=== PATIENT | male | born 1955 | race Caucasian/White ===

== ENCOUNTER 2023-09-08 07:35 | Outpatient (CLI) | payer MEDICARE, SELFPAY ==
--- OUTSIDE RECORDS SUMMARY | 2023-09-08 13:27 | XMS_ITS | Clinical Summary ---
Author Organization [facility] er Address [address] [place] [address] Care Team Providers Care Web Design Specialist Name Role Phone Morales Andrade MD Primary Care Provider Allergies No known active allergies Medications Medication Sig Dispensed Refills Start Date End Date Status aspirin 81 MG chewable tablet Chew 1 tablet (81 mg total) 1 (one) time each day Active Blood Glucose Monitoring Suppl kit 04/15/2011 Acti ve sildenafil (Viagra) 100 MG tabletIndications:Erec tile dysfunction, unspecified erectile dysfunction type May take 1/2 to one pill as needed in one day for ED 30 tablet 10 05/24/2020 Active triamcinolone (KENALOG) 0.1 % creamIndications:Itch of skin May use a small amount up to twice a day as needed for skin/ear itch 30 g 5 08/25/2021 Active amoxicillin (AMOXIL) 500 MG capsule 11/17/2021 Active Lancets miscIndications:Type 2 diabetes mellitus with other specified complication, without long-term current use of insulin ([facility]) ACCU-CHEK FASTCLIX LANCETS USE ONE LANCET TWICE A DAY. 200 each 3 12/11/2021 Active metFORMIN XR (GLUCOPHAGE-XR) 500 MG 24 hr tabletIndications:Type 2 diabetes mellitus with other specified complication, without long-term current use of insulin ([facility]) TAKE 2 TABLETS BY MOUTH TWICE A DAY FOR DIABETES. DO NOT CRUSH, CHEW, OR SPLIT. 360 tablet 3 08/31/2022 Active Empagliflozin 25 MG tabletIndications:Type 2 diabetes mellitus with other specified complication, without long-term current use of insulin ([facility]) Take one pill once a day in the AM for diabetes 90 tablet 3 08/31/2022 Active ezetimibe (ZETIA) 10 MG tabletIndications:Mixe d hyperlipidemia Take 1 tablet (10 mg total) by mouth 1 (one) time each day 90 tablet 3 08/31/2022 Active lisinopril (ZESTRIL) 20 MG tabletIndications:Esse ntial hypertension Take 1 tablet (20 mg total) by mouth 1 (one) time each day 90 tablet 3 08/31/2022 Active metoprolol succinate XL (TOPROL-XL) 50 MG 24 hr tabletIndications:Esse ntial hypertension Take one a day for blood pressure heart 90 tablet 3 08/31/2022 Active pramipexole (MIRAPEX) 0.5 MG tabletIndications:RLS (restless legs syndrome) May take ONE or as directed at night to help with restless legs 90 tablet 3 08/31/2022 Active rosuvastatin (CRESTOR) 20 MG tabletIndications:Mixe d hyperlipidemia Take 1 tablet (20 mg total) by mouth 1 (one) time each day 90 tablet 3 08/31/2022 Active nitroglycerin (NITROSTAT) 0.4 MG SL tabletIndications:ASCV D (arteriosclerotic cardiovascular disease) TAKE 1 PILL NEEDED FOR CHEST PAIN, MAY REPEAT EVERY 5 MINUTES IF NEEDED BUT IF NO RESPONSE BY THIRD DOSE CALL 911.USE UNDER TONGUE 25 tablet 3 03/03/2023 Active Active Problems Problem Noted Date Diagnosed Date RLS (restless legs syndrome) 10/11/2019 Mixed hyperlipidemia 12/08/2016 Unspecified disorder of circulatory system 12/08 Atherosclerotic heart diseas e of [place] coronary artery without angina pectoris 06/30/2016 Presence of aortocoronary bypass graft 7 Type 2 diabetes mellitus without complications 0 06/30/2016 Coronary artery disease invo lving coronary bypass graft of [place] heart without angina pectoris 11/28/2014 Overview: Overview: 08/1999 - CABG x 4 with a MORALES to LAD, SVG to the mLAD, SVG to the OM, and a SVG to the PDA Essential hypertension, benign 11/28/2014 Adenomatous colon polyp 03/24/2011 Advanced directives, counseling/discussion 07/29 Overview: Advance Directive Problem List Overview: Name Relationship Phone Primary Health Care Agent Alternative Health Care Agent Discussed advance care planning with patient; however, patient declined at this time. 07/29/2010 DDD (degenerative disc disease), lumbar 12/29/19 09 Encounters Date Type Department Care Team Description 08/17/2023 Orders Only [facility] Medicine 4th Floor [address] [place] [address] Morales Andrade MD Type 2 diabetes mellitus without complications (HCC) 08/04/2023 Orders Only Family Medicine 4th Floor [address] [place] [id number] Morales Andrade MD from Last 3 Months Immunizations Name Administration Dates Next Due COVID-19, mRNA, LNP-S, PF, 3 0mcg/0.3mL dose Pfizer 06/19/2021,11/16/2020 COVID-19, mRNA, LNP-S, bival ent booster 12 yr and older, PF, 30mcg/0.3mL dose (pfizer) 11/19/2021 Flu Vaccine High Dose 65yrs and Older IM 11/17/2022,11/14/2021,11/07/2020,11/08 INFLUENZA QUADRIVALENT MDV (IM) 12/25/2015,12/04 Influenza 6mo-64yrs Quad Pre servative Free IM 10/25/2018,11/16/2017,12/08/2016,12/24,12/04/2014 Influenza TIV (IM) 12/31/2013,12/02/2009 Pneumococcal Conjugate 13-Valent 06/30/2016 Pneumococcal Polysaccharide 06/17/2018 TD Preservative Free 03/23/2006 Tdap 06/30/2016 Zoster Recombinant 02/24/2018,11/16/2017 Family History Medical History Relation Comments Diabetes Brother 1 Vision loss Brother 1 Early Father Cancer Mother LUNG Relation Status Comments Brother 1 Alive Brother 2 Alive Father Mother Social History Tobacco Use Types Packs/Day Years Used Date Smoking Tobacco: Former Cigarettes Q uit: 07/13/1998 Smokeless Tobacco: Never Tobacco Cessation:Counseling Given: Not Answered Alcohol Use Standard Drinks/Week Comments No 0 (1 standard drink = 0.6 oz pur e alcohol) Humiliation, Afraid, Rape, and Kick questionnair e Answer Date Recorded Within the last year, have y ou been afraid of your partner or ex-partner? No 08/24/2022 Within the last year, have y ou been humiliated or emotionally abused in other ways by your partner or ex-partner? No Within the last year, have y ou been kicked, hit, slapped, or otherwise physically hurt by your partner or ex-partner? No 08/24/2022 Within the last year, have y ou been raped or forced to have any kind of sexual activity by your partner or ex-partner? No 08/24/2022 Social Connection and Isolation Panel [NHANES] A nswer Date Recorded In a typical week, how many times do you talk on the phone with family, friends, or neighbors? Three times a week 08/25/19 How often do you get togethe r with friends or relatives? Twice a week 08/24/2022 How often do you attend [facility] or jehovah's witness services? 1 to 4 times per year 08/24/2022 Do you belong to any clubs o r organizations such as roman catholic groups, unions, fraternal or athletic groups, or school groups? Yes 08/24/2022 How often do you attend meet ings of the clubs or organizations you belong to? 1 to 4 times per year 08/24/2022 Are you , , di vorced, , never , or living with a partner? 08/24/2022 AUDIT-C Answer Date Recorded Q1: How often do you have a drink containing alc ohol? 2-4 times a month 08/24/2022 Q2: How many drinks containi ng alcohol do you have on a typical day when you are drinking? 1 or 2 08/24/2022 Q3: How often do you have si x or more drinks on one occasion? Never 08/24/2022 Overall Financial Resource Strain (CARDIA) Answe r Date Recorded How hard is it for you to pa y for the very basics like food, housing, medical care, and heating? Not hard at all 08/24/2022 PHQ-2 Answer Date Recorded PHQ-9 Total Score 2 08/24/2022 [facility] - Occupational Stress Questionnaire Answer Date Recorded Do you feel stress - tense, restless, nervous, or anxious, or unable to sleep at night because your mind is troubled all the time - these days? To some extent 08/24/2022 Exercise Vital Sign Answer Date Recorde d On average, how many days pe r week do you engage in moderate to strenuous exercise (like a brisk walk)? 3 days 08/24/2022 On average, how many minutes do you engage in exercise at this level? 40 min 08/24/2022 Hunger Vital Sign Answer Date Recorded Within the past 12 months, y ou worried that your food would run out before you got the money to buy more. Never true 08/25/19 23 Within the past 12 months, t he food you bought just didn't last and you didn't have money to get more. Never true 08/24/2022 PRAPARE - Transportation Answer Date Re corded In the past 12 months, has l ack of transportation kept you from medical appointments or from getting medications? No 08/08 In the past 12 months, has l ack of transportation kept you from meetings, work, or from getting things needed for daily living? No 08/24/2022 Housing Stability Vital Sign Answer Kit e Recorded In the last 12 months, was t here a time when you were not able to pay the mortgage or rent on time? No 08/24/2022 In the last 12 months, how many places have you lived? 1 08/24/2022 In the last 12 months, was t here a time when you did not have a steady place to sleep or slept in a half-way (including now)? No 08/24/2022 Education Answer Date Recorded What is the highest level of school you have completed or the highest degree you have received? Some college, no degree 08/25/2021 Sex and Gender Information Value Date Recorded Sex Assigned at Not on file Gender Identity Not on file Sexual Orientation Not on file Last Filed Vital Signs Vital Sign Reading Time Taken Comments Blood Pressure 126/73 08/31/2022 8:13 AM CDT Pulse 52 08/31/2022 8:13 AM CDT Temperature 36.3 ??C (97.4 ??F) 08/31/2022 8:13 AM CD T Respiratory Rate 14 08/31/2022 8:13 AM CDT Oxygen Saturation 94% 08/31/2022 8:13 AM CDT Inhaled Oxygen Concentration - - Weight 78.9 kg (174 lb) 08/31/2022 8:13 AM CDT Height 173 cm (5' 8.11) 08/31/2022 8:13 AM CDT Body Mass Index 26.37 08/31/2022 8:13 AM CDT Plan of Treatment Health Maintenance Due Date Last Done Comments CT Colonography 1954 FIT-DNA 1954 Sigmoidoscopy 1954 iFOBT 1954 COVID-19 Vaccine ( season) 2022 11/19/2021, 06/19/2021, 11/16/2020 Diabetes: Hemoglobin A1C 02/25/2023 023, 11/18/2021, 08/21/2021, Additional history exists Diabetes: Retinopathy Screening 06/18/2023 06/17/2021, 07/02/2020, 08/03/2016 Pneumococcal Vaccine: 65+ Years (3 of 3 - PPSV23 or PCV20) 06/18/2023 06/17/2018, 06/30/2016 Colonoscopy 08/18/2023 08/17/2013, 02/2013, 01/22/2005 Colorectal Cancer Screening 08/18/2023 Diabetes: Urine Protein Screening 08/26/2023 08/25/2022, 10/11/2019, 12/04/2016 Lipid Panel 08/26/2023 08/25/2022, 11/09, 12/03/2021, Additional history exists Diabetic: Foot Exam 09/01/2023 08/31/2022, 08/25/2021, 05/24/2020, Additional history exists Fall Risk Performed 09/01/2023 08/31/2022 Medicare Annual Wellness Visit (AWV) 09/01/2023 08/31/2022 Influenza Vaccine (#1) 2023 , 11/14/2021, 11/07/2020, Additional history exists DTaP,Tdap,and Td Vaccines (2 - Td or Tdap) 06/30/2026 06/30/2016, 03/23/2006 Zoster Vaccines Completed 02/24/2018, 11/16/2017 HPV Vaccines Aged Out No longer eligi ble based on patient's age to complete this topic Procedures Procedure Name Priority Date/Time Associated Diagnosis Comments MICROALBUMIN/CREATI NINE RATIO Routine 08/25/2022 8:15 AM CDT Type 2 diabetes mellitus with other specified complication, without long-term current use of insulin (HCC) HEMOGLOBIN A1C Routine 08/25/2022 8:10 AM CDT Type 2 diabetes mellitus with other specified complication, without long-term current use of insulin (HCC) LIPID PANEL Routine 08/25/2022 8:10 AM CDT Mixed hyperlipidemia from Last 3 Months or Most Recently Relevant to Health Maintenance Results * Microalbumin/Creatinine Ratio (08/25/2022 8:15 AM CDT) Microalbumin,mg/ day 8.6 0.0 - 16.6 mg/L 08/25/2022 1:23 PM CDT [facility] Creatinine, Urine 114 mg/dL 08/25/2022 1:18 PM CDT [facility] Comment: No established reference range. Microalb/Creat Ratio 8 0 - 16 mg/g 08/25/2022 1:23 PM CDT [facility] Urine 08/25/2022 8:15 AM CDT 08/25/2022 12:28 PM CDT Rachell Flores MD LAB URINE ORDERABLES [facility] [address] [place] [address] * (ABNORMAL) Hemoglobin A1c (08/25/2022 8:10 AM CDT) Hemoglobin A1C 7.2(H) 4.0 - 5.6 % A1C 08/25/2022 1:39 PM CDT [facility] Comment: Reference Range 4.0-5.6% is for non- adults >=18 yrs <5.6% ? Non-Diabetic 5.7-6.4% ??Increased risk of Diabetes >=6.5% ?Indicative of Diabetes <7.0% ? ADA goal for glycemic control Methodology may not detect all hemoglobin variants which can affect A1c results. Method certified by National Glycohemoglobin Standardization Program. Blood 08/25/2022 8:10 AM CDT 08/25/2022 12:28 PM CDT Rachell Flores MD LAB BLOOD ORDERABLES [facility] [address] [place] [address] * Lipid panel (08/25/2022 8:10 AM CDT) Cholesterol 108 0 - 199 mg/dL 08/25/2022 1:40 PM T [facility] Comment: Recommended by National Cholesterol Education Program (ATP III) -------- Cholesterol Ranges -------- <200 ?Desirable 200-239 ? Borderline high >=240 ? High Triglycerides 85 0 - 149 mg/dL 08/25/2022 1:40 PM T [facility] Comment: -------- TRIG Ranges -------- <150 ?Normal 150-199 ? Borderline high 200-499 ? High >=500 ? Very high HDL 42 40 - 250 mg/dL 08/25/2022 1:40 PM T [facility] Comment: -------- HDL Ranges -------- <40 ?Low 40-59 ?Normal >=60 ? Optimal LDL Calculated 49 0 - 99 mg/dL 08/25/2022 1:40 PM CDT [facility] Comment: -------- LDL Ranges -------- <100 ? Optimal 100-129 ?Near optimal/above optimal 130-159 ?Borderline high 160-189 ?High >=190 ?Very high Fasting? Yes 08/25/2022 8:13 AM CDT [facility] Blood (Blood, Venous) 08/25/2022 8:10 AM CDT 08/25/2022 12:28 PM CDT Rachell Flores MD LAB BLOOD ORDERABLES [facility] [address] [place] [address] from Last 3 Months or Most Recently Relevant to Health Maintenance Care Teams Web Design Specialist Relationship Specialty Start Date End Date Morales Andrade MD [address] [place] [address] PCP - General 11/26/22
--- OUTSIDE RECORDS SUMMARY | 2023-09-08 13:27 | XMS_ITS | Encounter Summary ---
Author Organization [facility] er Address [address] [place] [address] Care Team Providers Care Packaging Line Attendant Name Role Phone Morales Andrade MD Primary Care Provider [phone] Reason for Referral * Consultation (Routine) - Authorized Specialty Diagnoses / Procedures Referred By Contac t Referred To Contact Virtual Care Diagnoses Type 2 diabetes mellitus without complications (HCC) Morales Andrade MD [address] [place] [address] [facility] Remote Monitoring [address] [place] [address] Referral ID Status Reason Start Date Expiration Date V isits Requested Visits Authorized [id number] Authorized 08/17/2023 08/17/2024 1 1 Encounter Details Date Type Department Care Team (Late st Contact Info) Description 08/17/2023 Orders Only [facility] 4th Floor [address] [place] [id number] Morales Andrade MD [address] [place] [address] Type 2 diabetes mellitus without complications (HCC) Social History Tobacco Use Types Packs/Day Years Used Date Smoking Tobacco: Former Cigarettes Q uit: 07/13/1998 Smokeless Tobacco: Never Alcohol Use Standard Drinks/Week Comments No 0 [...] week 08/24/2022 How often [facility] you attend [facility] services? 1 to 4 times per year 08/24/2022 Do you belong to any clubs o r organizations such as samaritan groups, unions, fraternal or athletic groups, or [...] Date Recorded PHQ-9 Total Score 2 08/24/2022 [facility] - Occupational [...] on file Sexual Orientation Not on file documented as of this encounter Plan of Treatment Scheduled Referrals Name Type Priority Associated Diagnoses Orde r Schedule Ambulatory Referral for Remote Monitoring Outpatient Referral Routine Type 2 diabetes mellitus without complications (HCC) Ordered: 08/17/2023 documented as of this encounter Visit Diagnoses Diagnosis Type 2 diabetes mellitus without complications (HCC) documented in this encounter Care Teams Packaging Line Attendant Relationship Specialty Start Date End Date Morales Andrade MD [address] [place] [address] PCP - General 11/26/22 documented as of this encounter
--- OUTSIDE RECORDS SUMMARY | 2023-09-08 13:28 | XMS_ITS | Encounter Summary ---
Author Organization [facility] Address [address] [place] [id number] Care Team Providers Care Green Marketer Name Role Phone Francisco Kumar MD Primary Care Provider [phone] Zacarias Flores Primary Care Provider Francisco Kumar MD Unavailable Francisco Kumar MD Unavailable [phone] Scott Hair MD Unavailable Scott Hair MD Unavailable Ana Maria Tinsley APRN SWATCH PASTER Unavailable Ana Maria Tinsley APRN SWATCH PASTER Unavailable Scott Hair MD Unavailable Scott Hair MD Unavailable Encounter Details Date Type Department Care Team (Late st Contact Info) Description 02/03/2010 [facility] Medical Advice [address] [address] Michaelle [facility] Social History Tobacco Use Types Packs/Day Years Used Date Smoking Tobacco: Former Comments:quit in about 1998; smoked about 2 ppd x 30 years Alcohol Use Standard Drinks/Week Comments Yes 0 (1 standard drink = 0.6 oz pur e alcohol) less than weekly Sex and Gender Information Value Date Recorded Sex Assigned at Male 09/20/2021 10:43 AM CDT Gender Identity Male 09/20/2021 10:43 AM CDT Sexual Orientation Not on file documented as of this encounter Plan of Treatment Upcoming Encounters Date Type Department Care Team (Late st Contact Info) Description 11/03/2023 7:45 AM CDT Office Visit [facility] [address] [facility] [address] [place] [phone] Scott Hair MD [address] [place] [address] documented as of this encounter Visit Diagnoses Not on filedocumented in this encounter Care Teams Green Marketer Relationship Specialty Start Date End Date Francisco Kumar MD PCP - General Internal Medicine 07/23/09 10/25/17 Zacarias Flores [address] [facility] [address] [place] [address] PCP - General Family Practice 10/26/17 [place] [address] [place] [address] [place] [address] PCP - Assigned PCP 03/23/16 04/12/18 [place] [address] [place] [address] [place] [id number] Assigned PCP 03/23/16 12/24/18 Scott Hair MD [address] [place] [address] Assigned Heart and Vascular Provider 12/01/19 05/18/20 Scott Hair MD [address] [place] [address] Assigned Heart and Vascular Provider 12/15/20 06/05/22 Ana Maria Tinsley APRN SWATCH PASTER [address] [place] [id number] Nurse Practitioner Cardiovascular Disease 11/26/21 Ana Maria Tinsley APRN SWATCH PASTER [address] [place] [id number] Assigned Heart and Vascular Provider 06/06/22 07/24/22 Scott Hair MD [address] [place] [id number] Cardiovascular Disease 07/09/22 Scott Hair MD [address] [place] [id number] Assigned Heart and Vascular Provider 07/25/22 documented as of this encounter
--- OUTSIDE RECORDS SUMMARY | 2023-09-08 13:28 | XMS_ITS | Encounter Summary ---
Author Organization [facility] Address [address] [place] [address]. [place] [address] Care Team Providers Care Data Analysis Intern Name Role Phone Gabo Poole MD Primary Care Provider [phone] Zacarias Flores Primary Care Provider Gabo Poole MD Unavailable [phone] Gabo Poole MD Unavailable [phone] Scott Hair MD Unavailable [phone] Scott Hair MD Unavailable Ana Maria Tinsley APRN CERTIFIED TUMOR REGISTRAR Unavailable Ana Maria Tinsley APRN CERTIFIED TUMOR REGISTRAR Unavailable [phone] Scott Hair MD Unavailable Scott Hair MD Unavailable Encounter Details Date Type Department Care Team (Late st Contact Info) Description 07/09/2010 Office Visit-[facility] [place] [id number] [facility] [address] [place] [address] Scott Hair MD [address] [facility] [address] [place] [id number] Social History Tobacco Use Types Packs/Day Years [...] on file documented as of this encounter Progress Notes * Scott Hair MD - 07/10/2010 1:40 PM CDT Progress Note Created by: Scott Hair M.D. DATE: 07/09/2010 ZAHRA ESCOBAR DATE OF : 1955 AGE: [age] years old Referring Physician: GABO POOLE Referring Clinic: [facility] CURRENT DIAGNOSES 1. - CAD, 414.00 2. - Hypercholesterolemia, 272.0 3. NM-S/P Lateral, 412 4. 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 ASCVD, 429.2 ALLERGIES NKA MEDICATIONS (prior to changes made today) 1. Aspirin 81 Mg Tablet, 1 p.o. daily 2. Simvastatin 80 Mg Tablet, 1 p.o. daily 3. Atenolol 25 Mg Tablet, 1 p.o. daily HS 4. Lisinopril 20 Mg Tablet, 1 p.o. daily 5. Viagra 50 mg Tablet, Take as Directed 6. Nitroglycerin 0.4 Mg Tablet, Sublingual, Take as Directed CHIEF COMPLAINTS HISTORY OF PRESENT ILLNESS I had the opportunity to see Mr. Zahra Escobar in cardiology clinic today for reevaluation of coronary artery disease. As you may recall, he had an inferior wall myocardial infarction in 1999 followedshortly after by bypass surgery. We have been following a small area of apical ischemia identified by nuclear stress testing over the past several years but managed it medically. He has not had any concerning cardiac symptoms associated with this and we have identified this as being a low risk situation. This year we did a stress echocardiogram, which identified only a small area of inferior infarctionwithout any identifiable ischemia. His left ventricular function was at the lower limits of normal and he was able to exercise for 11 minutes on the treadmill with no chest pain or EKG changes. He has continued to feel pretty good. He has been active without chest pain, shortness of breath orother concerning cardiac symptoms. His risk factors include hypertension and dyslipidemia, which have been well controlled. He has come in with some questions about the Niaspan. He saw in a news article that the Niaspan has not been effective and may actually be harmful and he wants to consider stopping that medication. On examination today, his blood pressure is 116/72mmHg, heart rate 64 and weight 192 pounds. His lungs are clear. His heart rhythm is regular. He has no cardiac murmurs or carotid bruits. PAST HISTORY Past Medical Illnesses: hyperlipidemia, hypertension-benign Past Cardiac Illnesses: angina, S/P myocardial infarction-lateral Infectious History: mumps Surgeries/Procedures - General: +mid LAD , CABG with MORALES to LAD and saphenous vein grafts to OM 1 PDA, knee surgery Cardiology Procedures-NonInvasive: echocardiogram December 1999, myocardial perfusion imaging (Nuclear) May 2006, May 2008, May 2009, stress echo June 2010 PMHx Stress Echo Results: 04/18/02=Abnl with EF of 49%, 06/18 basal inferior akinesis, abnormal wall motion from old infaction, no new stress induced abnormalities Left Ventricular Ejection Fraction: 50%via echo , EF<GT>50% by nuclear study -April 2005, EF 40-50%, by nuc 05/15, 05/18 EF 54% post stress, EF 61% rest by NUC, EF 50-55% by Echo -June 2010 Nuclear Results: 05/17 no sig change from 2007, 05/18 2 defects. 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 of roseacea EYES decreased acuity, wears eye glasses/contact lenses EARS, NOSE, THROAT, MOUTH denies any hearing loss, epistaxis, hoarseness or difficulty speaking. RESPIRATORY denies dyspnea, snoring, cough, wheezing or hemoptysis. CARDIOVASCULAR negative for palpitations, chest pain, orthopnea, PND, peripheral edema, syncope or claudication. ABDOMINAL denies change in bowel habits, dyspepsia, ulcer disease, hematochezia or melena. GENITOURINARY-MALE denies dysuria MUSCULOSKELETAL joint stiffness both knee(s), lower back pain-seen by chiropractor NEUROLOGICAL denies any history of recurrent headaches, strokes, TIA, or seizure disorder. PSYCHIATRIC denies any history of depression, substance abuse or change in cognitive functions. ENDOCRINE hyperlipidemia, energy level [place] HEMATOLOGICAL/IMMUNOLOGIC denies any food allergies, seasonal allergies, bleeding disorders or lymphadenopathy. PHYSICAL EXAMINATION VITAL SIGNS: Blood Pressure: 116/72Sitting, Left arm, regular cuff Pulse- 64.00/min. Weight- 191.60 lbs. Height- 69.00 Temperature- .00 CONSTITUTIONAL cooperative, alert and oriented,well developed, well nourished, in no acute distress. HEAD normocephalic, atraumatic NECK carotid pulses are full and equal bilaterally, JVP normal, no carotid bruit, no thyromegaly CHEST normal symmetry, no tenderness to palpation, normal respiratory excursion, no intercostal retraction, no use of accessory muscles, clear to auscultation and percussion. CARDIAC regular rhythm, S1 normal, S2 normal, No S3 or S4, Apical impulse not displaced, no murmurs, gallops or rubs detected. ABDOMEN abdomen soft, bowel sounds normoactive, no masses, no hepatosplenomegaly, non- tender, no bruits PERIPHERAL PULSES pulses full and equal in all extremities, no bruits auscultated. EXTREMITIES & BACK no deformities, clubbing, cyanosis, erythema or edema observed. There are no spinal abnormalities noted. Normal muscle strength and tone. NEUROLOGICAL no gross motor deficits noted, affect appropriate, oriented to time, person and place. MEDICATIONS UPDATED/STARTED TODAY: Nitroglycerin 0.4 Mg Tablet, Sublingual, Take as Directed, #25 MEDICATIONS REFILLED/STOPPED TODAY: Niacin 500 Mg Tablet 1 p.o. daily #0 Physician Order, Nitroglycerin 0.4 mg Tablet and Sublingual Take as Directed #25 Refill IMPRESSIONS/PLAN Mr. Zahra Escobar is a 54-year-old gentleman with hypertension, dyslipidemia, and coronary artery disease including an inferior infarction and bypass surgery in 1999. He has no ischemia by stress echocardiogram this year and is feeling quite good. He has no chest pain symptoms. I encouraged him to stay active and eat well and we will try stopping his Niaspan at his request. His last cholesterol numbers looked pretty good. His HDL was as low as 36 in the past and came up into the low 40s after westarted Niaspan but I am not convinced that this was entirely due to Niaspan. I am hoping that he will have a reasonable HDL after stopping his low dose of Niaspan 500 mg a day. We will recheck that in six weeks and if his HDL dropped significantly we will consider putting him back on Niaspan or some alternative. Otherwise I will plan on seeing him back again in one year. Thank you for allowing me to participate in Mr. Escobar's care. We will perform another stress echo next year before I see him. TODAYS ORDERS 1. F/U with Scott Hair MD 6 weeks 2. F/U with Scott Hair MD 1 year 3. Treadmill Stress Echo 1 year, OFF MEDS, 4. Lipid profile/ALT 1 year 5. Lipid profile/ALT 6 weeks Scott Hair M.D. documented in this encounter Plan of Treatment Upcoming Encounters Date Type Department Care Team (Late st Contact Info) Description 11/03/2023 7:45 AM CDT Office Visit [facility] [address] [facility] [address] [place] [id number] Scott Hair MD [address] [facility] [address] [place] [id number] documented as of this encounter Visit Diagnoses Not on filedocumented in this encounter Care Teams Data Analysis Intern Relationship Specialty Start Date End Date Gabo Poole MD PCP - General Internal Medicine 07/23/09 10/25/17 Zacarias Flores [address] [place] [address] PCP - General Family Practice 10/26/17 Gabo Poole MD [address] [place] [address] T[place] BRAR [id number] PCP - Assigned PCP 03/23/16 04/12/18 Gabo Poole MD [address] [place] [address] [place] [id number] Assigned PCP 03/23/16 12/24/18 Scott Hair MD [address] [place] [id number] Assigned Heart and Vascular Provider 12/01/19 05/18/20 Scott Hair MD [address] [place] [address] Assigned Heart and Vascular Provider 12/15/20 06/05/22 Ana Maria Tinsley APRN CERTIFIED TUMOR REGISTRAR [address] [place] [id number] Nurse Practitioner Cardiovascular Disease 11/26/21 Ana Maria Tinsley APRN CERTIFIED TUMOR REGISTRAR [address] [place] [id number] Assigned Heart and Vascular Provider 06/06/22 07/24/22 Scott Hair MD [address] [place] [address] MD Cardiovascular Disease 07/09/22 Scott Hair MD [address] [place] [id number] Assigned Heart and Vascular Provider 07/25/22 documented as of this encounter
--- OUTSIDE RECORDS SUMMARY | 2023-09-08 13:28 | XMS_ITS | Referral Summary ---
Author Organization [facility] Address [address] [place] [address] Care Team Providers Care Arm Maker Name Role Phone Zacarias Flores Primary Care Provider [phone] Ana Maria Tinsley APRN ELECTRO MECHANICAL TECHNOLOGIST Unavailable [phone] Rosemarie Carrera MD Unavailable Rosemarie Carrera MD Unavailable Encounters Date Type Department Care Team Description 07/20/2023 Travel 07/20/2023 9:40 AM CDT - 07/20/2023 11:59 PM CDT Hospital Encounter [facility] [address] [address] Rosemarie Carrera MD Coronary artery disease involving coronary bypass graft of red cliff heart without angina pectoris; PVC's (premature ventricular contractions) Discharge Disposition: Home or Self Care from Last 3 Months Allergies No known active allergies Medications Medication Sig Dispensed Refills Start Date End Date Status Blood Glucose Monitoring Suppl (ONE TOUCH ULTRA SYSTEM KIT) W/DEVICE KIT 04/15/2011 Active aspirin 81 MG tabletIndications:Cor onary artery disease involving coronary bypass graft of red cliff heart without angina pectoris Take 1 tablet (81 mg) by mouth daily 30 tablet 11 12/04/2014 Active blood glucose monitoring (ONE TOUCH ULTRA) test stripIndications:Type 2 diabetes mellitus with hyperglycemia (H) Test twice a day 3 Box 3 06/13/2015 Active blood glucose monitoring (ONE TOUCH ULTRASOFT) lancetsIndications:Ty pe 2 diabetes mellitus with hyperglycemia (H) Test AM and PM 3 Box 3 06/13/2015 Active nitroglycerin (NITROSTAT) 0.4 MG SL tabletIndications:Cor onary artery disease involving red cliff coronary artery of red cliff heart without angina pectoris Place 1 tablet (0.4 mg) under the tongue every 5 minutes as needed up to 3 tablets per episode. 30 tablet 3 12/09/2015 Active metFORMIN (GLUCOPHAGE-XR) 500 MG 24 hr tabletIndications:Typ e 2 diabetes mellitus with hyperglycemia, without long-term current use of insulin (H) Take 2 tablets (1,000 mg) by mouth 2 times daily 180 tablet 11/15/2018 Active pramipexole (MIRAPEX) 0.5 MG tablet Take 0.5 mg by mouth daily Active glipiZIDE (GLUCOTROL) 5 MG tablet TAKE 1/2 TABLET BY MOUTH TWICE DAILY FOR DIABETES 08/26/2021 Active empagliflozin (JARDIANCE) 10 MG TABS tabletIndications:Typ e 2 diabetes mellitus with hyperglycemia, without long-term current use of insulin (H) Take 1 tablet (10 mg) by mouth daily 90 tablet 3 07/22/2022 Active ezetimibe (ZETIA) 10 MG tabletIndications:Hyp erlipidemia with target LDL less than 70 Take 1 tablet (10 mg) by mouth daily 90 tablet 3 07/22/2022 Active lisinopril (ZESTRIL) 20 MG tabletIndications:Ess ential hypertension, benign Take 1 tablet (20 mg) by mouth daily 90 tablet 3 07/22/2022 Active rosuvastatin (CRESTOR) 20 MG tabletIndications:Hyp erlipidemia with target LDL less than 70 Take 1 tablet (20 mg) by mouth daily 90 tablet 3 07/22/2022 Active metoprolol succinate ER (TOPROL XL) 50 MG 24 hr tabletIndications:Cor onary artery disease involving coronary bypass graft of red cliff heart without angina pectoris Take 1 tablet (50 mg) by mouth daily 90 tablet 3 07/22/2022 Active Active Problems Problem Noted Date Diagnosed Date Coronary artery disease invo lving coronary bypass graft of red cliff heart without angina pectoris 11/28/2014 Overview: 08/1999 - CABG x 4 with a MORALES to LAD, SVG to the mLAD, SVG to the OM, and a SVG to the PDA Essential hypertension, benign 11/28/2014 Type 2 diabetes mellitus with hyperglycemia 11/09 Adenomatous colon polyp 03/24/2011 Hyperlipidemia with target LDL less than 70 07/10 Overview: Diagnosis updated by automated process. Provider to review and confirm. DDD (degenerative disc disease), lumbar 12/29/19 09 Resolved Problems Problem Noted Date Diagnosed Date Resolved Date Lumbago 12/11/2013 02/16/2014 HTN (hypertension) BP Goal <140/90 05/09/2012 08/21/2014 Advanced directives, counseling/discussion 07/29/2010 07/26/2023 Overview: Advance Directive Problem List Overview: Name Relationship Phone Primary Health Care Agent Alternative Health Care Agent Discussed advance care planning with patient; however, patient declined at this time. 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 Provider to review and confirm.) Myocardial infarction 2014 Overview: 2000 Immunizations Name Administration Dates Next Due Influenza Vaccine >6 months,quad, PF 12/25/2015, 12/04/2014 TD,PF 7+ ([facility]) 03/23/2006 Social History Tobacco Use Types Packs/Day Years Used Date Smoking Tobacco: Former Cigarettes 2 30 0 07/13/1968 - 07/13/1998 Smokeless Tobacco: Never Tobacco Cessation:Counseling Given: Not Answered Alcohol Use Standard Drinks/Week Comments Yes 0 (1 standard drink = 0.6 oz pur e alcohol) 2 beers a week if that PHQ-2 Answer Date Recorded PHQ-2 Score 0 02/15/2018 Adolescent Education Answer Date Record ed Getting School Help Needed Not on file 11/08 Sex and Gender Information Value Date Recorded Sex Assigned at Male 09/20/2021 10:43 AM CDT Gender Identity Male 09/20/2021 10:43 AM CDT Sexual Orientation Not on file Last Filed Vital Signs Vital Sign Reading Time Taken Comments Blood Pressure 133/83 07/22/2022 8:50 AM CDT Pulse 62 07/22/2022 8:50 AM CDT Temperature 36.7 ??C (98.1 ??F) 11/11/2017 9:08 AM CD T Respiratory Rate 20 11/11/2017 1:30 PM CDT Oxygen Saturation 98% 07/22/2022 8:50 AM CDT Inhaled Oxygen Concentration - - Weight 79.4 kg (175 lb) 07/22/2022 8:50 AM CDT Height 172.7 cm (5' 8) 07/22/2022 8:50 AM CDT Body Mass Index 26.61 07/22/2022 8:50 AM CDT Plan of Treatment Upcoming Encounters Date Type Department Care Team (Late st Contact Info) Description 11/03/2023 7:45 AM CDT Office Visit [facility] [place] [address] [facility] [address] [place] [phone] Rosemarie Carrera MD [address] [facility] [address] [place] [id number] Procedures Procedure Name Priority Date/Time Associated Diagnosis Comments ECHO COMPLETE Routine 07/20/2023 10:15 AM CDT Coronary artery disease involving coronary bypass graft of red cliff heart without angina pectoris PVC's (premature ventricular contractions) LIPID PROFILE Routine 12/03/2021 12:11 PM CDT Hyperlipidemia with target LDL less than 70 BASIC METABOLIC PANEL Routine 12/03/2021 12:11 PM CDT Essential hypertension, benign HEMOGLOBIN A1C Routine 08/21/2021 9:11 AM CDT EYE EXAM - HIM SCAN 09/06/2014 1 2:00 AM CDT ALBUMIN RANDOM URINE QUANTITATIVE Routine 08/21/2014 8:49 AM CDT Type 2 diabetes, HbA1C goal < 8% (H) C FOOT EXAM Routine 08/21/2014 8:45 AM CDT Type 2 diabetes, HbA1C goal < 8% (H) COLONOSCOPY - HIM SCAN Routine 08/17/2013 from Last 3 Months or Most Recently Relevant to Health Maintenance Results * ECHO COMPLETE (07/20/2023 10:15 AM CDT) LVEF 60-65% CARDIOLOGY RESULTS Anatomical Region Laterality Modality Echocardiography 07/20/2023 9:50 AM CDT Narrative 07/20/2023 10:39 AM CDT [id number]^DEBI^ROSEMARIE^DESTINI [facility]ch[facility] Laboratory [address] [facility] [address] [place] [address] Name: ZAHRA ESCOBAR : 1955 Study Date: 07/20/2023 09:50 AM Age: 67 yrs Gender: Male Patient Location: [facility] Reason For Study: Coronary artery disease involving coronary bypass graft of nativ Ordering Physician: ROSEMARIE CARRERA Referring Physician: ROSEMARIE CARRERA Performed By: Abhi Mo BSA: 1.9 m2 Height: 68 in Weight: 175 lb HR: 76 BP: 163/93 mmHg Procedure Complete Echo Adult. Interpretation Summary 1. Left ventricular systolic function is normal. The visual ejection fraction is 55-60%. 2. Severe hypokinesis of the inferolateral wall. 3. The right ventricle is normal in structure, function and size. 4. There is mild (1+) mitral regurgitation. 5. Ascending aorta dilatation is present, 4.1 cm. Left Ventricle The left ventricle is normal in size. There is normal left ventricular wall thickness. Left ventricular systolic function is normal. The visual ejection fraction is 60-65%. Left ventricular diastolic function is normal. Severe hypokinesis of the inferolateral wall. Right Ventricle The right ventricle is normal in structure, function and size. Atria Normal left atrial size. Right atrial size is normal. There is no color Doppler evidence of an atrial shunt. Mitral Valve The mitral valve is normal in structure and function. There is mild (1+) mitral regurgitation. Tricuspid Valve The tricuspid valve is normal in structure and function. There is trace tricuspid regurgitation. Aortic Valve The aortic valve is trileaflet with aortic valve sclerosis. Pulmonic Valve The pulmonic valve is not well seen, but is grossly normal. Vessels Ascending aorta dilatation is present. Inferior vena cava not well visualized for estimation of right atrial pressure. Pericardium There is no pericardial effusion. Rhythm Sinus rhythm was noted. MMode/2D Measurements & Calculations IVSd: 1.1 cm LVIDd: 4.6 cm LVIDs: 3.7 cm LVPWd: 1.1 cm FS: 18.4 % LV mass(C)d: 179.4 grams LV mass(C)dI: 92.9 grams/m2 Ao root diam: 3.3 cm asc Aorta Diam: 4.1 cm LVOT diam: 2.3 cm LVOT area: 4.0 cm2 Ao root diam index Ht(cm/m): 1.9 Ao root diam index BSA (cm/m2): 1.7 Asc Ao diam index BSA (cm/m2): 2.1 Asc Ao diam index Ht(cm/m): 2.4 EF Biplane: 52.1 % LA Volume (BP): 69.7 ml LA Volume Index (BP): 36.1 ml/m2 RV Base: 4.0 cm RWT: 0.48 TAPSE: 1.7 cm Doppler Measurements & Calculations MV E max cosme: 95.1 cm/sec MV A max cosme: 65.1 cm/sec MV E/A: 1.5 MV dec slope: 562.8 cm/sec2 MV dec time: 0.17 sec PA acc time: 0.12 sec TR max cosme: 236.2 cm/sec TR max P.3 mmHg E/E' av.6 Lateral E/e': 10.2 Medial E/e': 13.0 RV S Cosme: 11.6 cm/sec Report approved by: Alli Ramires 07/20/2023 10:39 AM Procedure Note Rosa Love MD - 07/20/2023 [id number]^DEBI^ROSEMARIE^DESTINI [facility] [address] [facility] [address] [place] [address] Name: ZAHRA ESCOBAR : 1955 Study Date: 07/20/2023 09:50 AM Age: 67 yrs Gender: Male Patient Location: [facility] Reason For Study: Coronary artery disease involving coronary bypass graftof nativ Ordering Physician: ROSEMARIE CARRERA Referring Physician: ROSEMARIE CARRERA Performed By: Abhi Mo BSA: 1.9 m2 Height: 68 in Weight: 175 lb HR: 76 BP: 163/93 mmHg Procedure Complete Echo Adult. Interpretation Summary 1. Left ventricular systolic function is normal. The visual ejectionfraction is 55-60%. 2. Severe hypokinesis of the inferolateral wall. 3. The right ventricle is normal in structure, function and size. 4. There is mild (1+) mitral regurgitation. 5. Ascending aorta dilatation is present, 4.1 cm. Left Ventricle The left ventricle is normal in size. There is normal left ventricularwall thickness. Left ventricular systolic function is normal. The visualejection fraction is 60-65%. Left ventricular diastolic function is normal.Severe hypokinesis of the inferolateral wall. Right Ventricle The right ventricle is normal in structure, function and size. Atria Normal left atrial size. Right atrial size is normal. There is no color Doppler evidence of an atrial shunt. Mitral Valve The mitral valve is normal in structure and function. There is mild (1+) mitral regurgitation. Tricuspid Valve The tricuspid valve is normal in structure and function. There is trace tricuspid regurgitation. Aortic Valve The aortic valve is trileaflet with aortic valve sclerosis. Pulmonic Valve The pulmonic valve is not well seen, but is grossly normal. Vessels Ascending aorta dilatation is present. Inferior vena cava not wellvisualized for estimation of right atrial pressure. Pericardium There is no pericardial effusion. Rhythm Sinus rhythm was noted. MMode/2D Measurements & Calculations IVSd: 1.1 cm LVIDd: 4.6 cm LVIDs: 3.7 cm LVPWd: 1.1 cm FS: 18.4 % LV mass(C)d: 179.4 grams LV mass(C)dI: 92.9 grams/m2 Ao root diam: 3.3 cm asc Aorta Diam: 4.1 cm LVOT diam: 2.3 cm LVOT area: 4.0 cm2 Ao root diam index Ht(cm/m): 1.9 Ao root diam index BSA (cm/m2): 1.7 Asc Ao diam index BSA (cm/m2): 2.1 Asc Ao diam index Ht(cm/m): 2.4 EF Biplane: 52.1 % LA Volume (BP): 69.7 ml LA Volume Index (BP): 36.1 ml/m2 RV Base: 4.0 cm RWT: 0.48 TAPSE: 1.7 cm Doppler Measurements & Calculations MV E max cosme: 95.1 cm/sec MV A max cosme: 65.1 cm/sec MV E/A: 1.5 MV dec slope: 562.8 cm/sec2 MV dec time: 0.17 sec PA acc time: 0.12 sec TR max cosme: 236.2 cm/sec TR max P.3 mmHg E/E' av.6 Lateral E/e': 10.2 Medial E/e': 13.0 RV S Cosme: 11.6 cm/sec Report approved by: Alli Ramires 07/20/2023 10:39 AM Rosemarie Carrera MD CV ECHO ORDERABLES * Lipid Profile (12/03/2021 12:11 PM CDT) Cholesterol 101 <200 mg/dL 12/03/2021 1:24 PM CDT LABORATORY Triglycerides 119 <150 mg/dL 12/03/2021 1:24 PM CDT LABORATORY Direct Measure HDL 44 >=40 mg/dL 2021 1:24 PM CDT LABORATORY LDL Cholesterol Calculated 33 <=100 mg/dL 12/03/2021 1:24 PM CDT LABORATORY Non HDL Cholesterol 57 <130 mg/dL 12/03/2021 1:24 PM CDT LABORATORY Patient Fasting > 8hrs? No 12/03/2021 1:24 PM CDT CARD LABORATORY Blood STRUCTURE OF RIGHT UPPER LIMB / Unknown Venipuncture / Unknown 12/03/2021 12:11 PM CDT 12/03/2021 12:11 PM CDT Narrative LABORATORY - 12/03/2021 1:24 PM CDT Cholesterol Desirable: ??<200 mg/dL Triglycerides Normal: ??Less than 150 mg/dL Borderline High: ??150-199 mg/dL High: ??200-499 mg/dL Very High: ??Greater than or equal to 500 mg/dL Direct Measure HDL Female: ??Greater than or equal to 50 mg/dL Male: ??Greater than or equal to 40 mg/dL LDL Cholesterol Desirable: ??<100mg/dL Above Desirable: ??100-129 mg/dL Borderline High: ??130-159 mg/dL High: ??160-189 mg/dL Very High: ??>= 190 mg/dL Non HDL Cholesterol Desirable: ??130 mg/dL Above Desirable: ??130-159 mg/dL Borderline High: ??160-189 mg/dL High: ??190-219 mg/dL Very High: ??Greater than or equal to 220 mg/dL Rosemarie Carrera MD LAB - BLOOD ORDERABL ES LABORATORY [facility] [address] floor, [address] [place] [address], [facility] [phone] CARD LABORATORY [address] [facility] [address] [place] [address] * (ABNORMAL) Basic metabolic panel (12/03/2021 12:11 PM CDT) Sodium 137 133 - 144 mmol/L 12/03/2021 1:23 PM CDT LABORATORY Potassium 4.3 3.4 - 5.3 mmol/L 12/03/2021 1:23 PM CDT LABORATORY Chloride 107 94 - 109 mmol/L 12/03/2021 1:23 PM CDT LABORATORY Carbon Dioxide (CO2) 29 20 - 32 mmol/L 12/03/2021 1:23 PM CDT LABORATORY Anion Gap 1(L) 3 - 14 mmol/L 12/03/2021 1:23 PM CDT LABORATORY Urea Nitrogen 27 7 - 30 mg/dL 12/03/2021 1:23 PM CDT LABORATORY Creatinine 0.87 0.66 - 1.25 mg/dL 12/03/2021 1:23 PM CDT LABORATORY Calcium 9.4 8.5 - 10.1 mg/dL 12/03/2021 1:23 PM CDT LABORATORY Glucose 99 70 - 99 mg/dL 12/03/2021 1:23 PM CDT LABORATORY GFR Estimate >90 >60 mL/min/1.7 3m2 12/03/2021 1:23 PM CDT LABORATORY Comment:Effective January 092020 eGFRcr in adults is calculated using the 2020 CKD-EPI creatinine equation which includes age and gender (Pellet Machine Operator et al., NEJM, DOI: 10.1056/ABZRsc0864870) Blood STRUCTURE OF RIGHT UPPER LIMB / Unknown Venipuncture / Unknown 12/03/2021 12:11 PM CDT 12/03/2021 12:11 PM CDT Rosemarie Carrera MD LAB - BLOOD ORDERABL ES LABORATORY [facility] [address], [address] [place] [address], [facility] [phone] * (ABNORMAL) Hemoglobin A1c (08/21/2021 9:11 AM CDT) Hemoglobin A1C (External) 7.3(H) 4.0 - 5.6 % NON-INTERFACED (ONBASE SCANS) Blood 08/21/2021 9:11 AM CDT Narrative ZECHARIAH PFT - 08/25/2021 2:53 PM CDT Verified by Mari Eid on 08/25/2021. Zacarias Flores LAB - BLOOD ORDERABL ES KURTISLisa PFT NON-INTERFACED (ONBASE SCANS) * EYE EXAM - HIM SCAN (09/06/2014 12:00 AM CDT) 09/06/2014 Provider Outside OTHER * Microalbumin quantitative random urine (08/21/2014 8:49 AM CDT) Creatinine Urine 99 mg/dL [facility] Albumin Urine mg/L <5 mg/L [facility] Albumin Urine mg/g Cr Unable to calculate due to low value 0 - 17 mg/g Cr [facility] Urine specimen (specimen) 08/21/2014 8:49 AM CDT 08/21/2014 8:50 AM CDT Francisco Kumar MD LAB - URINE ORDERA BLES [facility] [address] [place] [address], [facility] [phone] * Colonoscopy - HIM Scan (08/17/2013) Provider Outside PROCEDURES from Last 3 Months or Most Recently Relevant to Health Maintenance Care Teams Arm Maker Relationship Specialty Start Date End Date [facility] [address] [place] [address] PCP - General Family Practice 10/26/17 Ana Maria Tinsley APRN ELECTRO MECHANICAL TECHNOLOGIST [address] [place] [place] [id number] Nurse Practitioner Cardiovascular Disease 11/26/21 Rosemarie Carrera MD [address] [place] [id number] Cardiovascular Disease 07/09/22 Rosemarie Carrera MD [address] [place] [id number] Assigned Heart and Vascular Provider 07/25/22
--- OUTSIDE RECORDS SUMMARY | 2023-09-08 13:28 | XMS_ITS | Encounter Summary ---
Author Organization [facility] Address [address] [place] [address] Care Team Providers Care Carbon Cleaner Name Role Phone SandraZacarias Primary Care Provider [phone] Ana Maria Tinsley APRN COIN COUNTER AND WRAPPER Unavailable Rosemarie Carrera MD Unavailable Rosemarie Carrera MD Unavailable Reason for Referral * CV Testing (Routine) - Closed Specialty Diagnoses / Procedures Referred By Contac t Referred To Contact Cardiology Diagnoses Coronary artery disease involving coronary bypass graft of mi'kmaq heart without angina pectoris PVC's (premature ventricular contractions) Procedures Echocardiogram Complete ZZHC TTE W/DOPPLER, COMPLETE [facility] ECHO COMPLETE W DOPPLER W CONTRAST [facility] ECHO COMPLETE W DOPPLER W/O CONTRAST [facility] IV PUSH SINGLE, INITIAL SUBSTANCE ZZHC US GUIDE FOR PERICARDIOCENTESIS ZZHC ECHO MYOCARD BX ZZC INJECTION, PERFLUTREN LIPID MICROSPHERES, PER ML ZZHC STATISTIC IV PUSH SINGLE INITIAL SUBSTANCE TN ECHO MYOCARD BX TN INJECTION, PERFLUTREN LIPID MICROSPHERES, PER ML TN TTE W/DOPPLER, COMPLETE TN IV PUSH SINGLE, INITIAL SUBSTANCE TN TTE W/DOPPLER, COMPLETE TN TTE W/DOPPLER, COMPLETE HC US GUIDE FOR PERICARDIOCENTESIS HC ECHO MYOCARD BX HC IV PUSH SINGLE, INITIAL SUBSTANCE HC STATISTIC IV PUSH SINGLE INITIAL SUBSTANCE HC ECHO COMPLETE W DOPPLER W CONTRAST HC ECHO COMPLETE W DOPPLER W/O CONTRAST Rosemarie Carrera MD [address] [facility] [address] [place] [address] [facility] [address] [address] [place] [phone] Referral ID Status Reason Start Date Expiration Date Visits Re quested Visits Authorized [id number] Closed 07/22/2022 07/22/2023 1 1 Reason for Visit * CV Testing (Routine) - Closed Specialty Diagnoses / Procedures Referred By Contac t Referred To Contact Cardiology Diagnoses Coronary artery disease involving coronary bypass graft of mi'kmaq heart without angina pectoris PVC's (premature ventricular contractions) Procedures Echocardiogram Complete ZZHC TTE W/DOPPLER, COMPLETE ZZHC ECHO COMPLETE W DOPPLER W CONTRAST ZZHC ECHO COMPLETE W DOPPLER W/O CONTRAST ZZHC IV PUSH SINGLE, INITIAL SUBSTANCE ZZHC US GUIDE FOR PERICARDIOCENTESIS ZZHC ECHO MYOCARD BX ZZC INJECTION, PERFLUTREN LIPID MICROSPHERES, PER ML ZZHC STATISTIC IV PUSH SINGLE INITIAL SUBSTANCE TN ECHO MYOCARD BX TN INJECTION, PERFLUTREN LIPID MICROSPHERES, PER ML TN TTE W/DOPPLER, COMPLETE TN IV PUSH SINGLE, INITIAL SUBSTANCE TN TTE W/DOPPLER, COMPLETE TN TTE W/DOPPLER, COMPLETE HC US GUIDE FOR PERICARDIOCENTESIS HC ECHO MYOCARD BX HC IV PUSH SINGLE, INITIAL SUBSTANCE HC STATISTIC IV PUSH SINGLE INITIAL SUBSTANCE HC ECHO COMPLETE W DOPPLER W CONTRAST HC ECHO COMPLETE W DOPPLER W/O CONTRAST Rosemarie Carrera MD [address] [place] [address] [facility] [address] [place] [address] Referral ID Status Reason Start Date Expiration Date Visits Re quested Visits Authorized [id number] Closed 07/22/2022 07/22/2023 1 1 Encounter Details Date Type Department Care Team (Latest Contact Info) Description 07/20/2023 9:40 AM CDT - 07/20/2023 11:59 PM CDT Hospital Encounter [facility] [address] [address] [place] [phone] Rosemarie Carrera MD [address] [place] [address] Coronary artery disease involving coronary bypass graft of mi'kmaq heart without angina pectoris; PVC's (premature ventricular contractions) Discharge Disposition: Home or Self Care Social History Tobacco Use Types Packs/Day Years Used Date Smoking Tobacco: Former Cigarettes 2 30 0 07/13/1968 - 07/13/1998 Smokeless Tobacco: Never Alcohol Use Standard Drinks/Week Comments Yes 0 [...] on file documented as of this encounter Medications at Time of Discharge Medication Sig Dispensed Refills Start Date End Date aspirin 81 MG tabletIndications:Coronar y artery disease involving coronary bypass graft of mi'kmaq heart without angina pectoris Take 1 tablet (81 mg) by mouth daily 30 tablet 11 12/04/2014 blood glucose monitoring ([facility] TOUCH ULTRA) test stripIndications:Type 2 diabetes mellitus with hyperglycemia (H) Test twice a day 3 Box 3 06/13/2015 blood glucose monitoring (ONE TOUCH ULTRASOFT) lancetsIndications:Type 2 diabetes mellitus with hyperglycemia (H) Test AM and PM 3 Box 3 06/13/2015 Blood Glucose Monitoring Suppl (ONE TOUCH ULTRA SYSTEM KIT) W/DEVICE KIT 04/15/2011 empagliflozin (JARDIANCE) 10 MG TABS tabletIndications:Type 2 diabetes mellitus with hyperglycemia, without long-term current use of insulin (H) Take 1 tablet (10 mg) by mouth daily 90 tablet 3 07/22/2022 ezetimibe (ZETIA) 10 MG tabletIndications:Hyperli pidemia with target LDL less than 70 Take 1 tablet (10 mg) by mouth daily 90 tablet 3 07/22/2022 glipiZIDE (GLUCOTROL) 5 MG tablet TAKE 1/2 TABLET BY MOUTH TWICE DAILY FOR DIABETES 08/26/2021 lisinopril (ZESTRIL) 20 MG tabletIndications:Essenti al hypertension, benign Take 1 tablet (20 mg) by mouth daily 90 tablet 3 07/22/2022 metFORMIN (GLUCOPHAGE-XR) 500 MG 24 hr tabletIndications:Type 2 diabetes mellitus with hyperglycemia, without long-term current use of insulin (H) Take 2 tablets (1,000 mg) by mouth 2 times daily 180 tablet 11/15/2018 metoprolol succinate ER (TOPROL XL) 50 MG 24 hr tabletIndications:Coronar y artery disease involving coronary bypass graft of mi'kmaq heart without angina pectoris Take 1 tablet (50 mg) by mouth daily 90 tablet 3 07/22/2022 nitroglycerin (NITROSTAT) 0.4 MG SL tabletIndications:Coronar y artery disease involving mi'kmaq coronary artery of mi'kmaq heart without angina pectoris Place 1 tablet (0.4 mg) under the tongue every 5 minutes as needed up to 3 tablets per episode. 30 tablet 3 12/09/2015 pramipexole (MIRAPEX) 0.5 MG tablet Take 0.5 mg by mouth daily rosuvastatin (CRESTOR) 20 MG tabletIndications:Hyperli pidemia with target LDL less than 70 Take 1 tablet (20 mg) by mouth daily 90 tablet 3 07/22/2022 documented as of this encounter Plan of Treatment Upcoming Encounters Date Type Department Care Team (Late st Contact Info) Description 11/03/2023 7:45 AM CDT Office Visit [facility] [id number] [facility] [address] [place] [phone] Rosemarie Carrera MD [address] [facility] [address] [place] [id number] documented as of this encounter Procedures Procedure Name Priority Date/Time Associated Diagnosis Comments ECHO COMPLETE Routine 07/20/2023 10:15 AM CDT Coronary artery disease involving coronary bypass graft of mi'kmaq heart without angina pectoris PVC's (premature ventricular contractions) documented in this encounter Results * ECHO COMPLETE (07/20/2023 10:15 AM CDT) LVEF 60-65% CARDIOLOGY RESULTS Anatomical Region Laterality Modality Echocardiography 07/20/2023 9:50 AM CDT Narrative 07/20/2023 10:39 AM CDT [id number]^DEBI^ROSEMARIE^DESTINI [facility] Heart [facility]chocardiography Laboratory [address] [facility] [address] [place] [address] Name: ZAHRA ESCOBAR : 1955 Study Date: 07/20/2023 09:50 AM Age: 67 yrs Gender: Male Patient Location: [facility] Reason For Study: Coronary artery disease involving [...] Procedure Note Rosa Love MD - 07/20/2023 [id number]^DEBI^ROSEMARIE^DESTINI [facility] [address] [facility] [address] [place] [address] Name: ZAHRA ESCOBAR : 1955 Study Date: 07/20/2023 09:50 AM Age: 67 yrs Gender: Male Patient Location: [facility] Reason For Study: Coronary artery disease involving [...] AM Rosemarie Carrera MD CV ECHO ORDERABLES documented in this encounter Visit Diagnoses Diagnosis Coronary artery disease involving coronary bypass graft of mi'kmaq heart without angina pectoris PVC's (premature ventricular contractions) Other premature beats documented in this encounter Care Teams Carbon Cleaner Relationship Specialty Start Date End Date Zacarias Flores [address] [place] [address] PCP - General Family Practice 10/26/17 Ana Maria Tinsley APRN CNP [address] [place] [id number] Nurse Practitioner Cardiovascular Disease 11/26/21 Rosemarie Carrera MD [address] [place] [address] Cardiovascular Disease 07/09/22 Rosemarie Carrera MD [address] [place] [id number] Assigned Heart and Vascular Provider 07/25/22 documented as of this encounter
--- OUTSIDE RECORDS SUMMARY | 2023-09-08 13:28 | XMS_ITS | Encounter Summary ---
Author Organization [facility] Address [address] [place] [address] Care Team Providers Care Online Communications Manager Name Role Phone Zacarias Flores Primary Care Provider Scott Hair MD Unavailable Ana Maria Tinsley APRN SVP Unavailable Ana Maria Tinsley APRN SVP Unavailable Scott Hair MD Unavailable Scott Hair MD Unavailable Encounter Details Date Type Department Care Team (Late st Contact Info) Description 08/21/2021 External Order Results [facility] [address] [place] [address] Outside, Provider Social History Tobacco Use Types Packs/Day Years Used Date Smoking Tobacco: Former Cigarettes 2 30 0 07/13/1968 - 07/13/1998 Smokeless Tobacco: Never Alcohol Use Standard Drinks/Week Comments Yes 0 (1 standard drink = 0.6 oz pur e alcohol) 2 beers a week if that PHQ-2 Answer Date Recorded PHQ-2 Score 0 02/15/2018 Sex and Gender Information Value Date Recorded Sex Assigned at Male 09/20/2021 10:43 AM CDT Gender Identity Male 09/20/2021 10:43 AM CDT Sexual Orientation Not on file documented as of this encounter Plan of Treatment Upcoming Encounters Date Type Department Care Team (Late st Contact Info) Description 11/03/2023 7:45 AM CDT Office Visit [facility] [address] [place] [phone] Scott Hair MD [address] [place] [id number] documented as of this encounter Procedures Procedure Name Priority Date/Time Associated Diagnosis Comments CBC WITH PLATELETS & DIFFERENTIAL Routine 08/21/2021 9:11 AM CDT PSA TUMOR MARKER Routine 08/21/2021 9:11 AM CDT LIPID PROFILE Routine 08/21/2021 9:11 AM CDT HEMOGLOBIN A1C Routine 08/21/2021 9:11 AM CDT ALT Routine 08/21/2021 9:11 AM CDT BASIC METABOLIC PANEL Routine 08/21/2021 9:11 AM CDT documented in this encounter Results * (ABNORMAL) CBC with Platelets & Differential (08/21/2021 9:11 AM CDT) WBC Count (External) 11.9(H) 3.5 - 10.5 K/UL NON-INTERFACE D (ONBASE SCANS) RBC Count (External) 5.01 4.30 - 5.70 M/UL NON-INTERFACE D (ONBASE SCANS) Hemoglobin (External) 14.4 12.5 - 17.5 g/dL NON-INTERFACE D (ONBASE SCANS) Hematocrit (External) 44.4 38.0 - 50.0 % NON-INTERFACE D (ONBASE SCANS) MCV (External) 88.6 81.2 - 95.1 fL NON-INTERFACE D (ONBASE SCANS) MCH (External) 28.7 26.0 - 32.0 pg NON-INTERFACE D (ONBASE SCANS) MCHC (External) 32.4 32.0 - 36.0 g/dL NON-INTERFACE D (ONBASE SCANS) RDW (External) 13.0 11.8 - 15.6 % NON-INTERFACE D (ONBASE SCANS) Platelet Count (External) 158 150 - 400 K/UL NON-INTERFACE D (ONBASE SCANS) Absolute Lymphocytes (External) 6.0(H) 0.9 - 2.9 K/UL NON-INTERFACE D (ONBASE SCANS) % Lymphocytes (External) 50.0 % NON-INTERFACE D (ONBASE SCANS) Absolute Others (External) 0.9 0.4 - 1.5 K/UL NON-INTERFACE D (ONBASE SCANS) Comment:Others = Midsize sona ls %Others (External) 7.3 % NON-INTERFACE D (ONBASE SCANS) Comment:Others = Midsize sona ls Absolute Neutrophils (External) 5.0 1.7 - 7.0 K/UL NON-INTERFACE D (ONBASE SCANS) % Neutrophils (External) 42.7 % NON-INTERFACE D (ONBASE SCANS) Blood 08/21/2021 9:11 AM CDT Narrative BREEZE PFT - 08/25/2021 2:53 PM CDT Verified by Mari Eid on 08/25/2021. [facility] - BLOOD ORDERABL ES Performing Organization Address [facility] Co de Phone Number BREEZE PFT NON-INTERFACED (ONBASE SCANS) * (ABNORMAL) Hemoglobin A1c (08/21/2021 9:11 AM CDT) Hemoglobin A1C (External) 7.3(H) 4.0 - 5.6 % NON-INTERFACED (ONBASE SCANS) Blood 08/21/2021 9:11 AM CDT Narrative BREEZE PFT - 08/25/2021 2:53 PM CDT Verified by Mari Eid on 08/25/2021. [facility] - BLOOD ORDERABL ES BREEZE PFT NON-INTERFACED (ONBASE SCANS) * PSA tumor marker (08/21/2021 9:11 AM CDT) PSA (External) 0.9 0.0 - 5.1 ng/mL NON-INTERFACED (ONBASE SCANS) Blood 08/21/2021 9:11 AM CDT Narrative BREEZE PFT - 08/25/2021 2:53 PM CDT Verified by Mari Eid on 08/25/2021. [facility] Flores LAB - BLOOD ORDERABL ES Performing Organization Address [facility] de Phone Number BREEZE PFT NON-INTERFACED (ONBASE SCANS) * Lipid Profile (08/21/2021 9:11 AM CDT) Cholesterol (External) 122 0 - 199 mg/dL NON-INTERFACE D (ONBASE SCANS) Triglycerides (External) 113 0 - 149 mg/dL NON-INTERFACE D (ONBASE SCANS) HDL Cholesterol (External) 47 40 - 250 mg/dL NON-INTERFACE D (ONBASE SCANS) LDL-Cholesterol (External) 52 0 - 99 mg/dL NON-INTERFACE D (ONBASE SCANS) Blood 08/21/2021 9:11 AM CDT Narrative BREEZE PFT - 08/25/2021 2:53 PM CDT Verified by Mari Eid on 08/25/2021. [facility] Flores LAB - BLOOD ORDERABL ES Performing Organization Address [facility] Phone Number BREEZE PFT NON-INTERFACED (ONBASE SCANS) * ALT (08/21/2021 9:11 AM CDT) ALT (External) 32 0 - 49 U/L NON- INTERFACED (ONBASE SCANS) Blood 08/21/2021 9:11 AM CDT Narrative BREEZE PFT - 08/25/2021 2:53 PM CDT Verified by Mari Eid on 08/25/2021. [facility] Flores LAB - BLOOD ORDERABL ES Performing Organization Address [facility] de Phone Number BREEZE PFT NON-INTERFACED (ONBASE SCANS) * (ABNORMAL) Basic metabolic panel (08/21/2021 9:11 AM CDT) Sodium (External) 141 135 - 145 mmol/L NON-INTERFACED (ONBASE SCANS) Potassium (External) 5.3(H) 3.5 - 5.1 mmol/L NON-INTERFACED (ONBASE SCANS) Chloride (External) 104 98 - 107 mmol/L NON-INTERFACED (ONBASE SCANS) CO2 (External) 30 22 - 31 mmol/L NON-INTERFACED (ONBASE SCANS) Urea Nitrogen (External) 24 5 - 25 mg/dL NON-INTERFACED (ONBASE SCANS) Creatinine (External) 0.7 0.6 - 1.4 mg/dL NON-INTERFACED (ONBASE SCANS) Glucose (External) 135(H) 70 - 100 mg/dL NON-INTERFACED (ONBASE SCANS) Calcium (External) 10.0 8.4 - 10.2 mg/dL NON-INTERFACED (ONBASE SCANS) GFR Estimated (External) >60 >=60 ml/min/1.7 3m2 NON-INTERFACED (ONBASE SCANS) Blood 08/21/2021 9:11 AM CDT Narrative DALIAROSLYN PFT - 08/25/2021 2:53 PM CDT Verified by Mari Eid on 08/25/2021. [facility] LAB - BLOOD ORDERABL ES ZECHARIAH PFT NON-INTERFACED (ONBASE SCANS) documented in this encounter Visit Diagnoses Not on filedocumented in this encounter Care Teams Online Communications Manager Relationship Specialty Start Date End Date SandraRashidl [address] [place] [address] PCP - General Family Practice 10/26/17 Scott Hair MD [address] [place] [address] Assigned Heart and Vascular Provider 12/15/20 06/05/22 Ana Maria Tinsley APRN SVP [address] [id number] Nurse Practitioner Cardiovascular Disease 11/26/21 Ana Maria Tinsley APRN SVP [address] [id number] Assigned Heart and Vascular Provider 06/06/22 07/24/22 Scott Hair MD [address] [place] [address] Cardiovascular Disease 07/09/22 Scott Hair MD [address] [place] [address] Assigned Heart and Vascular Provider 07/25/22 documented as of this encounter
--- OUTSIDE RECORDS SUMMARY | 2023-09-08 13:28 | XMS_ITS | Encounter Summary ---
Author Organization [facility] er Address [address] [place] [address] Care Team Providers Care Continuous Improvement Engineer Name Role Phone Morales Andrade MD Primary Care Provider [phone] Encounter Details Date Type Department Care Team (Late st Contact Info) Description 06/30/2022 Telephone [place] [address] [place] [address] Rachell Flores MD [address] [phone] Social History Tobacco Use Types Packs/Day Years Used Date Smoking Tobacco: Former Cigarettes Q uit: 07/13/1998 Smokeless Tobacco: Never Alcohol Use Standard Drinks/Week Comments No 0 (1 standard drink = 0.6 oz pur e alcohol) AUDIT-C Answer Date Recorded Q1: How often do you have a drink containing alc ohol? Never 10/11/2019 Average Number of Drinks Not on file 020 Frequency of Binge Drinking Not on file 03/2019 PHQ-2 Answer Date Recorded PHQ-9 Total Score 4 11/24/2021 Education Answer Date Recorded What is the highest level of school you have completed or the highest degree you have received? Some college, no degree 08/25/2021 Sex and Gender Information Value Date Recorded Sex Assigned at Not on file Gender Identity Not on file Sexual Orientation Not on file documented as of this encounter Plan of Treatment Not on file documented as of this encounter Visit Diagnoses Not on filedocumented in this encounter Care Teams Continuous Improvement Engineer Relationship Specialty Start Date End Date Morales Andrade MD [address] [place] [address] PCP - General 11/26/22 documented as of this encounter
--- OUTSIDE RECORDS SUMMARY | 2023-09-08 13:28 | XMS_ITS | Encounter Summary ---
Author Organization [place] Address [address] [place] [address]. [place] [address] Care Team Providers Care Delivery Rn Name Role Phone Maxine Casas MD Primary Care Provider Unavailable Gabo Poole MD Primary Care Provider Zacarias Flores Primary Care Provider Gabo Poole MD Unavailable [phone] Gabo Poole MD Unavailable [phone] Scott Hair MD Unavailable Scott Hair MD Unavailable Ana Maria Tinsley APRN [place] Unavailable [phone] Ana Maria Tinsley APRN [place] Unavailable [phone] Scott Hair MD Unavailable Scott Hair MD Unavailable [phone] Encounter Details Date Type Department Care Team (Late st Contact Info) Description 07/10/2009 Office Visit-[facility] [place] [address] [facility] [address] [place] [address] Scott Hair MD [address] [facility] [address] [place] [address] Social History Tobacco Use Types Packs/Day Years [...] Progress Notes * Scott Hair MD - 07/11/2009 11:15 AM CDT Progress Note Created by: Scott Hair M.D. DATE: 07/10/2009 ZAHRA ESCOBAR DATE OF : 1955 AGE: [age] years old Referring Physician: GABO POOLE Referring Clinic: [facility] CURRENT DIAGNOSES 1. AR-S/P Lateral, 412 2. - Hypercholesterolemia, 272.0 3. - CABG, V45.81 4. - CAD, 414.00 5. ASCVD, 429.2 ALLERGIES NKA MEDICATIONS (prior to changes made today) 1. Aspirin 81 Mg Tablet, 1 p.o. daily 2. Simvastatin 80 Mg Tablet, 1 p.o. daily 3. Atenolol 25 Mg Tablet, 1 p.o. daily HS 4. Lisinopril 20 Mg Tablet, 1 p.o. daily 5. Niacin 500 Mg Tablet, 1 p.o. daily 6. Nitroglycerin 0.4 mg Tablet, Sublingual, Take as Directed 7. Viagra 50 mg Tablet, Take as Directed CHIEF COMPLAINTS F/u stress test HISTORY OF PRESENT ILLNESS I had the opportunity to see Mr. Zahra Escobar in Cardiology Clinic today for reevaluation of coronary artery disease. As you may recall, Mr. Escobar had a small nontransmural inferior infarction in 1999, followed shortly after by bypass surgery. A couple of years ago we identified a small area of apical ischemia in addition to his inferior infarction by nuclear stress testing. Thus far, he has been asymptomatic. This year he continues to do well without any concerning cardiac symptoms. He has no chest pain, pressure, or tightness, and no discomfort in the left arm, neck, jaw, back, or shoulder. He has no shortness of breath, lightheadedness, palpitations, or syncope. His stress test this year again demonstrates a small area of apical ischemia, as well as the nontransmural inferior infarction. His left ventricular function remains normal. He has cardiac risk factors of hypertension and dyslipidemia, as well as a strong family history ofheart disease. On examination, his blood pressure is 110/70, heart rate 56, and weight 181 pounds. His lungs are clear. Heart rhythm is regular. He has no cardiac murmurs and no carotid bruits. PAST HISTORY Past Medical Illnesses: hyperlipidemia, hypertension-benign Past Cardiac Illnesses: angina, S/P myocardial infarction-lateral Infectious History: mumps Surgeries/Procedures - General: +mid LAD , CABG with MORALES to LAD and saphenous vein grafts to OM 1 PDA, knee surgery Cardiology Procedures-Noninvasive: echocardiogram December 1999, myocardial perfusion imaging (Nuclear) May 2006, May 2008, May 2009, PMHx Stress Echo Results: 04/18/02=Abnl with EF of 49% Left Ventricular Ejection Fraction: 50%via echo , EF<GT>50% by nuclear study -April 2005, EF 40-50%, by nuc 05/15, 05/18 EF 54% post stress, EF 61% rest by NUC Nuclear Results: 05/17 no sig change from 2007, 05/18 2 defects. 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 INTEGUMENTARY denies any change in hair or nails, rashes, or skin lesions., recent hx. of roseacea EYES decreased acuity, wears eye glasses/contact lenses EARS, NOSE, THROAT, MOUTH outer ear infection, currently being treated with antibiotics RESPIRATORY denies dyspnea, snoring, cough, wheezing or hemoptysis. CARDIOVASCULAR negative for palpitations, chest pain, orthopnea, PND, peripheral edema, syncope or claudication. ABDOMINAL denies change in bowel habits, dyspepsia, ulcer disease, hematochezia or melena. GENITOURINARY-MALE denies dysuria MUSCULOSKELETAL joint stiffness both knee(s) NEUROLOGICAL denies any history of recurrent headaches, strokes, TIA, or seizure disorder. PSYCHIATRIC denies any history of depression, substance abuse or change in cognitive functions. ENDOCRINE positive for hyperlipidemia, increased fatigue HEMATOLOGICAL/IMMUNOLOGIC denies any food allergies, seasonal allergies, bleeding disorders or lymphadenopathy. PHYSICAL EXAMINATION VITAL SIGNS: Blood Pressure: 110/70Sitting, Left arm, regular cuff Pulse- 56.00/min. Weight- 181.20 lbs. Height- 69.00 Temperature- .00 CONSTITUTIONAL cooperative, [...] time, person and place. MEDICATIONS UPDATED/STARTED TODAY: MPRESSION: Mr. Zahra Escobar is a 53-year-old gentleman with hypertension, dyslipidemia, and coronary artery disease as described above. He is doing well at this point with no concerning cardiac symptoms and a mildly abnormal stress test. This seems stable compared to last year. I would suggest thatwe continue to follow him medically and we will repeat the stress test again next year with a stress echocardiogram to help reduce radiation exposure. I will see him after that study to discuss his progress. TODAYS ORDERS 1. F/U with Scott Hair MD 1 year 2. Treadmill Stress Echo 1 year,may include the addition of contrast,bubble study,or the change to either a limited or complete study-see policy Scott Hair M.D. documented in this encounter Plan of Treatment Upcoming Encounters Date Type Department Care Team (Late st Contact Info) Description 11/03/2023 7:45 AM CDT Office Visit [facility] [address] [place] [phone] Scott Hair MD [address] [place], [place] [id number] [place] [id number] documented as of this encounter Visit Diagnoses Not on filedocumented in this encounter Care Teams Delivery Rn Relationship Specialty Start Date End Date Yessenia Maxine Wiggins MD PCP - General 03/24/02 07/22/09 Gabo Poole MD PCP - General Internal Medicine 07/23/09 10/25/17 Zacarias Flores [address] [place] [address] PCP - General Family Practice 10/26/17 Gabo Poole MD [address] [place] [address] [place] [address] PCP - Assigned PCP 03/23/16 04/12/18 Gabo Poole MD [address] [place] [address] [place] [address] Assigned PCP 03/23/16 12/24/18 Scott Hair MD [address] [place] [address] Assigned Heart and Vascular Provider 12/01/19 05/18/20 Scott Hair MD [address] [place] [id number] Assigned Heart and Vascular Provider 12/15/20 06/05/22 Ana Maria Tinsley APRN [place] [address] [place] [place] [address] Nurse Practitioner Cardiovascular Disease 11/26/21 Ana Maria Tinsley APRN [place] [address] [place] [address] Assigned Heart and Vascular Provider 06/06/22 07/24/22 Scott Hair MD [address] [place] [address] MD Cardiovascular Disease 07/09/22 Scott Hair MD [address] [place] [address] Assigned Heart and Vascular Provider 07/25/22 documented as of this encounter
--- OUTSIDE RECORDS SUMMARY | 2023-09-08 13:28 | XMS_ITS | Clinical Summary ---
Author Organization [place] Address [address] [place] [address] Care Team Providers Care Body Work Auto Trimmer Name Role Phone Zacarias Flores Primary Care Provider [phone] Ana Maria Tinsley APRN TIER [place] Unavailable Rosemarie Carrera MD Unavailable [phone] Rosemarie Carrrea MD Unavailable [phone] Allergies No known active allergies Medications Medication Sig Dispensed Refills Start Date End Date Status Blood Glucose Monitoring Suppl (ONE TOUCH ULTRA SYSTEM KIT) W/DEVICE KIT 04/15/2011 Active aspirin 81 MG tabletIndications:Cor onary artery disease involving coronary bypass graft of wrangell heart without angina pectoris Take 1 tablet [...] MG SL tabletIndications:Cor onary artery disease involving wrangell coronary artery of wrangell heart without angina pectoris Place 1 tablet [...] artery disease involving coronary bypass graft of wrangell heart without angina pectoris Take 1 tablet (50 mg) by mouth daily 90 tablet 3 07/22/2022 Active Active Problems Problem Noted Date Diagnosed Date Coronary artery disease invo lving coronary bypass graft of wrangell heart without angina pectoris 11/28/2014 Overview: 08/1999 [...] and confirm.) Myocardial infarction 2014 Overview: 2000 Encounters Date Type Department Care Team Description 07/20/2023 9:40 AM CDT - 07/20/2023 11:59 PM CDT Hospital Encounter [facility] [address] [place] [phone] Rosemarie Carrera MD Coronary artery disease involving coronary bypass graft of wrangell heart without angina pectoris; PVC's (premature ventricular contractions) Discharge Disposition: Home or Self Care 07/20/2023 Travel from Last 3 Months Immunizations Name Administration Dates Next Due Influenza Vaccine >6 months,quad, PF 12/25/2015, 12/04/2014 TD,PF 7+ (Tenivac) 03/23/2006 Family History Medical History Relation Comments Diabetes Brother 3 Cerebrovascular Disease Father Dementia Mother Alcohol/Drug No family hx of Cancer - colorectal No family hx of Eye Disorder No family hx of no glaucoma Prostate Cancer No family hx of Relation Status Comments Brother 1 Alive Brother 2 Alive Brother 3 Father age 58 Mother Alive Social History Tobacco Use Types Packs/Day Years [...] Description 11/03/2023 7:45 AM CDT Office Visit [facility] [address] [facility] [address] [place] [phone] Rosemarie Carrera MD [address] [facility] [address] [place] [address] Health Maintenance Due Date Last Done Comments ANNUAL REVIEW OF HM ORDERS 1955 CT COLONOGRAPHY 1955 FIT 1955 FLEX SIG 1955 sDNA (Cologuard) 1955 HEPATITIS C SCREENING 1972 LUNG CANCER SCREENING 2004 RSV VACCINE ( & 60+) (1 - 1-dose 60+ series) 2014 ADVANCE CARE PLANNING 07/30/2015 07/29/2010, 011 DIABETIC FOOT EXAM 08/22/2015 08/21/2014, 11/21/2012 MICROALBUMIN 08/22/2015 08/21/2014, 11/15/2012 EYE EXAM 09/07/2015 09/06/2014 FALL RISK ASSESSMENT 07/24/2019 A1C 02/21/2022 08/21/2021, 11/1 07/2015, 06/13/2015, Additional history exists MEDICARE ANNUAL WELLNESS VISIT 08/25/2022 08/25/2021, 02/13/2010, 12/28/2008, Additional history exists COVID-19 Vaccine ( season) 2022 11/19/2021, 06/19/2021, 11/16/2020 BMP 12/03/2022 12/03/2021, 08/08, 11/11/2018, Additional history exists LIPID 12/03/2022 12/03/2021, 08/08, 11/11/2018, Additional history exists PHQ-2 (once per calendar year) 2023 06/13/2015 Pneumococcal Vaccine: 65+ Years (3 of 3 - PPSV23 or PCV20) 06/18/2023 06/17/2018, 06/30/2016 COLONOSCOPY 08/18/2023 08/17/2013, 01/22/2005 COLORECTAL CANCER SCREENING 08/18/2023 INFLUENZA VACCINE (#1) 2023 , 11/14/2021, 11/07/2020, Additional history exists DTAP/TDAP/TD IMMUNIZATION (2 - Td or Tdap) 06/30/2026 06/30/2016, 03/23/2006 ZOSTER IMMUNIZATION Completed 02/24/2018, 8 HPV IMMUNIZATION Aged Out No longer e ligible based on patient's age to complete this topic IPV IMMUNIZATION Aged Out No longer e ligible based on patient's age to complete this topic MENINGITIS IMMUNIZATION Aged Out No l onger eligible based on patient's age to complete this topic RSV MONOCLONAL ANTIBODY Aged Out No l onger eligible based on patient's age to complete this topic Procedures Procedure Name Priority Date/Time Associated Diagnosis Comments ECHO COMPLETE Routine 07/20/2023 10:15 AM CDT Coronary artery disease involving coronary bypass graft of wrangell heart without angina pectoris PVC's (premature ventricular [...] AM CDT Narrative 07/20/2023 10:39 AM CDT [id number]^DEBI^ROSEMARIE^DESTINI [facility] Heart Echocardi[facility] Laboratory [address] [facility] [address] [place] [address] Name: ZAHRA ESCOBAR : 1955 Study Date: 07/20/2023 09:50 AM Age: 67 yrs Gender: Male Patient Location: [facility] Reason For Study: Coronary artery disease involving [...] Procedure Note Rosa Love MD - 07/20/2023 [id number]^DEBI^ROSEMARIE^DESTINI [facility] Heart [facility]ch[facility] Laboratory [address] [facility] [address] [place] [address] Name: ZAHRA ESCOBAR : 1955 Study Date: 07/20/2023 09:50 AM Age: 67 yrs Gender: Male Patient Location: [facility] Reason For Study: Coronary artery disease involving [...] * Lipid Profile (12/03/2021 12:11 PM CDT) [facility] Cholesterol 101 <200 mg/dL 12/03/2021 1:24 PM [...] MD LAB - BLOOD ORDERABL ES LABORATORY [facility] Acute Care Lab [address], [address] [place] [address], [facility] [phone] [facility] LAB[facility]ORY [address] [place] [address] * (ABNORMAL) Basic metabolic panel (12/03/2021 12:11 PM CDT) [facility] Signature Sodium 137 133 - 144 mmol/L 12/03/2021 [...] creatinine equation which includes age and gender (Demetrio et al., NEJM, DOI: 10.1056/OSHQxr0799221) Blood STRUCTURE OF RIGHT UPPER LIMB / Unknown Venipuncture / Unknown 12/03/2021 12:11 PM CDT 12/03/2021 12:11 PM CDT Rosemarie Carrera MD LAB - BLOOD ORDERABL ES [facility] Acute Care Lab [address] floor, [address] [place] [address], [facility] [phone] * (ABNORMAL) Hemoglobin A1c (08/21/2021 9:11 AM CDT) Hemoglobin A1C (External) 7.3(H) 4.0 - 5.6 % NON-INTERFACED (ONBASE SCANS) Blood 08/21/2021 9:11 AM CDT Narrative DALIAEZE PFT - 08/25/2021 2:53 PM CDT Verified by Mari Eid on 08/25/2021. Zacarias Flores LAB - BLOOD ORDERABL ES Performing Organization Address City/[facility]/ZIP Co de Phone Number DALIAEZE PFT NON-INTERFACED (ONBASE SCANS) * EYE EXAM - HIM SCAN (09/06/2014 12:00 AM CDT) 09/06/2014 Provider Outside OTHER * Microalbumin quantitative random urine (08/21/2014 8:49 AM CDT) Creatinine Urine 99 mg/dL [facility] Albumin Urine mg/L <5 mg/L [facility] Albumin Urine mg/g Cr Unable to calculate due to low value 0 - 17 mg/g Cr [facility] Urine specimen (specimen) 08/21/2014 8:49 AM CDT 08/21/2014 8:50 AM CDT Francisco Kumar MD LAB - URINE ORDERA BLES [facility] [address] [place] [address], [facility] [phone] * Colonoscopy - HIM Scan (08/17/2013) Provider Outside PROCEDURES from Last 3 Months or Most Recently Relevant to Health Maintenance Care Teams Body Work Auto Trimmer Relationship Specialty Start Date End Date Zacarias Flores [address] [place] [address] PCP - General Family Practice 10/26/17 Ana Maria Tinsley APRN TIER [place] [address] [place] [place] [address] Nurse Practitioner Cardiovascular Disease 11/26/21 Rosemarie Carrera MD [address] [place] [address] Cardiovascular Disease 07/09/22 Rosemarie Carrera MD [address] [place] [address] Assigned Heart and Vascular Provider 07/25/22
--- OUTSIDE RECORDS SUMMARY | 2023-09-08 13:28 | XMS_ITS | Encounter Summary ---
Author Organization [facility] Address [address] [place] [address]. [place] [address] Care Team Providers Care Director Of Front Office Name Role Phone Maxine Casas MD Primary Care Provider Unavailable Francisco Kumar MD Primary Care Provider Zacarias Floers Primary Care Provider [phone] Francisco Kumar MD Unavailable [phone] Francisco Kumar MD Unavailable [phone] Scott Hair MD Unavailable Scott Hair MD Unavailable [phone] Ana Maria Tinsley APRN NURSERY HAND Unavailable [phone] Ana Maria Tinsley APRN NURSERY HAND Unavailable [phone] Scott Hair MD Unavailable [phone] Scott Hair MD Unavailable [phone] Encounter Details Date Type Department Care Team (Late st Contact Info) Description 06/01/2007 Office Visit-[facility] [place] [address] [facility] [address] [place] [phone] Scott Hair MD [address] [facility] [address] [place] [address] Social History Tobacco Use Types Packs/Day Years [...] Progress Notes * Scott Hair MD - 06/06/2007 2:40 PM CDT Progress Note Created by: Scott Hair M.D. DATE: 06/01/2007 RHEAALEKSEY ZHARA DATE OF : 1955 AGE: [age] years old Referring Physician: ZACARIAS MCCLOUD Referring Clinic: [facility] CURRENT DIAGNOSES 1. - CAD, 414.00 2. NC-S/P Lateral, 412 3. - Hypercholesterolemia, 272.0 4. - CABG, V45.81 ALLERGIES NKA MEDICATIONS (prior to changes made today) 1. Atenolol 25 Mg, 1 p.o. qHS 2. Lisinopril 20 Mg, 1 p.o. q.d. 3. Aspirin 81 mg, 1 p.o. q.d. 4. Nitroglycerin 0.4 mg, Take as Directed 5. Simvastatin 80 mg, 1 p.o. q.d. 6. Cephalexin monohydrate 500 mg, 1 p.o. q.i.d. 7. Viagra 50 Mg, Take as Directed 8. Niacin 500 mg, 1 p.o. q.d. CHIEF COMPLAINTS Yearly f/u HISTORY OF PRESENT ILLNESS I had the opportunity to see Mr. Zahra Escobar in cardiology clinic today for reevaluation of coronary artery disease. He has significant risk factors including history of smoking, hypertension, and dyslipidemia. He presented with a myocardial infarction back in 1999 and underwent bypass surgery on August 13, 1999. He has been consistently doing very well. He has no recurrent chest pain, shortness ofbreath, light-headedness, or syncope. His cholesterol values are under excellent control. His blood pressure has also been consistently good. He quit smoking one year before his myocardial infarction. On physical examination today, his blood pressure is 128/74, his heart rate is 68 beats per minute,and his weight is 186 pounds. His lungs are clear. His heart rhythm is regular. He has no cardiac murmurs and no carotid bruits. 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 PHYSICAL EXAMINATION VITAL SIGNS: Blood Pressure: 128/74 Sitting, Right arm, regular cuff Pulse- 68.00/min. Weight- 186.00 lbs. Height- 69.00 Temperature- .00 CONSTITUTIONAL cooperative, [...] time, person and place. MEDICATIONS UPDATED/STARTED TODAY: Simvastatin 80 mg, 1 p.o. q.d., DIRECTED Cephalexin monohydrate 500 mg, 1 p.o. q.i.d., DIRECTED MEDICATIONS REFILLED/STOPPED TODAY: Lipitor 40 Mg 1 p.o. q.d. #90 Physician Order IMPRESSION: Mr. Zahra Escobar is a 51-year-old gentleman with history of coronary artery disease, myocardial infarction, and bypass surgery. His last stress test was a year ago on 05/18/06, which showed a moderate sized area of infarction involving the inferolateral wall as well as a small apical area of ischemia. He had mild left ventricular systolic dysfunction at that time. He fortunately is doing very well at this time without concerning cardiac symptoms. He has good control of his cardiac risk factors including hypertension and dyslipidemia. I will plan to see him back again in one year and do some repeat stress testing prior to my visit with him. Thank you very much for allowing me to participate in Mr. Escobar's care. TODAYS ORDERS 1. Treadmill Nuclear Study 1 year 2. F/U with Scott Hair MD 1 year Scott Hair M.D. documented in this encounter Plan of Treatment Upcoming Encounters Date Type Department Care Team (Late st Contact Info) Description 11/03/2023 7:45 AM CDT Office Visit [facility] Heart [facility] [address] [place] [address] [address] [place] [address] Scott Hari MD [address] [place] [address] [address] [place], [place] [phone] documented as of this encounter Visit Diagnoses Not on filedocumented in this encounter Care Teams Director Of Front Office Relationship Specialty Start Date End Date Maxine Casas MD PCP - General 03/24/02 07/22/09 Francisco Kumar MD PCP - General Internal Medicine 07/23/09 10/25/17 Zacarias Flores [address] [facility] [address] [place] [address] PCP - General Family Practice 10/26/17 Francisco Kumar MD [address] [facility] [place] [address] PCP - Assigned PCP 03/23/16 04/12/18 Francisco Kumar MD [address] [facility] [place] [address] Assigned PCP 03/23/16 12/24/18 Scott Hair MD [address] [place] [address] Assigned Heart and Vascular Provider 12/01/19 05/18/20 Scott Hair MD [address] [place] [address] Assigned Heart and Vascular Provider 12/15/20 06/05/22 Ana Maria Tinsley APRN NURSERY HAND [address] [place] [address] Nurse Practitioner Cardiovascular Disease 11/26/21 Ana Maria Tinsley APRN NURSERY HAND [address] [place] [address] Assigned Heart and Vascular Provider 06/06/22 07/24/22 Scott Hair MD [address] [place] [address] Cardiovascular Disease 07/09/22 Scott Hair MD [address] [place] [address] Assigned Heart and Vascular Provider 07/25/22 documented as of this encounter
--- OUTSIDE RECORDS SUMMARY | 2023-09-08 13:28 | XMS_ITS | Encounter Summary ---
Author Organization [place] Address [address] [place] [address]. [place] [address] Care Team Providers Care Shower Attendant Name Role Phone Gabo Poole MD Primary Care Provider [phone] Zacarias Flores Primary Care Provider Gabo Poole MD Unavailable Gabo Poole MD Unavailable [phone] Scott Hair MD Unavailable Scott Hair MD Unavailable Ana Maria Tinsley APRN MILLSTONE CLEANER Unavailable Ana Maria Tinsley APRN MILLSTONE CLEANER Unavailable Scott Hair MD Unavailable Scott Hair MD Unavailable Encounter Details Date Type Department Care Team (Late st Contact Info) Description 07/30/2011 Office Visit-[facility] [place] [id number] [facility] [address] [place] [address] Scott Hair MD [address] [facility] [address] [place], [place] [address] Social History Tobacco Use Types Packs/Day Years Used Date Smoking Tobacco: Former Cigarettes Q uit: 07/13/1998 Smokeless Tobacco: Never Comments:quit in about 1998; smoked about 2 [...] Progress Notes * Scott Hair MD - 08/04/2011 3:43 PM CDT Progress Note Created by: Scott Hair M.D. DATE: 07/30/2011 ZAHRA ESCOBAR DATE OF : 1955 AGE: [age] years old Referring Physician: GABO POOLE Referring Clinic: [facility] CURRENT DIAGNOSES 1. - CAD, 414.00 2. - Hypercholesterolemia, 272.0 3. MN-S/P Lateral, 412 4. 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 ASCVD, 429.2 ALLERGIES NKA MEDICATIONS (prior to changes made today) 1. Aspirin 81 Mg Tablet, 1 p.o. daily 2. Atenolol 25 Mg Tablet, 1 p.o. daily HS 3. Crestor 20 mg Tablet, 1 p.o. daily 4. Lisinopril 20 Mg Tablet, 1 p.o. daily 5. Nitroglycerin 0.4 Mg Tablet, Sublingual, Take as Directed 6. Viagra 50 mg Tablet, Take as Directed CHIEF COMPLAINTS Annual HISTORY OF PRESENT ILLNESS I had the opportunity to see Mr. Zahra Escobar in Cardiology Clinic today for reevaluation of coronary artery disease. As you may recall, Mr. Escobar had an inferior wall infarction back in 1999, followed by bypass surgery. Fortunately, since then he has been doing very well. He has not had any recurrent angina symptoms. He had a stress echocardiogram done this year on 07/24/11 which demonstrated excellent exercise tolerance, no chest pain, no EKG changes, and no evidence of ischemia. There was evidence of a small inferior and inferoseptal infarction, but his left ventricular function remainedpreserved. His ejection fraction was 55-60. He has not been experiencing any other concerning symptoms. He denies chest pain, shortness of breath, lightheadedness, and palpitations. He does have some chronic aching muscle discomfort in his low back and it seems to improve if he holds his statin drug for a few days. He was previously on simvastatin 80 mg q.d. and he has most recently been on Crestor 40 mg q.d. His cholesterol numbers have been acceptable, although he was recently diagnosed with diabetes which may suggest a more aggressive LDL goal of less than 70. We stopped Niaspan last year due to some flushing symptoms and his HDL actually went up a little bit. On exam today his blood pressure is 118/68, heart rate 64, and weight 193 pounds. His lungs are clear. His heart rhythm is regular. He has no cardiac murmurs or carotid bruits. PAST HISTORY Past Medical Illnesses: hyperlipidemia, hypertension-benign Past Cardiac Illnesses: angina, S/P myocardial infarction-lateral Infectious History: mumps Surgeries/Procedures - General: +mid LAD , CABG with MORALES to LAD and saphenous vein grafts to OM 1 PDA, knee surgery Cardiology Procedures-NonInvasive: echocardiogram , myocardial perfusion (Nuc) 05/15, 05/17, 05/18, stress echo 06/18, 07/20 PMHx Stress Echo Results: 04/18/02=Abnl with EF of 49%, 06/18 basal inferior akinesis, abnormal wall motion from old infaction, no new stress induced abnormalities, 07/20 no change Left Ventricular Ejection Fraction: 50%via echo , EF<GT>50% by nuclear study -April 2005, EF 40-50%, by nuc 05/15, 05/18 EF 54% post stress, EF 61% rest by NUC, EF 50-55% by Echo -June 2010, EF<GT>55% -Jul 2011 Nuclear Results: 05/17 no sig change from 2007, 05/18 2 defects. 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 ENDOCRINE weight gain HEMATOLOGICAL/IMMUNOLOGIC denies any food allergies, seasonal allergies, bleeding disorders or lymphadenopathy. PHYSICAL EXAMINATION VITAL SIGNS: Blood Pressure: 118/68Sitting, Left arm, large cuff Pulse- 64.00/min. Weight- 193.00 lbs. Height- 69 BMI Measurement: 28 CONSTITUTIONAL cooperative, alert and oriented,well developed, well [...] time, person and place. MEDICATIONS UPDATED/STARTED TODAY: Crestor 20 mg Tablet, 1 p.o. daily, #90 (Ninety) MEDICATIONS REFILLED/STOPPED TODAY: Crestor 40 mg Tablet 1 p.o. daily #0 (Zero) Refill, Crestor 40 mg Tablet 1 p.o. daily #90 (Ninety) Refill and Simvastatin 80 Mg Tablet 1 p.o. daily #0 Physician Order IMPRESSION: Mr. Zahra Escobar is a 56-year-old gentleman with hypertension, dyslipidemia, and recently diagnosed diet-controlled diabetes. He has a history of inferior infarction and bypass surgery. His stress test this year is normal and he is not having any concerning cardiac symptoms. I suggested we could try decreasing his dose of Crestor to 20 mg q.d. and see if that helps his muscle pains in his low back. I would have him follow up with you for a blood test in six or eight weeks. At this point the goal LDL should be at least less than 100, and ideally less than 70. If he has improvement in his muscle pains but his cholesterol numbers are too high, I might consider adding something like Zetia to help keep the numbers down. I will plan to see him back again in one year. TODAYS ORDERS 1. F/U with Scott Hair MD 1 year 2. Treadmill Stress Echo 1 year, OFF MEDS, Scott Hari M.D. documented in this encounter Plan of Treatment Upcoming Encounters Date Type Department Care Team (Late st Contact Info) Description 11/03/2023 7:45 AM CDT Office Visit [facility] [address] [facility] [address] [place] [address] Scott Hair MD [address] [facility] [address] [place], [place] [address] documented as of this encounter Visit Diagnoses Not on filedocumented in this encounter Care Teams Shower Attendant Relationship Specialty Start Date End Date Gabo Poole MD PCP - General Internal Medicine 07/23/09 10/25/17 Zacarias Flores [address] [place] [address] PCP - General Family Practice 10/26/17 Gabo Poole MD [facility] [facility] [place] [address] PCP - Assigned PCP 03/23/16 04/12/18 Gabo Poole MD [address] [facility] [place] [address] Assigned PCP 03/23/16 12/24/18 Scott Hair MD [address] [place] [address] Assigned Heart and Vascular Provider 12/01/19 05/18/20 Scott Hair MD [address] [place] [address] Assigned Heart and Vascular Provider 12/15/20 06/05/22 Ana Maria Tinsley APRN MILLSTONE CLEANER [address] [place] [id number] Nurse Practitioner Cardiovascular Disease 11/26/21 Ana Maria Tinsley APRN MILLSTONE CLEANER [address] [place] [address] Assigned Heart and Vascular Provider 06/06/22 07/24/22 Scott Hair MD [address] [place] [address] MD Cardiovascular Disease 07/09/22 Scott Hari MD [address] [place] [address] Assigned Heart and Vascular Provider 07/25/22 documented as of this encounter
--- OUTSIDE RECORDS SUMMARY | 2023-09-08 13:28 | XMS_ITS | Encounter Summary ---
Author Organization [place] Address [address] [place] [address] Care Team Providers Care Peach Grower Name Role Phone Francisco Kumar MD Primary Care Provider [phone] Zacarias Flores Primary Care Provider [phone] Francisco Kumar MD Unavailable [phone] Francisco Kumar MD Unavailable [phone] Scott Hair MD Unavailable Scott Hair MD Unavailable Ana Maria Tinsley APRN WOODS BOSS Unavailable [phone] Ana Maria Tinsley APRN WOODS BOSS Unavailable Scott Hair MD Unavailable Scott Hair MD Unavailable Encounter Details Date Type Department Care Team (Late st Contact Info) Description 09/27/2013 [facility] Medical Advice [facility] Heart Clinic [address] [place] [address] Logan Augustin RN Social History Tobacco Use Types Packs/Day Years Used Date Smoking Tobacco: Former Cigarettes 2 30 0 07/13/1968 - 07/13/1998 Smokeless Tobacco: Never Alcohol Use Standard Drinks/Week Comments Yes 0 (1 standard drink = 0.6 oz pur e alcohol) Sex and Gender Information Value Date Recorded Sex Assigned at Male 09/20/2021 10:43 AM CDT Gender Identity Male 09/20/2021 10:43 AM CDT Sexual Orientation Not on file documented as of this encounter Plan of Treatment Upcoming Encounters Date Type Department Care Team (Late st Contact Info) Description 11/03/2023 7:45 AM CDT Office Visit [facility] [place] [address] [place] [phone] Scott Hair MD [address] [place] [address] documented as of this encounter Visit Diagnoses Not on filedocumented in this encounter Care Teams Peach Grower Relationship Specialty Start Date End Date Francisco Kumar MD PCP - General Internal Medicine 07/23/09 10/25/17 Zacarias Flores [address] [facility] 20 [place] [address] PCP - General Family Practice 10/26/17 Francisco Kumar MD [address] [facility] [place] [address] PCP - Assigned PCP 03/23/16 04/12/18 Francisco Kumar MD [address] [place] [address] [place] [address] Assigned PCP 03/23/16 12/24/18 Scott Hair MD [address] [place] [address] Assigned Heart and Vascular Provider 12/01/19 05/18/20 Scott Hair MD [address] [place] [address] Assigned Heart and Vascular Provider 12/15/20 06/05/22 Ana Maria Tinsley APRN WOODS BOSS [address] [place] [id number] Nurse Practitioner Cardiovascular Disease 11/26/21 Ana Maria Tinsley APRN WOODS BOSS [address] [place] [address] Assigned Heart and Vascular Provider 06/06/22 07/24/22 Scott Hair MD [address] [place] [id number] MD Cardiovascular Disease 07/09/22 Scott Hair MD [address] [place] [address] Assigned Heart and Vascular Provider 07/25/22 documented as of this encounter
--- OUTSIDE RECORDS SUMMARY | 2023-09-08 13:28 | XMS_ITS | Encounter Summary ---
Author Organization [place] Address [address] [place] [address]. [place] [address] Care Team Providers Care Hydraulic Press Operator Name Role Phone YaimasammyZacarias ndiaye Primary Care Provider [phone] Ana Maria Tinsley APRN RESAWYER Unavailable [phone] Scott Hair MD Unavailable [phone] Scott Hair MD Unavailable [phone] Encounter Details Date Type Department Care Team (Latest Contact Info) Description 07/20/2023 Travel Social History Tobacco Use Types Packs/Day Years [...] Description 11/03/2023 7:45 AM CDT Office Visit [facility] [place] [address] [facility] [address] [place] [phone] Scott Hair MD [address] [facility] [address] [place], [place] [id number] documented as of this encounter Visit Diagnoses Not on filedocumented in this encounter Care Teams Hydraulic Press Operator Relationship Specialty Start Date End Date Zacarias Flores [address] [place] [address] PCP - General Family Practice 10/26/17 Ana Maria Tinsley APRN CNP [address] [place] [address] Nurse Practitioner Cardiovascular Disease 11/26/21 Scott Hair MD [address] [place] [address] Cardiovascular Disease 07/09/22 Scott Hair MD [address] [place] [address] Assigned Heart and Vascular Provider 07/25/22 documented as of this encounter
--- OUTSIDE RECORDS SUMMARY | 2023-09-08 13:28 | XMS_ITS | Encounter Summary ---
Author Organization [facility] Address [address] [place] [address] Care Team Providers Care Melter Supervisor Oxygen Furnace Name Role Phone Francisco Kumar MD Primary Care Provider [phone] Zacarias Flores Primary Care Provider Francisco Kumar MD Unavailable [phone] Francisco Kumar MD Unavailable [phone] Scott Hair MD Unavailable Scott Hair MD Unavailable Ana Maria Tinsley APRN ELECTRICAL MAINTENANCE TECHNICIAN Unavailable Ana Maria Tinsley APRN ELECTRICAL MAINTENANCE TECHNICIAN Unavailable Scott Hair MD Unavailable Scott Hair MD Unavailable Encounter Details Date Type Department Care Team (Late st Contact Info) Description 04/14/2011 [facility] Medical Advice [address] [address] Michaelle [place] Social History Tobacco Use Types Packs/Day Years [...] Description 11/03/2023 7:45 AM CDT Office Visit [facility] Heart [facility] [place] [address] [place] [phone] Scott Hair MD [address] [place] [address] documented as of this encounter Visit Diagnoses Not on filedocumented in this encounter Care Teams Melter Supervisor Oxygen Furnace Relationship Specialty Start Date End Date Francisco Kumar MD PCP - General Internal Medicine 07/23/09 10/25/17 Zacarias Flores [address] [facility] 20 [place] [address] PCP - General Family Practice 10/26/17 [place] [address] [place] [address] [place] [address] PCP - Assigned PCP 03/23/16 04/12/18 Francisco Kumar MD [address] [place] [address] [place] [address] Assigned PCP 03/23/16 12/24/18 Scott Hair MD [address] [place] [address] Assigned Heart and Vascular Provider 12/01/19 05/18/20 Scott Hair MD [address] [place] [address] Assigned Heart and Vascular Provider 12/15/20 06/05/22 Ana Maria Tinsley APRN ELECTRICAL MAINTENANCE TECHNICIAN [address] [place] [address] Nurse Practitioner Cardiovascular Disease 11/26/21 Ana Maria Tinsley APRN ELECTRICAL MAINTENANCE TECHNICIAN [address] [place] [address] Assigned Heart and Vascular Provider 06/06/22 07/24/22 Scott Hair MD [address] [place] [address] MD Cardiovascular Disease 07/09/22 Scott Hair MD [address] [place] [address] Assigned Heart and Vascular Provider 07/25/22 documented as of this encounter
--- OUTSIDE RECORDS SUMMARY | 2023-09-08 13:28 | XMS_ITS | Encounter Summary ---
Author Organization [place] Address [address] [place] [address]. [place] [address] Care Team Providers Care Hotel Assistant Manager Name Role Phone Gabo Poole MD Primary Care Provider [phone] Zacarias Flores Primary Care Provider [phone] Gabo Poole MD Unavailable [phone] Gabo Poole MD Unavailable [phone] Scott Hair MD Unavailable [phone] Scott Hair MD Unavailable Ana Maria Tinsley APRN IT SOLUTIONS SALES CONSULTANT Unavailable [phone] Ana Maira Tinsley APRN IT SOLUTIONS SALES CONSULTANT Unavailable Scott Hair MD Unavailable Scott Hair MD Unavailable Encounter Details Date Type Department Care Team (Late st Contact Info) Description 08/12/2012 Office Visit-[facility] [place] [address] [facility] [address] [place] [address] Scott Hair MD [address] [facility] [address] [place], [place] [address] Social History Tobacco Use Types Packs/Day Years [...] Progress Notes * Scott Hair MD - 08/15/2012 1:56 PM CDT Progress Note Created by: Scott Hair M.D. DATE: 08/12/2012 ZAHRA ESCOBAR DATE OF : 1955 AGE: [age] years old Referring Physician: GABO POOLE Referring Clinic: [facility] CURRENT DIAGNOSES 1. - CAD, 414.00 2. - Hypercholesterolemia, 272.0 3. CA-S/P Lateral, 412 4. 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 ASCVD, 429.2 ALLERGIES NKA MEDICATIONS (prior to changes made today) 1. Aspirin 81 Mg Tablet, 1 p.o. daily 2. Atenolol 25 Mg Tablet, 1 p.o. daily HS 3. fenofibrate 160 mg tablet, 1 p.o. daily 4. Lisinopril 20 Mg Tablet, 1 p.o. daily 5. Viagra 50 mg Tablet, Take as Directed 6. Crestor 20 mg Tablet, 1 p.o. daily 7. Nitroglycerin 0.4 Mg Tablet, Sublingual, Take as Directed CHIEF COMPLAINTS follow up stress echo HISTORY OF PRESENT ILLNESS I had the opportunity to see Mr. Zahra Escobar in cardiology clinic today for reevaluation of coronary artery disease and multiple cardiac risk factors. Mr. Escobar had a myocardial infarction back [id number] and underwent bypass surgery at that time. That was an inferior infarction and he continues tohave normal left ventricular systolic function following that event. He has not had any recurrent chest discomfort since then. He has multiple cardiac risk factors including diet-controlled diabetes mellitus, hypertension, dyslipidemia, a family history of heart disease, and a history of smoking, which he quit in 1998. His father had a heart attack at age 42 and at age 57, which is certainlyon Mr. Escobar's mind. Fortunately, he continues to do well without any concerning cardiac symptoms. He has no chest pain,pressure, tightness, shortness of breath, lightheadedness, palpitations, or syncope. He recently underwent a stress echocardiogram on 07/22/2012, which was found to be negative for ischemia, with someevidence of a prior infarction, which is basically the same as his previous stress test. On examination today his blood pressure is 126/76, heart rate 62, and weight 197 pounds. His lungs are clear. Heart rhythm [...] (Nuc) 05/15, 05/17, 05/18, stress echo 06/18, 07/20, 07/21 PMHx Stress Echo Results: 04/18/02=Abnl with EF of 49%, 06/18 basal inferior akinesis, abnormal wall motion from old infaction, no new stress induced abnormalities, 07/20 no change, 07/21 Resting mild anterolateral-lateral hypokinesis suggestive of past nontransmural infarction without significant stephani-infarct ischemia post-stress. Left Ventricular Ejection Fraction: 50%via echo , EF<GT>50% by nuclear study -April 2005, EF 40-50%, by nuc 05/15, 05/18 EF 54% post stress, EF 61% rest by NUC, EF 50-55% by Echo -June 2010, EF<GT>55% -Jul 2011., , EF<GT>55%, 07/21 EF 55-60% Nuclear Results: 05/17 no sig change from 2007, 05/18 2 defects. 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 GENITOURINARY-MALE denies dysuria MUSCULOSKELETAL joint stiffness, sees chiropractor NEUROLOGICAL denies any history of recurrent headaches, strokes, TIA, or seizure disorder. PSYCHIATRIC denies any history of depression, substance abuse or change in cognitive functions. ENDOCRINE denies any history of thyroid disease or diabetes mellitus. HEMATOLOGICAL/IMMUNOLOGIC denies any food allergies, seasonal allergies, bleeding disorders or lymphadenopathy. PHYSICAL EXAMINATION VITAL SIGNS: Blood Pressure: 126/76Sitting, Left arm, large cuff Pulse- 62.00/min. Weight- 197.00 lbs. Height- 69.00 BMI Measurement: 29 CONSTITUTIONAL cooperative, alert and oriented,well developed, well [...] time, person and place. MEDICATIONS UPDATED/STARTED TODAY: fenofibrate 160 mg tablet, 1 p.o. daily, #90 (Ninety) IMPRESSION: Mr. Zahra Escobar is a 57-year-old gentleman with hypertension, dyslipidemia, type 2 diabetes, and a history of smoking, and family history of heart disease. He has had a previous inferior infarction and bypass surgery 13 years ago. Obviously, he is a high risk individual. His latest cholesterol numbers from April 19, 2012 demonstrate an HDL of 41, LDL 92, and triglycerides 168. These are probably not optimal for his degree of risk factors, but he has been intolerant to higher doses of simvastatin and Crestor due to muscle aching pains. I am not impressed with the lack of data for Zetia in reducing vascular events. Instead, I think maybe we should try adding some fenofibrate to his program first and see if that will help bring down the triglycerides, increase the HDL and lower the LDL. A little bit of benefit in each of these areas would likely help his overall risk. I will have him recheck his cholesterol numbers in three months and adjust his medication accordingly. Otherwise, I will plan to see him back again in a year's time, with a stress test again before my visit. TODAYS ORDERS 1. F/U with Scott Hair MD 1 year 2. Treadmill Stress Echo 1 year, OFF MEDS, 3. Lipid profile/ALT 3 months Scott Hair M.D. documented in this encounter Plan of Treatment Upcoming Encounters Date Type Department Care Team (Late st Contact Info) Description 11/03/2023 7:45 AM CDT Office Visit [facility] Heart [place] [address] [facility] [address] [place] [address] Scott Hair MD [address] [facility] [address] [place] [address] documented as of this encounter Visit Diagnoses Not on filedocumented in this encounter Care Teams Hotel Assistant Manager Relationship Specialty Start Date End Date Gabo Poole MD PCP - General Internal Medicine 07/23/09 10/25/17 Zacarias Flores [address] [place] [address] PCP - General Family Practice 10/26/17 Gabo Poole MD [facility] [place] [address] PCP - Assigned PCP 03/23/16 04/12/18 Gabo Poole MD [facility] [place] [address] Assigned PCP 03/23/16 12/24/18 Scott Hair MD [address] [place], [place] [address] Assigned Heart and Vascular Provider 12/01/19 05/18/20 Scott Hair MD [address] [place] [address] Assigned Heart and Vascular Provider 12/15/20 06/05/22 Ana Maria Tinsley APRN IT SOLUTIONS SALES CONSULTANT [address] [place] [address] Nurse Practitioner Cardiovascular Disease 11/26/21 Ana Maria Tinsley APRN IT SOLUTIONS SALES CONSULTANT [address] [place] [address] Assigned Heart and Vascular Provider 06/06/22 07/24/22 Scott Hair MD [address] [place] [address] Cardiovascular Disease 07/09/22 Scott Hair MD [address] [place] [address] Assigned Heart and Vascular Provider 07/25/22 documented as of this encounter
--- OUTSIDE RECORDS SUMMARY | 2023-09-08 13:28 | XMS_ITS | Encounter Summary ---
Author Organization [facility] er Address [address] [place] [address] Care Team Providers Care Chauffeur [employer] Limousine Name Role Phone Morales Andrade MD Primary Care Provider [phone] Encounter Details Date Type Department Care Team (Late st Contact Info) Description 08/04/2023 Orders Only [facility] Family Medicine 4th Floor [address] [place] [address] Morales Andrade MD [address] [place] [address] Social History Tobacco Use Types Packs/Day Years [...] week 08/24/2022 How often do you attend chur or uatsdin services? 1 to 4 times per year 08/24/2022 Do you belong to any clubs o r organizations such as gnosticist groups, unions, fraternal or athletic groups, or [...] Date Recorded PHQ-9 Total Score 2 08/24/2022 [facility] - Occupational Stress [...] on filedocumented in this encounter Care Teams [employer] Limousine Relationship Specialty Start Date End Date Morales Andrade MD [address] [place] [address] PCP - General 11/26/22 documented as of this encounter
--- OUTSIDE RECORDS SUMMARY | 2023-09-08 13:28 | XMS_ITS | Encounter Summary ---
Author Organization [place] Address [address] [place] [id number] Care Team Providers Care Woven Label Designer Name Role Phone Maxine Casas MD Primary Care Provider Unavailable Francisco Kumar MD Primary Care Provider Zacarias Flores Primary Care Provider Francisco Kumar MD Unavailable [phone] Francisco Kumar MD Unavailable [phone] Scott Hair MD Unavailable Scott Hair MD Unavailable Ana Maria Tinsley APRN TOP PRECIPITATOR OPERATOR HELPER Unavailable Ana Maria Tinsley APRN TOP PRECIPITATOR OPERATOR HELPER Unavailable Scott Hair MD Unavailable Scott Hair MD Unavailable [phone] Encounter Details Date Type Department Care Team ([facility] Contact Info) Description 03/10/2007 MyC Medical Advice Initial Department Harjinder Braswell Social History Tobacco Use Types Packs/Day Years [...] Upcoming Encounters Date Type Department Care Team ([facility] Contact Info) Description 11/03/2023 7:45 AM CDT Office Visit [facility] [place] [address] [place] [phone] Scott Hair MD [address] [place] [address] documented as of this encounter Visit Diagnoses Not on filedocumented in this encounter Care Teams Woven Label Designer Relationship Specialty Start Date End Date Yessenia, Maxine Wiggins MD PCP - General 03/24/02 07/22/09 Francisco Kumar MD PCP - General Internal Medicine 07/23/09 10/25/17 Zacarias Flores [address] [facility] [address] [place] [address] PCP - General Family Practice 10/26/17 Francisco Kumar MD [address] [place] [address] [place] [address] PCP - Assigned PCP 03/23/16 04/12/18 Francisco Kumar MD [address] [place] [address] [place] [address] Assigned PCP 03/23/16 12/24/18 Scott Hair MD [address] [place] [id number] Assigned Heart and Vascular Provider 12/01/19 05/18/20 Scott Hair MD [address] [place] [id number] Assigned Heart and Vascular Provider 12/15/20 06/05/22 Ana Maria Tinsley APRN TOP PRECIPITATOR OPERATOR HELPER [address] [place] [address] [id number] Nurse Practitioner Cardiovascular Disease 11/26/21 Ana Maria Tinsley APRN TOP PRECIPITATOR OPERATOR HELPER [address] [place] [id number] Assigned Heart and Vascular Provider 06/06/22 07/24/22 Scott Hair MD [address] [place] [id number] MD Cardiovascular Disease 07/09/22 Scott Hair MD [address] [place] [id number] Assigned Heart and Vascular Provider 07/25/22 documented as of this encounter
--- OUTSIDE RECORDS SUMMARY | 2023-09-08 13:28 | XMS_ITS | Encounter Summary ---
Author Organization [place] Address [address] [place] [address]. [place] [address] Care Team Providers Care Coater Associate Name Role Phone Evangelina Patten MD Primary Care Provider Unavailable Francisco Kumar MD Primary Care Provider Zacarias Flores Primary Care Provider Francisco Kumar MD Unavailable [phone] Francisco Kumar MD Unavailable [phone] Scott Hair MD Unavailable [phone] Scott Hair MD Unavailable [phone] Ana Maria Tinsley APRN TILE MACHINE OPERATOR Unavailable [phone] Ana Maria Tinsley APRN TILE MACHINE OPERATOR Unavailable [phone] Scott Hair MD Unavailable [phone] Scott Hair MD Unavailable [phone] Encounter Details Date Type Department Care Team (Late st Contact Info) Description 06/14/2008 Office Visit-[facility] [place] [address] [facility] [address] [place] [address] Scott Hair MD [address] [facility] [address] [place] [id number] Social History Tobacco Use Types Packs/Day Years [...] Progress Notes * Scott Hair MD - 06/18/2008 9:40 AM CDT Progress Note Created by: Scott Hair M.D. DATE: 06/14/2008 ZAHRA ESCOBAR DATE OF : 1955 AGE: [age] years old Referring Physician: EVANGELINA PATTEN CURRENT DIAGNOSES 1. NM-S/P Lateral, 412 2. - Hypercholesterolemia, 272.0 3. - CABG, V45.81 4. - CAD, 414.00 ALLERGIES NKA MEDICATIONS (prior to changes made today) 1. Atenolol 25 Mg, 1 p.o. qHS 2. Lisinopril 20 Mg, 1 p.o. q.d. 3. Niacin 500 mg, 1 p.o. q.d. 4. Aspirin 81 mg, 1 p.o. q.d. 5. Nitroglycerin 0.4 mg, Take as Directed 6. Viagra 50 Mg, Take as Directed 7. Simvastatin 80 mg, 1 p.o. q.d. CHIEF COMPLAINTS f/u visit HISTORY OF PRESENT ILLNESS I had the opportunity to see Mr. Zahra Escobar in cardiology clinic today for reevaluation of coronary artery disease. As you may recall, Mr. Escobar had bypass surgery back in 1999 after an inferior wall myocardial infarction. He had quit smoking a year prior to his bypass surgery. We have been continuing to treat him for cardiac risk factors, including hypertension and dyslipidemia. He apparently has some signs of early diabetes. He also has a strong family history of heart disease. He has continued to do well, without any concerning cardiac symptoms. He has no chest pain, shortness of breath, palpitations, or syncope. He recently completed an exercise Cardiolite stress test, during which he was able to exercise for 11 minutes and 30 seconds on the Luiz protocol without chestpain. He had stable stress test findings, with evidence of a fairly small inferior and inferolateral myocardial infarction and a small area of apical ischemia. These findings are basically unchanged since his bypass surgery. He had a stress test in 2000 after his bypass, which showed similar findings. On examination today, his blood pressure is 110/70. Heart rate 64. Weight 185 pounds. His lungs areclear. Heart rhythm is regular. He has no cardiac murmurs. No carotid bruits. No edema. PAST HISTORY Past Medical Illnesses: hyperlipidemia, hypertension-benign Past Cardiac Illnesses: angina, S/P myocardial infarction-lateral Infectious History: mumps Surgeries/Procedures - General: +mid LAD , CABG with MORALES to LAD and saphenous vein grafts to OM 1 PDA, knee surgery Cardiology Procedures-Noninvasive: echocardiogram December 1999, myocardial perfusion imaging (Nuclear) May 2006, myocardial perfusion (Nuc) May 2008 PMHx Stress Echo Results: 04/18/02=Abnl with EF of 49% Left Ventricular Ejection Fraction: 50%via echo , EF50% by nuclear study -April 2005, EF 40-50%, by nuc 05/15 Nuclear Results: 05/17 no sig change from 2007 FAMILY HISTORY: Family - Uncles with NM's+ [...] Seat Belt Use - always; 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 PHYSICAL EXAMINATION VITAL SIGNS: Blood Pressure: 110/70 Sitting, Left arm, large cuff Pulse- 64.00/min. Weight- 184.60 lbs. Height- 69.00 Temperature- .00 CONSTITUTIONAL cooperative, [...] time, person and place. MEDICATIONS UPDATED/STARTED TODAY: IMPRESSION: Mr. Zahra Escobar is a 52-year-old gentleman with hypertension, dyslipidemia, early diabetes, and a history of smoking. His risk factors are well controlled at this point and he has no concerning cardiac symptoms. His stress test looks stable with a small inferior infarction and a small area of apical ischemia, with normal left ventricular systolic function. His ejection fraction was 57%. I will plan to see Mr. Escobar again next year at this time. I reassured him that he is doing well and I will not change his medications. TODAYS ORDERS 1. F/U with Scott Hair MD 1 year 2. Treadmill Nuclear Study 1 year Scott Hair M.D. documented in this encounter Plan of Treatment Upcoming Encounters Date Type Department Care Team (Late st Contact Info) Description 11/03/2023 7:45 AM CDT Office Visit [facility] [address] [facility] [address] [place] [phone] Scott Hair MD [address] [place] [address] [address] [place] [id number] documented as of this encounter Visit Diagnoses Not on filedocumented in this encounter Care Teams Coater Associate Relationship Specialty Start Date End Date Evangelina Patten MD PCP - General 03/24/02 07/22/09 Francisco Kumar MD PCP - General Internal Medicine 07/23/09 10/25/17 Sandra Zacarias [address] [place] [address] PCP - General Family Practice 10/26/17 Francisco Kumar MD [address] [place] [address] [place] [id number] PCP - Assigned PCP 03/23/16 04/12/18 Francisco Kumar MD [address] [place] [address] [place] [id number] Assigned PCP 03/23/16 12/24/18 Scott Hair MD [address] [place] [id number] Assigned Heart and Vascular Provider 12/01/19 05/18/20 Scott Hair MD [address] [place] [address] Assigned Heart and Vascular Provider 12/15/20 06/05/22 Ana Maria Tinsley APRN TILE MACHINE OPERATOR [address] [place] [id number] Nurse Practitioner Cardiovascular Disease 11/26/21 Ana Maria Tinsley APRN TILE MACHINE OPERATOR [address] [place] [address] Assigned Heart and Vascular Provider 06/06/22 07/24/22 Scott Hair MD [address] [place] [address] Cardiovascular Disease 07/09/22 Scott Hair MD [address] [place] [address] Assigned Heart and Vascular Provider 07/25/22 documented as of this encounter
--- OUTSIDE RECORDS SUMMARY | 2023-09-08 13:29 | XMS_ITS | Encounter Summary ---
Author Organization [facility] Address [address] [place] [address]. [place] [address] Care Team Providers Care Clothes Shaker Name Role Phone Maxine Casas MD Primary Care Provider Unavailable Francisco Kumar MD Primary Care Provider Zacarias Flores Primary Care Provider Francisco Kumar MD Unavailable [phone] Francisco Kumar MD Unavailable [phone] Scott Hair MD Unavailable cSott Hair MD Unavailable [phone] Ana Maria Tinsley APRN CHILD AND FAMILY THERAPIST Unavailable [phone] Ana Maria Tinsley APRN CHILD AND FAMILY THERAPIST Unavailable [phone] Scott Hair MD Unavailable [phone] Scott Hair MD Unavailable [phone] Encounter Details Date Type Department Care Team (Late st Contact Info) Description 05/26/2006 Office Visit-[facility] [place] [address] [facility] [address] [place] [phone] Scott Hair MD [address] [facility] [address] [place] [id number] Social History Tobacco Use Types Packs/Day Years [...] Progress Notes * Scott Hair MD - 05/27/2006 9:57 AM CDT Progress Note Created by: Scott Hair M.D. DATE: 05/26/2006 LEAH ZAHRA DATE OF : 1955 AGE: [age] years old Referring Physician: ZACARIAS MCCLOUD Referring Clinic: [facility] CURRENT DIAGNOSES 1. - CAD, 414.00 2. TN-S/P Lateral, 412 3. - Hypercholesterolemia, 272.0 4. - CABG, V45.81 ALLERGIES NKA MEDICATIONS (including any changes made today) 1. Atenolol 25 Mg, 1 p.o. qHS 2. Lipitor 40 Mg, 1 p.o. q.d. 3. Lisinopril 20 Mg, 1 p.o. q.d. 4. Aspirin 81 mg, 1 p.o. q.d. 5. Nitroglycerin 0.4 mg, Take as Directed 6. Niacin 500 mg, 1 p.o. q.d. 7. Viagra 50 mg, Take as Directed CHIEF COMPLAINTS Followup of - CAD and Review labs/nuc HISTORY OF PRESENT ILLNESS I had the opportunity to see Mr. Zahra Escobar in Cardiology Clinic today for reevaluation of coronary artery disease. As you may recall, Mr. Escobar is a 50-year-old gentleman with hypertension, dyslipidemia, and a history of smoking who had a heart attack back in 1999 and underwent bypass surgery on August 13, 1999. He had severe three-vessel coronary disease. Since then he has done well. We have been following him with periodic stress testing. His last stress test was on 05/18/06 and demonstrateda moderate sized area of inferolateral infarction which is stable without residual ischemia. We once again also saw a small apical area of ischemia which we have been managing medically. He has no concerning cardiac symptoms such as chest pain, shortness of breath, palpitations, lightheadedness, or edema. He seems to tolerate his medications well. His last fasting cholesterol panel on 03/23/06 showed a total cholesterol of 160, with an LDL of 98,HDL of 43, and triglycerides of 93. On examination today his blood pressure is 92/52, heart rate 52, and weight 182 pounds. His lungs are clear. His heart rhythm is regular. He has occasional extrasystoles. He has no cardiac murmurs. PAST HISTORY Past Medical Illnesses: hyperlipidemia, hypertension-benign Past Cardiac Illnesses: angina, S/P myocardial infarction-lateral Infectious Diseases: mumps Surgical Procedures: +mid LAD , CABG with MORALES to LAD and saphenous vein grafts to OM 1 PDA, knee surgery Cardiology Procedures-Noninvasive: treadmill cardiolite -abnormal December 1999, =prev.transmural lat.mi without stephani-infarct ischemia;exercise induced myocardial ischemia of a small area in distal ant.wall+apex, echocardiogram December 1999, treadmill cardiolite December 2000, treadmill cardiolite April 2002, myocardial perfusion imaging (Nuclear) April 2005, myocardial perfusion imaging (Nuclear) May 2006 Left Ventricular Ejection Fraction: 50%via echo , EF50% by nuclear study -April 2005, EF 40-50%, by nuc 05/15 PMHx Stress Echo Results: 04/18/02=Abnl with EF of 49% FAMILY HISTORY: Family - Uncles with TN's+ CABG; Father - Age 57, CAD and TN at age 46; Mother - Age 76, CABG; SOCIAL HISTORY Alcohol Use - drinks occasionally; Smoking - denies tobacco use; Diet - caffeine use-1-2 per day and low fat Diet; Lifestyle - single; Exercise - exercises regularly, treadmill, of vigorous intensity, for approximately 30 minutes, 3 days per week and 4 days per week; Seat Belt Use - always; 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 ENDOCRINE positive for hyperlipidemia, increased fatigue HEMATOLOGICAL/IMMUNOLOGIC denies any food allergies, seasonal allergies, bleeding disorders or lymphadenopathy. PHYSICAL EXAMINATION VITAL SIGNS: Blood Pressure: 92/52 Sitting, Left arm, large cuff Pulse- 52.00/min. Weight- 182.00 lbs. Height- 69.00 Temperature- .00 CONSTITUTIONAL cooperative, [...] oriented to time, person and place. MEDICATIONS UPDATED TODAY: IMPRESSION: Mr. Zahra Escobar is a 50-year-old gentleman with hypertension, dyslipidemia, and a history of smoking who had an inferolateral infarction at age 44 back in August,. He underwent four-vessel bypass surgery at that time and has done well since then. His cholesterol numbers are inching up and I suggested we could be more aggressive with his LDL by adding Zetia. He is resistant to another copay and wishes to try to get his diet and exercise back under control. I will give him six months to do that and repeat his testing at that time. If his LDL is close to or above 100 I would certainly not hesitate to add the Zetia at that time. Otherwise, he is doing very well without any concerning cardiac symptoms and I will plan to see himback again in one year. TODAYS ORDERS 1. Lipid profile/ALT 6 months 2. Lipid profile/ALT 1 year 3. Return Visit 1 year Scott Hair M.D. documented in this encounter Plan of Treatment Upcoming Encounters Date Type Department Care Team (Late st Contact Info) Description 11/03/2023 7:45 AM CDT Office Visit [address] [phone] Scott Hair MD [address] [place] [address] documented as of this encounter Visit Diagnoses Not on filedocumented in this encounter Care Teams Clothes Shaker Relationship Specialty Start Date End Date Yessenia, Maxine Wiggins MD PCP - General 03/24/02 07/22/09 Francisco Kumar MD PCP - General Internal Medicine 07/23/09 10/25/17 Zacarias Flores [address] [place] [phone] PCP - General Family Practice 10/26/17 Francisco Kumar MD [address] [place] [address] [place] [address] PCP - Assigned PCP 03/23/16 04/12/18 Francisco Kumar MD [address] [place] [address] [place] [address] Assigned PCP 03/23/16 12/24/18 Scott Hair MD [address] [place] [address] Assigned Heart and Vascular Provider 12/01/19 05/18/20 Scott Hair MD [address] [place] [address] Assigned Heart and Vascular Provider 12/15/20 06/05/22 Ana Maria Tinsley APRN CNP [address] [place] [address] [address] Nurse Practitioner Cardiovascular Disease 11/26/21 Ana Maria Tinsley APRN CHILD AND FAMILY THERAPIST [address] [place] [address]326[address] Assigned Heart and Vascular Provider 06/06/22 07/24/22 Scott Hair MD [address] [place] [address] Cardiovascular Disease 07/09/22 Scott Hair MD [address] [place] [address] Assigned Heart and Vascular Provider 07/25/22 documented as of this encounter
--- OUTSIDE RECORDS SUMMARY | 2023-09-08 13:29 | XMS_ITS | Encounter Summary ---
Author Organization [place] Address [address] [place] [address] Care Team Providers Care Pond Scaler Name Role Phone Maxine Casas MD Primary Care Provider Unavailable Francisco Kumar MD Primary Care Provider [phone] Zacarias Flores Primary Care Provider [phone] Francisco Kumar MD Unavailable Francisco Kumar MD Unavailable [phone] Scott Hair MD Unavailable Scott Hair MD Unavailable Ana Maria Tinsley APRN ENVIRONMENTAL HEALTH NURSE Unavailable Ana Maria Tinsley APRN ENVIRONMENTAL HEALTH NURSE Unavailable Scott Hair MD Unavailable Scott Hair MD Unavailable Encounter Details Date Type Department Care Team (Late st Contact Info) Description 04/25/2002 Office Visit-[facility] [address] [place] [address] Unknown, DoctorMD Social History Tobacco Use Types Packs/Day Years Used Date Smoking Tobacco: Never Assessed Sex and Gender Information Value Date Recorded Sex Assigned at Male 09/20/2021 10:43 AM CDT Gender Identity Male 09/20/2021 10:43 AM CDT Sexual Orientation Not on file documented as of this encounter Progress Notes * Unknown, MD Kena - 04/27/2002 11:20 AM CST DATE: 04/25/2002 ZAHRA ESCOBAR DATE OF : 1955 AGE: [age] years old Referring Physician: ZACARIAS MCCLOUD CURRENT DIAGNOSES 1. 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 - CAD, 414.00 3. - Hypercholesterolemia, 272.0 4. TN-S/P Lateral, 412 ALLERGIES NKA MEDICATIONS 1. Atenolol 50 Mg, 1/2 tab q.d. 2. Lipitor 40 Mg, 1 p.o. q.d. 3. Niacin 500 Mg, 1 p.o. q.d. 4. Lisinopril 20 Mg, 1 p.o. q.d. 5. Aspirin 325 mg, Take as Directed 6. Periostat 20 mg, 1 p.o. b.i.d. CHIEF COMPLAINTS discuss thallium, Fatigue, Followup of - CABG and Followup of - Hypercholesterolemia HISTORY OF PRESENT ILLNESS I had the opportunity to see Mr. Zahra Escobar in Cardiology Clinic today for reevaluation of coronary artery disease. As you may recall, Mr. Escobar was admitted with an acute myocardial infarction last April and was found to have severe three-vessel coronary artery disease, with an ejection fraction of 45%, and lateral wall hypokinesis. He underwent bypass surgery on 04/26/01 and has done very well since that time. A follow up stress test performed on 04/18/02 at [facility] shows a small area of inferolateral infarction with minimal stephani-infarct ischemia, and very mild left ventricular dysfunction. His ejection fraction was 49%. He exercised extremely well, completing 15 minutes on a Luiz protocol, and had no chest pain. Indeed, he has had no concerning recurrence of the upper chest discomfort that brought him to the hospital last year at this time. He has had no shortness of breath, lightheadedness, near-syncope, orsyncope. He does have some mild fatigue and his atenolol was cut in half to help treat this. We have been working with his cholesterol, and he has been taking niacin 500 mg per day over the counter in addition to the Lipitor to help get his HDL up a little bit. Fortunately it seems to have helped. His fasting cholesterol panel performed at your office of 03/24/02 showed a total cholesterol of 133,HDL 45, LDL 74, triglycerides 71. LFTs are normal. He has not smoked since one year prior to his heart attack, and his blood pressure has been consistently well controlled. His examination today is normal. PAST HISTORY Past Medical Illnesses: hyperlipidemia, hypertension-benign [...] treadmill cardiolite December 2000, treadmill cardiolite April 2002 Left Ventricular Ejection Fraction: 50%via echo % PMHx Stress Echo Results: 04/18/02=Abnl with EF of 49% FAMILY HISTORY: Family - Uncles with TN's+ CABG; Father - Age 57, CAD and TN at age 46; Mother - Age 76, CABG; CARDIAC RISK FACTORS Tobacco Abuse: used to smoke, but quit; Family History of Heart Disease: male<55 y/o, positive; Hyperlipidemia: positive; Hypertension: positive; Diabetes Mellitus: negative; Prior History of Heart Disease: positive; Obesity:BMI<25 (Normal); Sedentary Life Style:negative; Age:positive SOCIAL HISTORY Alcohol Use - drinks occasionally; Smoking - denies tobacco use; Diet - caffeine use-1-2 per day and low fat Diet; Lifestyle - single; Exercise - exercises regularly, treadmill, of vigorous intensity, for approximately 30 minutes, 3 days per week and 4 days per week; Seat Belt Use - always; 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 of roseacea EYES decreased acuity, wears eye glasses/contact lenses EARS, NOSE, THROAT, MOUTH denies any hearing loss, epistaxis, hoarseness or difficulty speaking. RESPIRATORY denies dyspnea, snoring, cough, wheezing or hemoptysis. ABDOMINAL denies change in bowel habits, dyspepsia, ulcer disease, hematochezia or melena. GENITOURINARY-MALE denies dysuria MUSCULOSKELETAL joint stiffness both knee(s) NEUROLOGICAL transient dizziness, orthostatic PSYCHIATRIC denies any history of depression, substance abuse or change in cognitive functions. ENDOCRINE positive for hyperlipidemia HEMATOLOGICAL/IMMUNOLOGIC denies any food allergies, seasonal allergies, bleeding disorders or lymphadenopathy. PHYSICAL EXAMINATION VITAL SIGNS: Blood Pressure: 116/82 Sitting, Right arm, regular cuff 120/84 Sitting, Left arm, regular cuff Pulse- 60.00/min. Weight- 183.00 lbs. Height- 69.00 Temperature- .00 CONSTITUTIONAL cooperative, [...] time, person and place. MEDICATIONS UPDATED TODAY: Atenolol 50 Mg, 1/2 tab q.d., #90 Lipitor 40 Mg, 1 p.o. q.d., #90 Niacin 500 Mg, 1 p.o. q.d., #90 Lisinopril 20 Mg, 1 p.o. q.d., #90 IMPRESSIONS/PLAN Mr. Zahra Escobar is a 46-year-old exsmoker with dyslipidemia who suffered a small inferolateral infarction in April of 2001, culminating in multivessel bypass surgery in 04/26/01. He has done well since that time without recurrence of chest discomfort or other concerning symptoms. His cholesterol and blood pressure are under excellent control, and he is continuing to exercise regularly. I will have him follow up with you for periodic cholesterol testing, and return to see us in a year with stress testing again at that time. TODAYS ORDERS 1. Return Visit 1 year 2. Treadmill Nuclear Study 1 year Scott Hair M.D. documented in this encounter Plan of Treatment Upcoming Encounters Date Type Department Care Team (Late st Contact Info) Description 11/03/2023 7:45 AM CDT Office Visit [facility] [place] [address] [place] [phone] Scott Hair MD [address] [place] [address] [place] [address] documented as of this encounter Visit Diagnoses Not on filedocumented in this encounter Care Teams Pond Scaler Relationship Specialty Start Date End Date Maxine Casas MD PCP - General 03/24/02 07/22/09 Francisco Kumar MD PCP - General Internal Medicine 07/23/09 10/25/17 Zacarias Flores [address] [place] [address] PCP - General Family Practice 10/26/17 [place] [address] [place] [address] [place] [address] PCP - Assigned PCP 03/23/16 04/12/18 Francisco Kumar MD [address] [place] [address] [place] [address] Assigned PCP 03/23/16 12/24/18 Scott Hair MD [address] [place] [address] Assigned Heart and Vascular Provider 12/01/19 05/18/20 Scott Hair MD [address] [place] [address] Assigned Heart and Vascular Provider 12/15/20 06/05/22 Ana Maria Tinsley APRN [facility] [address] [place] [id number] Nurse Practitioner Cardiovascular Disease 11/26/21 Ana Maria Tinsley APRN [facility] [address] [place] [id number] Assigned Heart and Vascular Provider 06/06/22 07/24/22 Scott Hair MD [address] [place] [id number] MD Cardiovascular Disease 07/09/22 Scott Hair MD [address] [place] [address]08505 Assigned Heart and Vascular Provider 07/25/22 documented as of this encounter
--- OUTSIDE RECORDS SUMMARY | 2023-09-08 13:29 | XMS_ITS | Encounter Summary ---
Author Organization [place] Address [address] [place] [address] Care Team Providers Care Wood Drilling Machine Operator Name Role Phone Maxine Casas MD Primary Care Provider Unavailable Francisco Kumar MD Primary Care Provider [phone] Zacarias Flores Primary Care Provider [phone] Francisco Kumar MD Unavailable [phone] Francisco Kumar MD Unavailable [phone] Scott Hair MD Unavailable Scott Hair MD Unavailable Ana Maria Tinsley APRN CROP DUSTER Unavailable Ana Maria Tinsley APRN CROP DUSTER Unavailable Scott Hair MD Unavailable Scott Hair MD Unavailable [phone] Encounter Details Date Type Department Care Team (Late st Contact Info) Description 05/15/2005 Office Visit-[facility] [address] [place] [address] Unknown, Doctor, Social History Tobacco Use Types Packs/Day Years [...] of this encounter Progress Notes * Unknown, Doctor, - 05/19/2005 5:52 AM CDT Progress Note Created by: Scott Hair M.D. DATE: 05/15/2005 ZAHRA ESCOBAR DATE OF : 1955 AGE: [age] years old Referring Physician: ZACARIAS MCCLOUD Referring Clinic: [facility] CURRENT DIAGNOSES 1. - Hypercholesterolemia, 272.0 2. - CABG, V45.81 3. - CAD, 414.00 4. AZ-S/P Lateral, 412 ALLERGIES NKA MEDICATIONS (including any changes made today) 1. Aspirin 81 mg, 1 p.o. q.d. 2. Nitroglycerin 0.4 mg, Take as Directed 3. Niacin 500 mg, 1 p.o. q.d. 4. Atenolol 25 mg, 1 p.o. qHS 5. Viagra 50 mg, Take as Directed 6. Lisinopril 20 Mg, 1 p.o. q.d. 7. Lipitor 40 Mg, 1 p.o. q.d. CHIEF COMPLAINTS Followup of - Hypercholesterolemia HISTORY OF PRESENT ILLNESS I had the opportunity to see Mr. Zahra Escobar in Cardiology Clinic today for reevaluation of coronary artery disease. As you may recall, Mr. Escobar suffered an acute inferolateral myocardial infarction in April,. He had bypass surgery at that time and since then has done quite well. He has a small area of infarction and normal left ventricular function. He recently had an exercise Cardiolite stress test during which he exercised very well, completing 12 minutes on a Luiz protocol. He hada stable area of inferolateral infarction, with a small area of apical ischemia suspected. He has consistently had this small area of apical ischemia the last couple of stress tests, and I suspect it is probably distal, apical LAD disease. Fortunately, he remains asymptomatic without any chest discomfort, shortness of breath, or other cardiac symptoms. He tells me he feels quite good. His cardiac risk factors include dyslipidemia and hypertension. On examination his blood pressure is 108/78, heart rate 64, and weight 182 pounds. His lungs are clear. His heart rhythm is regular. He has no cardiac murmurs. PAST HISTORY [...] April 2002, myocardial perfusion imaging (Nuclear) April 2005 Left Ventricular Ejection Fraction: 50%via echo , EF50% by nuclear study -April 2005 PMHx Stress Echo Results: 04/18/02=Abnl with EF of 49% FAMILY HISTORY: Family - Uncles with AZ's+ CABG; Father - Age 57, CAD and AZ at age 46; Mother - Age 76, CABG; SOCIAL HISTORY Alcohol Use - drinks occasionally; Smoking - denies tobacco use; Diet - caffeine use-1-2 per day and low fat Diet; Lifestyle - single; Exercise - exercises regularly, treadmill, of vigorous intensity, for approximately 30 minutes, 3 days per week and 4 days per week; Seat Belt Use - always; 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 INTEGUMENTARY denies any [...] lymphadenopathy. PHYSICAL EXAMINATION VITAL SIGNS: Blood Pressure: 108/78 Sitting, Right arm, regular cuff Pulse- 64.00/min. Weight- 182.00 lbs. Height- 69.00 Temperature- .00 [...] time, person and place. MEDICATIONS UPDATED TODAY: Niacin 500 mg, 1 p.o. q.d., DIRECTED Atenolol 25 mg, 1 p.o. qHS, DIRECTED Viagra 50 mg, Take as Directed, #14 MEDICATION STOPPED TODAY: Niaspan ER 500 mg and Toprol Xl 25 Mg IMPRESSIONS/PLAN Zahra Escobar is a 49-year-old gentleman with coronary artery disease, a history of bypass surgery and inferolateral infarction. He has a small area of apical ischemia as well which we have been managing medically, and he has been asymptomatic. I think we should continue our current medical regimen at this time and have him continue to follow up for periodic cholesterol management. If he has any concerning symptoms of coronary artery disease, we may wish to pursue this further. However, at this time I think he is doing well. He is requesting a trial of Viagra. I believe this is safe for him and have given him some samples and a prescription. I have strongly warned him not to use nitroglycerin during the same 24 hour period as Viagra at the risk of . He understands. TODAYS ORDERS 1. Return Visit 1 year 2. Treadmill Nuclear Study 1 year Scott Hair M.D. Electronically signed by [facility], [facility] Data Conversion at 06/23/2013 4:40 AM CDT documented in this encounter Plan of Treatment Upcoming Encounters Date Type Department Care Team (Late st Contact Info) Description 11/03/2023 7:45 AM CDT Office Visit [facility] [address] [place] [phone] Scott Hair MD [address] [id number] [place] [address] documented as of this encounter Visit Diagnoses Not on filedocumented in this encounter Care Teams Wood Drilling Machine Operator Relationship Specialty Start Date End Date Yessenia Maxine Wiggins MD PCP - General 03/24/02 07/22/09 Francisco Kumar MD PCP - General Internal Medicine 07/23/09 10/25/17 Zacarias Flores [address] [place] [address] PCP - General Family Practice 10/26/17 Francisco Kumar MD [address] [facility] [place] [address] PCP - Assigned PCP 03/23/16 04/12/18 [place] [address] [place] [address] [place] [address] Assigned PCP 03/23/16 12/24/18 Scott Hair MD [address] [place] [address] Assigned Heart and Vascular Provider 12/01/19 05/18/20 Scott Hair MD [address] [place] [id number] Assigned Heart and Vascular Provider 12/15/20 06/05/22 Ana Maria Tinsley APRN CROP DUSTER [address] [place] [address] Nurse Practitioner Cardiovascular Disease 11/26/21 Ana Maria Tinsley APRN CROP DUSTER [address] [place] [address] Assigned Heart and Vascular Provider 06/06/22 07/24/22 Scott Hair MD [address] [place] [id number] MD Cardiovascular Disease 07/09/22 Scott Hair MD [address] [place] [address] Assigned Heart and Vascular Provider 07/25/22 documented as of this encounter
--- OUTSIDE RECORDS SUMMARY | 2023-09-08 13:29 | XMS_ITS | Encounter Summary ---
Author Organization [place] Address [address] [place] [address] Care Team Providers Care City Surveyor Name Role Phone Maxine Casas MD Primary Care Provider Unavailable Francisco Kumar MD Primary Care Provider [phone] Zacarias Flores Primary Care Provider [phone] Francisco Kumar MD Unavailable [phone] Francisco Kumar MD Unavailable [phone] Scott Hair MD Unavailable Scott Hair MD Unavailable An aMaria Tinsley APRN SCENIC ARTS SUPERVISOR Unavailable Ana Maria Tinsley APRN SCENIC ARTS SUPERVISOR Unavailable Scott Hair MD Unavailable Scott Hair MD Unavailable Encounter Details Date Type Department Care Team (Late st Contact Info) Description 04/26/2001 Office Visit-[facility] [address] [place] [address] Unknown, DoctorMD Social History Tobacco Use Types Packs/Day Years Used Date Smoking Tobacco: Never Assessed Sex and Gender Information Value Date Recorded Sex Assigned at Male 09/20/2021 10:43 AM CDT Gender Identity Male 09/20/2021 10:43 AM CDT Sexual Orientation Not on file documented as of this encounter Progress Notes * Unknown, MD Kena - 04/28/2001 9:21 AM CST DATE: 04/26/2001 ZAHRA ESCOBAR DATE OF : 1955 AGE: [age] years old CURRENT DIAGNOSES 1. 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 - Hypercholesterolemia, 272.0 3. PA-S/P Lateral, 412 4. CAD, 414.9 5. - CAD, 414.00 ALLERGIES NKA MEDICATIONS 1. Lipitor 40 Mg, 1 p.o. q.d. 2. Aspirin 325 mg, Take as Directed 3. Atenolol 50 mg, 1 p.o. qPM 4. Zestril 10 mg, 1 p.o. q.d. 5. Periostat 20 mg, 1 p.o. b.i.d. CHIEF COMPLAINTS Fatigue and Followup of - CAD HISTORY OF PRESENT ILLNESS I had the pleasure of seeing your patient, Zahra Escobar, in Cardiology Clinic today, April 26, 2001, for follow-up of his history of myocardial infarction and coronary artery bypass grafting. As you know, on August 09, 1999, he had a lateral wall myocardial infarction with peak tropin of 106. He underwent cardiac catheterization which revealed proximal LAD stenosis, 90% distal LAD stenosis, and 90% circumflex, with 100% of right coronary artery with diffuse disease, and a posterolateral branch with 90%. His ejection fraction was mildly depressed at that time at 45%. He underwent coronary artery bypass grafting x 4 in August of 1999, with a MORALES to LAD, saphenous vein graft to the mid LAD, saphenous vein graft to the obtuse marginal, and a saphenous vein graft to the posterior descending artery. The patient has done well since surgery. His other risk factors were dyslipidemia and tobacco abuse. He no longer smokes. Today he has absolutely no cardiac complaints. He continues to exercise on his treadmill and has no cardiovascular symptoms with this. He last underwent a stress sestamibi test on December 29, 1999. This revealed prior lateral myocardial infarction. The left ventricular size was normal. There was hypokinesis associated with the area of infarction. Otherwise, the left ventricular function was normal. Ejection fraction was low normal at 51%. As you know, he has also had echocardiographic evaluation where the EF was felt to be 50-55%. The patient's only complaint is that he still has fatigue after he does things. He thinks that thisis attributed to the atenolol. He never had fatigue before he was started on atenolol. Today we discussed continuing atenolol, however decreasing the dose to 25 mg at night. With this I will increasethe dose of his Zestril to 20 mg q.d. Otherwise he has been on Lipitor 40 q.h.s. for his dyslipidemia. He reports that his LDL has been very low. However, his HDL has also been mildly depressed at approximately 35. He is on a low fat diet. I discussed with him continuing to exercise, possibly increasing the fat in his diet a little bit, also possibly adding niacin at night over the counter. I thin k if his HDL continues to remain depressed, we could certainly start Niaspan at a dose of 500 mg q.h.s. 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 INTEGUMENTARY denies any change in hair or nails, rashes, or skin lesions. EYES decreased acuity, wears eye glasses/contact lenses EARS, NOSE, THROAT, MOUTH denies any hearing loss, epistaxis, hoarseness or difficulty speaking. RESPIRATORY denies dyspnea, snoring, cough, wheezing or hemoptysis. ABDOMINAL denies change in bowel habits, dyspepsia, ulcer disease, hematochezia or melena. GENITOURINARY-MALE denies dysuria MUSCULOSKELETAL denies any history of arthritic symptoms or back problems. NEUROLOGICAL denies any history of recurrent headaches, strokes, TIA, or seizure disorder. PSYCHIATRIC denies any history of depression, substance abuse or change in cognitive functions. ENDOCRINE positive for hyperlipidemia HEMATOLOGICAL/IMMUNOLOGIC denies any food allergies, seasonal allergies, bleeding disorders or lymphadenopathy. PHYSICAL EXAMINATION VITAL SIGNS: Blood Pressure: 114/74 Sitting, Right arm, regular cuff 114/78 Sitting, Left arm, regular cuff Pulse- 54.00/min. Weight- 182.00 lbs. Height- 68.50 Temperature- .00 CONSTITUTIONAL cooperative, alert and oriented,well [...] and place. MEDICATIONS UPDATED TODAY: Atenolol 50 mg, 1 p.o. qPM, 0 Zestril 10 mg, 1 p.o. q.d., 0 Periostat 20 mg, 1 p.o. b.i.d., 0 IMPRESSIONS/PLAN This is a 45-year-old gentleman who presents for follow-up of his history of lateral myocardial infarction and coronary bypass grafting. He is currently clinically stable. He has no symptoms of angina. His stress test showed excellent exercise capacity, and the sestamibi scan showed evidence for prior myocardial infarction with no significant area of ischemia. His left ventricular function was low normal. I think he is clinically stable. The only change I have made today is to decrease his atenolol to 25 q.h.s. secondary to continuing fatigue which is probably secondary to the atenolol. With this I have increased his lisinopril up to 20 mg a day. Regarding his dyslipidemia, he is on Lipitor 40 q.h.s. right now. His LDL is much less than 100 perhis report. I do not have the most recent panel to review. I would recommend adding in Niaspan if necessary to achieve an HDL greater than 40. I also recommended to him that he could try a diet higher in fat since he does exercise quite a bit. TODAYS ORDERS 1. Return Visit 1 year 2. Treadmill Nuclear Study 1 year Referring Physician: ZACARIAS MCCLOUD M.D. documented in this encounter Plan of Treatment Upcoming Encounters Date Type Department Care Team (Late st Contact Info) Description 11/03/2023 7:45 AM CDT Office Visit [facility] [address] [facility] [address] [place] [phone] Scott Hair MD [address] [facility] [address] [place], [place] [address] documented as of this encounter Visit Diagnoses Not on filedocumented in this encounter Care Teams City Surveyor Relationship Specialty Start Date End Date Yessenia, Maxine Wiggins MD PCP - General 03/24/02 07/22/09 Francisco Kumar MD PCP - General Internal Medicine 07/23/09 10/25/17 Zacarias Flores [address] [place] [address] PCP - General Family Practice 10/26/17 [place] [address] [place] [address] [place] [address] PCP - Assigned PCP 03/23/16 04/12/18 [place] [address] [place] [address] [place] [address] Assigned PCP 03/23/16 12/24/18 Scott Hair MD [address] [place] [address] Assigned Heart and Vascular Provider 12/01/19 05/18/20 Scott Hair MD [address] [place] [address] Assigned Heart and Vascular Provider 12/15/20 06/05/22 Ana Maria Tinsley APRN SCENIC ARTS SUPERVISOR [address] [place] [address] Nurse Practitioner Cardiovascular Disease 11/26/21 Ana Maria Tinsley APRN SCENIC ARTS SUPERVISOR [address] [place] [address] Assigned Heart and Vascular Provider 06/06/22 07/24/22 Scott Hair MD [address] [place] [address] Cardiovascular Disease 07/09/22 Scott Hair MD [address] [place] [address] Assigned Heart and Vascular Provider 07/25/22 documented as of this encounter
--- OUTSIDE RECORDS SUMMARY | 2023-09-08 13:29 | XMS_ITS | Encounter Summary ---
Author Organization [facility] Address [address] [place] [address] Care Team Providers Care Hand Mixer Name Role Phone Maxine Casas MD Primary Care Provider Unavailable Francisco Kumar MD Primary Care Provider [phone] Zacarias Flores Primary Care Provider [phone] Francisco Kumar MD Unavailable Francisco Kumar MD Unavailable [phone] Scott Hair MD Unavailable Scott Hair MD Unavailable Ana Maria Tinsley APRN CENTER RECEPTIONIST Unavailable Ana Maria Tinsley APRN CENTER RECEPTIONIST Unavailable Scott Hair MD Unavailable Scott Hair MD Unavailable Encounter Details Date Type Department Care Team (Late st Contact Info) Description 03/09/[address] [address] Zacarias Arroyo MD [address] [place] [address] [id number] Social History Tobacco Use Types Packs/Day Years [...] 11/03/2023 7:45 AM CDT Office Visit [facility] [address] [place] [phone] Scott Hair MD [address] [place] [address] documented as of this encounter Visit Diagnoses Not on filedocumented in this encounter Care Teams Hand Mixer Relationship Specialty Start Date End Date Yessenia, Maxine Wiggins MD PCP - General 03/24/02 07/22/09 Francisco Kumar MD PCP - General Internal Medicine 07/23/09 10/25/17 Zacarias Flores [address] [facility] [address] [place] [address] PCP - General Family Practice 10/26/17 Francisco Kumar MD [address] [place] [address] [place] [address] PCP - Assigned PCP 03/23/16 04/12/18 Francisco Kumar MD [address] [place] [address] [place] [address] Assigned PCP 03/23/16 12/24/18 Scott Hair MD [address] [place] [address] Assigned Heart and Vascular Provider 12/01/19 05/18/20 Scott Hair MD [address] [place] [id number] Assigned Heart and Vascular Provider 12/15/20 06/05/22 Ana Maria Tinsley APRN CENTER RECEPTIONIST [address] [place] [address] [phone] Nurse Practitioner Cardiovascular Disease 11/26/21 Ana Maria Tinsley APRN CENTER RECEPTIONIST [address] [place] [address] [id number] Assigned Heart and Vascular Provider 06/06/22 07/24/22 Scott Hair MD [address] [place] [address] Cardiovascular Disease 07/09/22 Scott Hair MD [address] [place] [id number] Assigned Heart and Vascular Provider 07/25/22 documented as of this encounter
--- OUTSIDE RECORDS SUMMARY | 2023-09-08 13:29 | XMS_ITS | Encounter Summary ---
Author Organization [facility] Address [address] [place] [address] Care Team Providers Care Dairy Grazer Name Role Phone Maxine Casas MD Primary Care Provider Unavailable Francisco Kumar MD Primary Care Provider [phone] Zacarias Flores Primary Care Provider Francisco Kumar MD Unavailable [phone] Francisco Kumar MD Unavailable [phone] Scott Hair MD Unavailable Scott Hair MD Unavailable Ana Maria Tinsley APRN CAMP MANAGER Unavailable Ana Maria Tinsley APRN CAMP MANAGER Unavailable Scott Hair MD Unavailable Scott Hair MD Unavailable Encounter Details Date Type Department Care Team (Late st Contact Info) Description 04/21/2004 Office Visit-[facility] [address] [place] [address] Unknown, DoctorMD Social History Tobacco Use Types Packs/Day Years Used Date Smoking Tobacco: Never Assessed Sex and Gender Information Value Date Recorded Sex Assigned at Male 09/20/2021 10:43 AM CDT Gender Identity Male 09/20/2021 10:43 AM CDT Sexual Orientation Not on file documented as of this encounter Progress Notes * Unknown, MD Kena - 04/23/2004 12:37 PM CST Progress Note Created by: Scott Hair M.D. DATE: 04/21/2004 ZAHRA ESCOBAR DATE OF : 1955 AGE: [age] years old Referring Physician: ZACARIAS MCCLOUD Referring Clinic: [facility] CURRENT DIAGNOSES 1. - Hypercholesterolemia, 272.0 2. - CABG, V45.81 3. - CAD, 414.00 4. AR-S/P Lateral, 412 ALLERGIES NKA MEDICATIONS (including any changes made today) 1. Lipitor 40 Mg, 1 p.o. q.d. 2. Lisinopril 20 Mg, 1 p.o. q.d. 3. Aspirin 81 mg, 1 p.o. q.d. 4. Nitroglycerin 0.4 mg, Take as Directed 5. Periostat 20 mg, 1 p.o. b.i.d. 6. Niaspan ER 500 mg, 1 p.o. qHS 7. Toprol XL 25 mg, 1 p.o. qHS CHIEF COMPLAINTS Followup of - Hypercholesterolemia HISTORY OF PRESENT ILLNESS I had the opportunity to see Mr. Zahra Escobar in Cardiology Clinic today for reevaluation of his coronary artery disease. As you may recall, Mr. Escobar is a 48-year-old gentleman with history of an acute inferolateral wall infarction in April 1999. He had bypass surgery and has seemed to do quite well since that time. Stress tests have shown an area of inferolateral infarction and a small apicaldefect. This apical defect has demonstrated some reversibility on some of his stress tests. It is possible he may have a small area of ischemia in that territory. Left ventricular function remains atthe lower limits of normal with ejection fraction of 50 percent by nuclear stress testing. He is doing very well without concerning cardiac symptoms. He has no chest pain, shortness of breath or lightheadedness. He has no palpitations. He seems to be tolerating his medications reasonably well with the possible exception of atenolol. He has been on 25 mg of atenolol at night to help decrease the fatigue that he was feeling when he was taking it in the morning. He unfortunately continuesto feel fatigued and is bothered and concerned by that side effect. He is otherwise doing well. On examination, his blood pressure is 112/82, his heart rate is 68 beats per minute, and his weightis 189 pounds. His lungs are clear. His heart rhythm is regular. He has no cardiac murmurs. His fasting cholesterol panel results from 04/16 show total cholesterol of 136, triglycerides of 118,HDL of 41 and LDL of 71. His ALT is slightly above normal at 49. 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 PHYSICAL EXAMINATION VITAL SIGNS: Blood Pressure: 112/82 Sitting, Right arm, regular cuff Pulse- 68.00/min. Weight- 189.00 lbs. Height- 68.00 Temperature- .00 CONSTITUTIONAL cooperative, alert and oriented,well [...] time, person and place. MEDICATIONS UPDATED TODAY: Niaspan ER 500 mg, 1 p.o. qHS, #90 Toprol XL 25 mg, 1 p.o. qHS, #30 MEDICATION STOPPED TODAY: Atenolol 25 Mg and Niacin 500 Mg IMPRESSIONS/PLAN </B><FONT FACE=Keyliner New> Mr. Zahra Escobar is a 48-year-old male with coronary artery disease, status post-inferolateral infarction and bypass surgery in 1999. He is doing quite well at this time and does not have any concerning cardiac symptoms. He has very well controlled dyslipidemia and hypertension but is somewhat fatigued by the use of his beta-juan manuel. I have suggested thathe try switching to Toprol XL 25 mg per day, taken at night, to see if that helps. If he is still fatigued, I have suggested he cut that dose in half, and if still fatigued, perhaps he can try discontinuing that beta-juan manuel and seeing if his blood pressure remains under good control. He may not necessarily need a beta- juan manuel at this point given his normal left ventricular function. I will see him again next year with a Cardiolite stress test to be completed prior to that visit. <B><FONT FACE=System> TODAYS ORDERS 1. Return Visit 1 year 2. Treadmill Nuclear Study 1 year 3. Lipid profile/ALT 6 months 4. Lipid profile/ALT 1 year Scott Hair M.D. documented in this encounter Plan of Treatment Upcoming Encounters Date Type Department Care Team (Late st Contact Info) Description 11/03/2023 7:45 AM CDT Office Visit [facility] [place] [address] [facility] [address] [place] [phone] Scott Hair MD [address] [place] [address] documented as of this encounter Visit Diagnoses Not on filedocumented in this encounter Care Teams Dairy Grazer Relationship Specialty Start Date End Date Yessenia, Maxine Wiggins MD PCP - General 03/24/02 07/22/09 Francisco Kumar MD PCP - General Internal Medicine 07/23/09 10/25/17 Zacarias Flores [address] [address] [place] [address] PCP - General Family Practice 10/26/17 Francisco Kumar MD [address] [place] [address] [place] [address] PCP - Assigned PCP 03/23/16 04/12/18 Francisco Kumar MD [address] [place] [address] [place] [address] Assigned PCP 03/23/16 12/24/18 Scott Hair MD [address] [place] [id number] Assigned Heart and Vascular Provider 12/01/19 05/18/20 Scott Hair MD [address] [place] 687755 Assigned Heart and Vascular Provider 12/15/20 06/05/22 Ana Maria Tinsley APRN CAMP MANAGER [address] [place] [address] [id number] Nurse Practitioner Cardiovascular Disease 11/26/21 Ana Maria Tinsley APRN CAMP MANAGER [address] [place] [address] 221105 Assigned Heart and Vascular Provider 06/06/22 07/24/22 Scott Hair MD [address] [place] [id number] MD Cardiovascular Disease 07/09/22 Scott Hair MD [address] [place] 184995 Assigned Heart and Vascular Provider 07/25/22 documented as of this encounter
--- OUTSIDE RECORDS SUMMARY | 2023-09-08 13:29 | XMS_ITS | Encounter Summary ---
Author Organization [facility] Address [address] [place] [address] Care Team Providers Care Vb Net Programmer Name Role Phone Maxine Casas MD Primary Care Provider Unavailable Francisco Kumar MD Primary Care Provider [phone] Zacarias Flores Primary Care Provider Francisco Kumar MD Unavailable [phone] Francisco Kumar MD Unavailable [phone] Scott Hair MD Unavailable Scott Hair MD Unavailable Ana Maria Tinsley APRN CORPORATE EXECUTIVE CHEF Unavailable Ana Maria Tinsley APRN CORPORATE EXECUTIVE CHEF Unavailable Scott Hair MD Unavailable Scott Hair MD Unavailable Encounter Details Date Type Department Care Team (Late st Contact Info) Description 04/23/2003 Office Visit-[facility] [address] [place] [address] Unknown, DoctorMD Social History Tobacco Use Types Packs/Day Years Used Date Smoking Tobacco: Never Assessed Sex and Gender Information Value Date Recorded Sex Assigned at Male 09/20/2021 10:43 AM CDT Gender Identity Male 09/20/2021 10:43 AM CDT Sexual Orientation Not on file documented as of this encounter Progress Notes * Unknown, MD Kena - 04/25/2003 10:21 AM CST Progress Note Created by: Scott Hair M.D. DATE: 04/23/2003 ZAHRA ESCOBAR DATE OF : 1955 AGE: [age] years old Referring Physician: ZACARIAS MCCLOUD Referring Clinic: [facility] CURRENT DIAGNOSES 1. 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 - CAD, 414.00 3. - Hypercholesterolemia, 272.0 4. W[place]-S/P Lateral, 412 ALLERGIES NKA MEDICATIONS 1. Atenolol 25 mg, 1 p.o. q.d. 2. Lipitor 40 Mg, 1 p.o. q.d. 3. Lisinopril 20 Mg, 1 p.o. q.d. 4. Aspirin 81 mg, 1 p.o. q.d. 5. Nitroglycerin 0.4 mg, Take as Directed 6. Niacin 500 Mg, 1 p.o. q.d. 7. Periostat 20 mg, 1 p.o. b.i.d. CHIEF COMPLAINTS Annual HISTORY OF PRESENT ILLNESS I had the opportunity to see Mr. Zahra Tucker in Cardiology Clinic today for reevaluation of coronary artery disease and his cardiac risk factors. As you may recall, he is a 47-year-old gentleman whohad an acute inferolateral wall myocardial infarction in April,. He underwent bypass surgery and has done well since that time. Last year a stress test showed a small essentially fixed inferolateral defect with minimal stephani-infarct ischemia. He continues to exercise frequently and has no chest pain, shortness of breath, or other concerningcardiac-related symptoms. His cholesterol levels were under good control last year but he has not had those repeated since March,. His only complaint is of a little bit of fatigue which he attributes to atenolol. This has improved since he started taking his atenolol at night. On examination today his blood pressure is 120/80, heart rate 68, and weight 185 pounds. His lungs are clear. His heart [...] % FAMILY HISTORY: Family - Uncles with WV's+ CABG; Father - Age 57, CAD and W[place] at age 46; Mother - Age 76, CABG; CARDIAC RISK FACTORS Tobacco Abuse: used to smoke, but quit; Family History of Heart Disease: male<LT>55 y/o, positive; Hyperlipidemia: positive; Hypertension: positive; Diabetes Mellitus: negative; Prior History of Heart Disease: positive; Obesity:BMI<LT>25 (Normal); Sedentary Life Style:negative; Age:positive SOCIAL HISTORY Alcohol Use - drinks occasionally; Smoking - denies tobacco use; Diet - caffeine use-1-2 per day and low fat Diet; Lifestyle - single; Exercise - exercises regularly, treadmill, of vigorous intensity, for approximately 30 minutes, 3 days per week and 4 days per week; Seat Belt Use - always; 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 PHYSICAL EXAMINATION VITAL SIGNS: Blood Pressure: 120/80 Sitting, Right arm, regular cuff Pulse- 68.00/min. Weight- 185.00 lbs. Height- .00 Temperature- .00 CONSTITUTIONAL cooperative, alert and oriented,well [...] time, person and place. MEDICATIONS UPDATED TODAY: Aspirin 325 Mg, 1 p.o. q.d. Atenolol 25 mg, 1 p.o. q.d., #90 Lipitor 40 Mg, 1 p.o. q.d., #90 Lisinopril 20 Mg, 1 p.o. q.d., #90 Aspirin 81 mg, 1 p.o. q.d., DIRECTED Nitroglycerin 0.4 mg, Take as Directed, #25 IMPRESSIONS/PLAN Mr. Zahra Tucker is a 47-year-old gentleman with coronary artery disease, hypertension, and dyslipidemia who has suffered a small inferolateral infarction with mild left ventricular dysfunction. He underwent three-vessel bypass surgery in April,, and has done well since that time. I will give him a refill of his medications and ask him to return in one year with a stress test prior to that procedure. I will have him perform a fasting lipid panel within the next week or so for reevaluation of his lipid status. TODAYS ORDERS 1. Lipid profile/ALT 1 week 2. Return Visit 1 year 3. Treadmill Nuclear Study 1 year Scott Hair M.D. Electronically signed by [facility] Data Conversion at 06/23/2013 4:40 AM CDT documented in this encounter Plan of Treatment Upcoming Encounters Date Type Department Care Team (Late st Contact Info) Description 11/03/2023 7:45 AM CDT Office Visit [facility] [place] [address] [facility] [address] [place] [address] Scott Hair MD [address] [facility] [address] [place] [id number] documented as of this encounter Visit Diagnoses Not on filedocumented in this encounter Care Teams Vb Net Programmer Relationship Specialty Start Date End Date Maxine Casas MD PCP - General 03/24/02 07/22/09 Francisco Kumar MD PCP - General Internal Medicine 07/23/09 10/25/17 Zacarias Flores [address] [place] [address] PCP - General Family Practice 10/26/17 Francisco Kumar MD [address] [place] [address] [place] [address] PCP - Assigned PCP 03/23/16 04/12/18 Francisco Kumar MD [address] [place] [address] [place] [address] Assigned PCP 03/23/16 12/24/18 Scott Hair MD [address] [place] 037305 Assigned Heart and Vascular Provider 12/01/19 05/18/20 Scott Hair MD [address] [place] [id number] Assigned Heart and Vascular Provider 12/15/20 06/05/22 Ana Maria Tinsley APRN CORPORATE EXECUTIVE CHEF [address] [place] [address] 450375 Nurse Practitioner Cardiovascular Disease 11/26/21 Ana Maria Tinsley APRN CORPORATE EXECUTIVE CHEF [address] [place] 035985 Assigned Heart and Vascular Provider 06/06/22 07/24/22 Scott Hair MD [address] [place] [id number] MD Cardiovascular Disease 07/09/22 Scott Hair MD [address] [place] [id number] Assigned Heart and Vascular Provider 07/25/22 documented as of this encounter
== END 2023-09-08 07:36 | disposition home or self-care (01) ==
LOC: NFLDREF 13:26
PROVIDERS: PCP Family Medicine; Referring Provider Family Medicine; Visit Provider Family Medicine
DX: E11.9 Type 2 diabetes mellitus without complications (principal); E78.5 Hyperlipidemia, unspecified; Z12.5 Encounter for screening for malignant neoplasm of prostate; Z79.84 Long term (current) use of oral hypoglycemic drugs
CPT/HCPCS: 80053; 80061; 82043; 82570; G0103

== ENCOUNTER 2023-09-27 08:37 | Outpatient (CLI) | payer MEDICARE, SELFPAY ==
--- OUTSIDE RECORDS SUMMARY | 2023-09-27 08:39 | XMS_ITS | Referral Summary ---
Author Organization [facility] Address [address] [place] [address] Care Team Providers Care Irrigation Tax Assessor Collector Name Role Phone Zacarias Flores Primary Care Provider [phone] Ana Maria Tinsley APRN MOTORS AND GENERATORS INSPECTOR Unavailable [phone] Rosemarie Carrera MD Unavailable Rosemarie Carrera MD Unavailable [phone] Encounters Date Type Department Care Team Description 07/20/2023 Travel 07/20/2023 9:40 AM CDT - 07/20/2023 11:59 PM CDT Hospital Encounter [facility] [address] [address] Rosemarie Carrera MD Coronary artery disease involving coronary bypass graft of [place] heart without angina pectoris; PVC's (premature ventricular contractions) Discharge Disposition: Home or Self Care from Last 3 Months Allergies No known active allergies Medications Medication Sig Dispensed Refills Start Date End Date Status Blood Glucose Monitoring Suppl (ONE TOUCH ULTRA SYSTEM KIT) W/DEVICE KIT 04/15/2011 Active aspirin 81 MG tabletIndications:Cor onary artery disease involving coronary bypass graft of [place] heart without angina pectoris Take 1 tablet [...] MG SL tabletIndications:Cor onary artery disease involving [place] coronary artery of [place] heart without angina pectoris Place 1 tablet [...] artery disease involving coronary bypass graft of [place] heart without angina pectoris Take 1 tablet (50 mg) by mouth daily 90 tablet 3 07/22/2022 Active Active Problems Problem Noted Date Diagnosed Date Coronary artery disease invo lving coronary bypass graft of [place] heart without angina pectoris 11/28/2014 Overview: 08/1999 [...] >6 months,quad, PF 12/25/2015, 12/04/2014 TD,PF 7+ ([facility]) 03/23/2006 Social History Tobacco Use Types Packs/Day [...] Description 11/03/2023 7:45 AM CDT Office Visit [facility] [place] [address] [facility] [address] [place] [phone] Rosemarie Carrera MD [address] [facility] [address] [place] [id number] Procedures Procedure Name Priority Date/Time Associated Diagnosis Comments ECHO COMPLETE Routine 07/20/2023 10:15 AM CDT Coronary artery disease involving coronary bypass graft of [place] heart without angina pectoris PVC's (premature ventricular [...] AM CDT Narrative 07/20/2023 10:39 AM CDT [id number]^DEBI^ROSEMARIE^DESTINI [facility] [address] [facility] [address] [place] [address] Name: ZAHRA ESCOBAR : 1955 Study Date: 07/20/2023 09:50 AM Age: 67 yrs Gender: Male Patient Location: [facility] Reason For Study: Coronary artery disease [...] Procedure Note Rosa Love MD - 07/20/2023 [id number]^DEBI^ROSEMARIE^DESTINI [facility] [address] [place] [address] Name: ZAHRA ESCOBAR : 1955 Study Date: 07/20/2023 09:50 AM Age: 67 yrs Gender: Male Patient Location: [facility] Reason For Study: Coronary artery disease [...] MD LAB - BLOOD ORDERABL ES LABORATORY [facility] Acute Care Lab [address] floor, [address] [place] [address], [facility] [phone] CARD LABORATORY [address] [place] [address] * (ABNORMAL) Basic metabolic panel (12/03/2021 12:11 [...] creatinine equation which includes age and gender (Fur Polisher et al., NEJM, DOI: 10.1056/WKNPhk2457332) Blood STRUCTURE OF RIGHT UPPER LIMB / Unknown Venipuncture / Unknown 12/03/2021 12:11 PM CDT 12/03/2021 12:11 PM CDT Rosemarie Carrera MD LAB - BLOOD ORDERABL ES LABORATORY [facility] Lab [address] floor, [address] [place] [address], [facility] [phone] * (ABNORMAL) Hemoglobin A1c (08/21/2021 9:11 AM [...] 8:49 AM CDT) Creatinine Urine 99 mg/dL [facility] Albumin Urine mg/L <5 mg/L [facility] Albumin Urine mg/g Cr Unable to calculate due to low value 0 - 17 mg/g Cr [facility] Urine specimen (specimen) 08/21/2014 8:49 AM CDT 08/21/2014 8:50 AM CDT Francisco Kumar MD LAB - URINE ORDERA BLES [facility] [address] [place] [address], [facility] [phone] * Colonoscopy - HIM Scan (08/17/2013) Provider Outside PROCEDURES from Last 3 Months or Most Recently Relevant to Health Maintenance Care Teams Irrigation Tax Assessor Collector Relationship Specialty Start Date End Date [address]aim[address]enthilRashidl [address] [place] [address] PCP - General Family Practice 10/26/17 Ana Maria Tinsley APRN MOTORS AND GENERATORS INSPECTOR [address] [place] [address] 523175 Nurse Practitioner Cardiovascular Disease 11/26/21 Rosemarie Carrera MD [address] [place] [id number] Cardiovascular Disease 07/09/22 Rosemarie Carrera MD [address] [place] 075315 Assigned Heart and Vascular Provider 07/25/22
--- OUTSIDE RECORDS SUMMARY | 2023-09-27 08:39 | XMS_ITS | Encounter Summary ---
Author Organization [facility] Address [address] [place] [address] Care Team Providers Care Wheel Inspector Name Role Phone Zacarias Flores Primary Care Provider [phone] Scott Hair MD Unavailable Ana Maria Tinsley APRN WELDER SETTER RESISTANCE MACHINE Unavailable Ana Maria Tinsley APRN WELDER SETTER RESISTANCE MACHINE Unavailable Scott Hair MD Unavailable Scott Hair MD Unavailable Encounter Details Date Type Department Care Team (Late st Contact Info) Description 08/21/2021 External Order Results [facility] [address] [place] [address] Outside, Provider Social History Tobacco Use Types [...] Description 11/03/2023 7:45 AM CDT Office Visit [facility] [address] [place] [phone] Scott Hair MD [address] [place] [id number] documented as of this encounter Procedures Procedure [...] CDT Verified by Mari Eid on 08/25/2021. [email or web address] LAB - BLOOD ORDERABL ES Performing Organization Address [facility] Co de Phone Number BREEZE PFT NON-INTERFACED (ONBASE SCANS) * (ABNORMAL) Hemoglobin A1c (08/21/2021 9:11 AM CDT) Hemoglobin A1C (External) 7.3(H) 4.0 - 5.6 % NON-INTERFACED (ONBASE SCANS) Blood 08/21/2021 9:11 AM CDT Narrative BREEZE PFT - 08/25/2021 2:53 PM CDT Verified by Mari Eid on 08/25/2021. Zacarias Forgotten [facility] LAB - BLOOD ORDERABL ES BREEZE PFT NON-INTERFACED (ONBASE SCANS) * PSA tumor marker (08/21/2021 9:11 AM CDT) PSA (External) 0.9 0.0 - 5.1 ng/mL NON-INTERFACED (ONBASE SCANS) Blood 08/21/2021 9:11 AM CDT Narrative BREEZE PFT - 08/25/2021 2:53 PM CDT Verified by Mari Eid on 08/25/2021. Zacarias Flores LAB - BLOOD ORDERABL ES Performing Organization Address [facility] de Phone Number BREEZE PFT NON-INTERFACED (ONBASE [...] - BLOOD ORDERABL ES Performing Organization Address [facility] Phone Number BREEZE PFT NON-INTERFACED (ONBASE SCANS) * ALT (08/21/2021 9:11 AM CDT) ALT (External) 32 0 - 49 U/L NON- INTERFACED (ONBASE SCANS) Blood 08/21/2021 9:11 AM CDT Narrative BREEZE PFT - 08/25/2021 2:53 PM CDT Verified by Mari Eid on 08/25/2021. Zacarias Flores LAB - BLOOD ORDERABL ES Performing Organization Address [facility] de Phone Number BREEZE PFT NON-INTERFACED (ONBASE [...] on filedocumented in this encounter Care Teams Wheel Inspector Relationship Specialty Start Date End Date SandraRashidl [address] [place] [address] PCP - General Family Practice 10/26/17 Scott Hair MD [address] [place] [id number] Assigned Heart and Vascular Provider 12/15/20 06/05/22 Ana Maria Tinsley APRN WELDER SETTER RESISTANCE MACHINE [address] [place] [address] 280765 Nurse Practitioner Cardiovascular Disease 11/26/21 Ana Maria Tinsley APRN WELDER SETTER RESISTANCE MACHINE [address] [place] [address]64[address] Assigned Heart and Vascular Provider 06/06/22 07/24/22 Scott Hair MD [address] [place] [address] Cardiovascular Disease 07/09/22 Scott Hair MD [address] [place] [address] Assigned Heart and Vascular Provider 07/25/22 documented as of this encounter
--- OUTSIDE RECORDS SUMMARY | 2023-09-27 08:39 | XMS_ITS | Encounter Summary ---
Author Organization [facility] er Address [address] [place] [address] Care Team Providers Care Director Learning Name Role Phone Morales Andrade MD Primary Care Provider Reason for Referral * Consultation (Routine) - Authorized Specialty Diagnoses / Procedures Referred By Contac t Referred To Contact Virtual Care Diagnoses Type 2 diabetes mellitus without complications (HCC) Morales Andrade MD [address] [place] [address] [facility] Remote Monitoring [address] [place] [address] Referral ID Status Reason Start Date Expiration Date V isits Requested Visits Authorized [id number] Authorized 08/17/2023 08/17/2024 1 1 Encounter Details Date Type Department Care Team (Late st Contact Info) Description 08/17/2023 Orders Only [facility] 4th Floor [address] [place] [address] Morales Andrade MD [address] [place] [address] Type 2 diabetes mellitus without complications (HCC) [...] week 08/24/2022 How often do you attend [facility] or church services? 1 to 4 times per year 08/24/2022 Do you belong to any clubs o r organizations such as worship groups, unions, fraternal or athletic groups, or [...] Date Recorded PHQ-9 Total Score 2 08/24/2022 [facility] - Occupational Stress [...] place to sleep or slept in a group home (including now)? No 08/24/2022 Education Answer Date [...] (HCC) documented in this encounter Care Teams Director Learning Relationship Specialty Start Date End Date Morales Andrade MD [address] [place] [address] PCP - General 11/26/22 documented as of this encounter
--- OUTSIDE RECORDS SUMMARY | 2023-09-27 08:39 | XMS_ITS | Encounter Summary ---
Author Organization [facility] Address [address] [place] [address]. [place] [address] Care Team Providers Care Museum Tour Guide Name Role Phone YaimasammyZacarias ndiaye Primary Care Provider [phone] Ana Maria Tinsley APRN CERTIFIED TRAVEL COUNSELOR Unavailable [phone] Scott Hair MD Unavailable [phone] Scott Hair MD Unavailable [phone] Encounter Details Date Type Department Care [...] Description 11/03/2023 7:45 AM CDT Office Visit [facility] [place] [address] [facility] [address] [place] [phone] Scott Hair MD [address] [facility] [address] [place], [place] [address] documented as of this encounter Visit Diagnoses Not on filedocumented in this encounter Care Teams Museum Tour Guide Relationship Specialty Start Date End Date Zacarias Flores [address] [place] [address] PCP - General Family Practice 10/26/17 Ana Maria Tinsley APRN CNP [address] [place] [address] [address] Nurse Practitioner Cardiovascular Disease 11/26/21 Scott Hair MD [address] [place] [address] Cardiovascular Disease 07/09/22 Scott Hair MD [address] [place] [address] Assigned Heart and Vascular Provider 07/25/22 documented as of this encounter
--- OUTSIDE RECORDS SUMMARY | 2023-09-27 08:39 | XMS_ITS | Encounter Summary ---
Author Organization [facility] er Address [address] [place] [address] Care Team Providers Care Emt I/85 Name Role Phone Morales Andrade MD Primary Care Provider [phone] Encounter Details Date Type Department Care Team (Late st Contact Info) Description 06/30/2022 Telephone [place] [address] [place] [address] Rachell Flores MD [address] [address] Social History Tobacco Use Types Packs/Day Years [...] on filedocumented in this encounter Care Teams Emt I/85 Relationship Specialty Start Date End Date Morales Andrade MD [address] [place] [address] PCP - General 11/26/22 documented as of this encounter
--- OUTSIDE RECORDS SUMMARY | 2023-09-27 08:39 | XMS_ITS | Encounter Summary ---
Author Organization [facility] Address [address] [place] [address] Care Team Providers Care Traveling Plant Operator Name Role Phone Francisco Kumar MD Primary Care Provider [phone] Zacarias Flores Primary Care Provider Francisco Kumar MD Unavailable [phone] Francisco Kumar MD Unavailable [phone] Scott Hair MD Unavailable Scott Hair MD Unavailable Ana Maria Tinsley APRN PERSONAL FITNESS MANAGER Unavailable [phone] Ana Maria Tinsley APRN PERSONAL FITNESS MANAGER Unavailable Scott Hair MD Unavailable Scott Hair MD Unavailable Encounter Details Date Type Department Care Team (Late st Contact Info) Description 09/27/2013 [facility] Medical Advice [facility] [address] [place] [address] Logan Augustin RN Social History Tobacco Use [...] Description 11/03/2023 7:45 AM CDT Office Visit [facility] [place] [address] [place] [phone] Scott Hair MD [address] [place] [address] documented as of this encounter Visit Diagnoses Not on filedocumented in this encounter Care Teams Traveling Plant Operator Relationship Specialty Start Date End Date Francisco Kumar MD PCP - General Internal Medicine 07/23/09 10/25/17 Zacarias Flores [address] [facility] [address] [place] [address] PCP - General Family Practice 10/26/17 Francisco Kumar MD [address] [facility] [place] [address] PCP - Assigned PCP 03/23/16 04/12/18 Francisco Kumar MD [address] [place] [address] [place] [address] Assigned PCP 03/23/16 12/24/18 Scott Hair MD [address] [place] [address] Assigned Heart and Vascular Provider 12/01/19 05/18/20 Scott Hair MD [address] [place] [address] Assigned Heart and Vascular Provider 12/15/20 06/05/22 Ana Maria Tinsley APRN PERSONAL FITNESS MANAGER [address] [place] [address] [address] Nurse Practitioner Cardiovascular Disease 11/26/21 Ana Maria Tinsley APRN PERSONAL FITNESS MANAGER [address] [place] [id number] Assigned Heart and Vascular Provider 06/06/22 07/24/22 Scott Hair MD [address] [place] [id number] MD Cardiovascular Disease 07/09/22 Scott Hair MD [address] [place] [address] Assigned Heart and Vascular Provider 07/25/22 documented as of this encounter
--- OUTSIDE RECORDS SUMMARY | 2023-09-27 08:39 | XMS_ITS | Encounter Summary ---
Author Organization [facility] er Address [address] [place] [address] Care Team Providers Care Manager Home Improvement Name Role Phone Morales Andrade MD Primary Care Provider [phone] Encounter Details Date Type Department Care Team (Late st Contact Info) Description 08/04/2023 Orders Only [facility] 4th Floor [address] [place] [address] Morales Andrade MD [address] [place] [address] Social History Tobacco Use Types Packs/Day Years [...] How often do you attend chur or bahai services? 1 to 4 times per year 08/24/2022 Do you belong to any clubs o r organizations such as scientology groups, unions, fraternal or athletic groups, or [...] Date Recorded PHQ-9 Total Score 2 08/24/2022 [facility] - Occupational Stress [...] place to sleep or slept in a fdc (including now)? No 08/24/2022 Education Answer Date [...] on filedocumented in this encounter Care Teams Manager Home Improvement Relationship Specialty Start Date End Date Morales Andrade MD [address] [place] [address] PCP - General 11/26/22 documented as of this encounter
--- OUTSIDE RECORDS SUMMARY | 2023-09-27 08:39 | XMS_ITS | Clinical Summary ---
Author Organization [facility] Address [address] [place] [address] Care Team Providers Care Computer Installer Name Role Phone Zacarias Flores Primary Care Provider [phone] Ana Maria Tinsley APRN WOOD GANG SAWYER Unavailable Rosemarie Carrera MD Unavailable [phone] Rosemarie Carrrea MD Unavailable [phone] Allergies No known active allergies Medications Medication Sig Dispensed Refills Start Date End Date Status Blood Glucose Monitoring Suppl (ONE TOUCH ULTRA SYSTEM KIT) W/DEVICE KIT 04/15/2011 Active aspirin 81 MG tabletIndications:Cor onary artery disease involving coronary bypass graft of quechan heart without angina pectoris Take 1 tablet [...] MG SL tabletIndications:Cor onary artery disease involving quechan coronary artery of quechan heart without angina pectoris Place 1 tablet [...] artery disease involving coronary bypass graft of quechan heart without angina pectoris Take 1 tablet (50 mg) by mouth daily 90 tablet 3 07/22/2022 Active Active Problems Problem Noted Date Diagnosed Date Coronary artery disease invo lving coronary bypass graft of quechan heart without angina pectoris 11/28/2014 Overview: 08/1999 [...] - 07/20/2023 11:59 PM CDT Hospital Encounter [facility] [address] [place] [address] Rosemarie Carrera MD Coronary artery disease involving coronary bypass graft of quechan heart without angina pectoris; PVC's (premature ventricular [...] Description 11/03/2023 7:45 AM CDT Office Visit [facility] [address] [facility] [address] [place] [phone] Rosemarie Carrera MD [address] [facility] [address] [place] [phone] Health Maintenance Due Date Last Done Comments [...] artery disease involving coronary bypass graft of quechan heart without angina pectoris PVC's (premature ventricular [...] AM CDT Narrative 07/20/2023 10:39 AM CDT [id number]^DEBI^ROSEMARIE^DESTINI [facility]ch[facility] [address] [facility] [address] [place] [address] Name: ZAHRA ESCOBAR : 1955 Study Date: 07/20/2023 09:50 AM Age: 67 yrs Gender: Male Patient Location: [facility] Reason For Study: Coronary artery disease involving [...] Procedure Note Rosa Love MD - 07/20/2023 [id number]^DEBI^ROSEMARIE^DESTINI [facility] [address] [facility] [address] [place] [address] Name: ZAHRA ESCOBAR : 1955 Study Date: 07/20/2023 09:50 AM Age: 67 yrs Gender: Male Patient Location: [facility] Reason For Study: Coronary artery disease involving [...] * Lipid Profile (12/03/2021 12:11 PM CDT) [facility] Cholesterol 101 <200 mg/dL 12/03/2021 1:24 PM [...] MD LAB - BLOOD ORDERABL ES LABORATORY [facility] Acute Care Lab [address] 1st floor, [address] [place] [address], [facility] [phone] C[facility] LAB[facility]ATORY [address] [facility] [address] [place] [address] * (ABNORMAL) Basic metabolic panel (12/03/2021 12:11 PM CDT) [facility] Signature Sodium 137 133 - 144 mmol/L [...] and gender (Demetrio et al., NEJM, DOI: 10.1056/[id number]) Blood STRUCTURE OF RIGHT UPPER LIMB / Unknown Venipuncture / Unknown 12/03/2021 12:11 PM CDT 12/03/2021 12:11 PM CDT Rosemarie Carrera MD LAB - BLOOD ORDERABL ES [facility] Acute Care Lab [address] floor, [address] [place] [address], [facility] [phone] * (ABNORMAL) Hemoglobin A1c (08/21/2021 9:11 AM CDT) Hemoglobin A1C (External) 7.3(H) 4.0 - 5.6 % NON-INTERFACED (ONBASE SCANS) Blood 08/21/2021 9:11 AM CDT Narrative DALIAEZE PFT - 08/25/2021 2:53 PM CDT Verified by Mari Eid on 08/25/2021. Zacarias Flores LAB - BLOOD ORDERABL ES Performing Organization Address City/[facility]/ZIP Co de Phone Number DALIAEZE PFT NON-INTERFACED (ONBASE SCANS) * EYE EXAM - HIM SCAN (09/06/2014 12:00 AM CDT) 09/06/2014 Provider Outside OTHER * Microalbumin quantitative random urine (08/21/2014 8:49 AM CDT) Creatinine Urine 99 mg/dL [facility] Albumin Urine mg/L <5 mg/L [facility] Albumin Urine mg/g Cr Unable to calculate due to low value 0 - 17 mg/g Cr [facility] Urine specimen (specimen) 08/21/2014 8:49 AM CDT 08/21/2014 8:50 AM CDT Francisco Kumar MD LAB - URINE ORDERA BLES [facility] [address] [place] [address], [facility] [phone] * Colonoscopy - HIM Scan (08/17/2013) Provider Outside PROCEDURES from Last 3 Months or Most Recently Relevant to Health Maintenance Care Teams Computer Installer Relationship Specialty Start Date End Date Zacarias Flores [address] [place] [address] PCP - General Family Practice 10/26/17 Ana Maria Tinsley APRN WOOD GANG SAWYER [address] [place] [address] [address] Nurse Practitioner Cardiovascular Disease 11/26/21 Rosemarie Carrera MD [address] [place] [address] Cardiovascular Disease 07/09/22 Rosemarie Carrera MD [address] [place] [address] Assigned Heart and Vascular Provider 07/25/22
--- OUTSIDE RECORDS SUMMARY | 2023-09-27 08:39 | XMS_ITS | Encounter Summary ---
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 angina pectoris PVC's (premature ventricular contractions) Procedures Echocardiogram Complete [facility] TTE W/DOPPLER, COMPLETE [facility] ECHO COMPLETE W DOPPLER W CONTRAST [facility] ECHO COMPLETE W DOPPLER W/O CONTRAST [facility] IV PUSH SINGLE, INITIAL SUBSTANCE [facility] US GUIDE FOR PERICARDIOCENTESIS [facility] ECHO MYOCARD BX ZZC INJECTION, PERFLUTREN LIPID MICROSPHERES, PER ML [facility] STATISTIC IV PUSH SINGLE INITIAL SUBSTANCE OR ECHO MYOCARD BX OR INJECTION, PERFLUTREN LIPID MICROSPHERES, PER ML OR TTE W/DOPPLER, COMPLETE OR IV PUSH SINGLE, INITIAL SUBSTANCE OR TTE W/DOPPLER, COMPLETE OR TTE W/DOPPLER, COMPLETE HC US GUIDE FOR PERICARDIOCENTESIS HC ECHO MYOCARD BX HC IV PUSH SINGLE, INITIAL SUBSTANCE HC STATISTIC IV PUSH SINGLE INITIAL SUBSTANCE HC ECHO COMPLETE W DOPPLER W CONTRAST HC ECHO COMPLETE W DOPPLER W/O CONTRAST Rosemarie Carrera MD [address] [facility] [address] [place] [address] [facility] [address] [address] [place] [address] Referral ID Status Reason Start Date Expiration Date Visits Re quested Visits Authorized [id number] Closed 07/22/2022 07/22/2023 1 1 Reason for Visit * CV Testing (Routine) - Closed Specialty Diagnoses / Procedures Referred By Contac t Referred To Contact Cardiology Diagnoses Coronary artery disease involving coronary bypass graft of shoshone-bannock heart without angina pectoris PVC's (premature ventricular contractions) Procedures Echocardiogram Complete [facility] TTE W/DOPPLER, COMPLETE [facility] ECHO COMPLETE W DOPPLER W CONTRAST [facility] ECHO COMPLETE W DOPPLER W/O CONTRAST [facility] IV PUSH SINGLE, INITIAL SUBSTANCE ZZ[facility] US GUIDE FOR PERICARDIOCENTESIS Z[facility] ECHO MYOCARD BX ZZC INJECTION, PERFLUTREN LIPID MICROSPHERES, PER ML [facility] STATISTIC IV PUSH SINGLE INITIAL SUBSTANCE OR ECHO MYOCARD BX OR INJECTION, PERFLUTREN LIPID MICROSPHERES, PER ML OR TTE W/DOPPLER, COMPLETE OR IV PUSH SINGLE, INITIAL SUBSTANCE OR TTE W/DOPPLER, COMPLETE OR TTE W/DOPPLER, COMPLETE HC US GUIDE FOR PERICARDIOCENTESIS HC ECHO MYOCARD BX HC IV PUSH SINGLE, INITIAL SUBSTANCE HC STATISTIC IV PUSH SINGLE INITIAL SUBSTANCE HC ECHO COMPLETE W DOPPLER W CONTRAST HC ECHO COMPLETE W DOPPLER W/O CONTRAST Rosemarie Carrera MD [address] [place] [address] [facility] [address] [place] [address] Referral ID Status Reason Start Date Expiration Date Visits Re quested Visits Authorized [id number] Closed 07/22/2022 07/22/2023 1 1 Encounter Details Date Type Department Care Team (Latest Contact Info) Description 07/20/2023 9:40 AM CDT - 07/20/2023 11:59 PM CDT Hospital Encounter [facility] [address] [address] [place] [address] Rosemarie Carrera MD [address] [place] [address] Coronary artery disease involving coronary bypass graft of shoshone-bannock heart without angina pectoris; PVC's (premature ventricular [...] artery disease involving coronary bypass graft of shoshone-bannock heart without angina pectoris Take 1 tablet (81 mg) by mouth daily 30 tablet 11 12/04/2014 blood glucose monitoring ([employer] TOUCH ULTRA) test stripIndications:Type 2 diabetes mellitus [...] artery disease involving coronary bypass graft of shoshone-bannock heart without angina pectoris Take 1 tablet (50 mg) by mouth daily 90 tablet 3 07/22/2022 nitroglycerin (NITROSTAT) 0.4 MG SL tabletIndications:Coronar y artery disease involving shoshone-bannock coronary artery of shoshone-bannock heart without angina pectoris Place 1 tablet [...] Description 11/03/2023 7:45 AM CDT Office Visit [facility] Heart [place] [address] [facility] [address] [place] [phone] Rosemarie Carrera MD [address] [facility] [address] [place] [address] documented as of this encounter Procedures Procedure Name Priority Date/Time Associated Diagnosis Comments ECHO COMPLETE Routine 07/20/2023 10:15 AM CDT Coronary artery disease involving coronary bypass graft of shoshone-bannock heart without angina pectoris PVC's (premature ventricular contractions) documented in this encounter Results * ECHO COMPLETE (07/20/2023 10:15 AM CDT) LVEF 60-65% CARDIOLOGY RESULTS Anatomical Region Laterality Modality Echocardiography 07/20/2023 9:50 AM CDT Narrative 07/20/2023 10:39 AM CDT [id number]^DEBI^ROSEMARIE^DESTINI [facility] [address] [facility] [address] [place] [address] Name: ZAHRA ESCOBAR : 1955 Study Date: 07/20/2023 09:50 AM Age: 67 yrs Gender: Male Patient Location: [facility] Reason For Study: Coronary artery disease involving [...] Procedure Note Rosa Love MD - 07/20/2023 [id number]^DEBI^ROSEMARIE^DESTINI [facility]ch[facility] [address] [facility] [address] [place] [address] Name: ZAHRA ESCOBAR : 1955 Study Date: 07/20/2023 09:50 AM Age: 67 yrs Gender: Male Patient Location: [facility] Reason For Study: Coronary artery disease involving [...] artery disease involving coronary bypass graft of shoshone-bannock heart without angina pectoris PVC's (premature ventricular contractions) Other premature beats documented in this encounter Care Teams Tooler Relationship Specialty Start Date End Date Zacarias Flores [address] [place] [address] PCP - General Family Practice 10/26/17 Ana Maria Tinsley APRN CNP [address] [place] [address] Nurse Practitioner Cardiovascular Disease 11/26/21 Rosemarie Carrera MD [address] [place] [id number] Cardiovascular Disease 07/09/22 Rosemarie Carrera MD [address] [place] [address] Assigned Heart and Vascular Provider 07/25/22 documented as of this encounter
--- OUTSIDE RECORDS SUMMARY | 2023-09-27 08:39 | XMS_ITS | Clinical Summary ---
Author Organization [facility] Address [address] [place] [address] Care Team Providers Care Parks And Recreation Worker Name Role Phone Morales Andrade MD Primary [...] long-term current use of insulin ([facility]) ACCU-CHEK FASTCLIX LANCETS USE ONE LANCET TWICE A DAY. 200 each 3 12/11/2021 Active metFORMIN XR (GLUCOPHAGE-XR) 500 MG 24 hr tabletIndications:Type 2 diabetes mellitus with other specified complication, without long-term current use of insulin ([facility]) TAKE 2 TABLETS BY MOUTH TWICE A DAY FOR DIABETES. DO NOT CRUSH, CHEW, OR SPLIT. 360 tablet 3 08/31/2022 Active Empagliflozin 25 MG tabletIndications:Type 2 diabetes mellitus with other specified complication, without long-term current use of insulin ([facility]) Take one pill once a day in [...] system 12/08 Atherosclerotic heart diseas e of viejas coronary artery without angina pectoris 06/30/2016 Presence of aortocoronary bypass graft 7 Type 2 diabetes mellitus without complications 0 06/30/2016 Coronary artery disease invo lving coronary bypass graft of viejas heart without angina pectoris 11/28/2014 Overview: Overview: [...] Department Care Team Description 08/17/2023 Orders Only [facility] Medicine 4th Floor [address] [place] [address] Morales Andrade MD Type 2 diabetes mellitus without complications (HCC) 08/04/2023 Orders Only Family Medicine 4th Floor [address] [place] [address] Morales Andrade MD from Last 3 Months [...] week 08/24/2022 How often do you attend [facility] or buddhism services? 1 to 4 times per year 08/24/2022 Do you belong to any clubs o r organizations such as synagogue groups, unions, fraternal or athletic groups, or [...] Date Recorded PHQ-9 Total Score 2 08/24/2022 [facility] - Occupational Stress [...] place to sleep or slept in a detention (including now)? No 08/24/2022 Education Answer Date [...] - 16.6 mg/L 08/25/2022 1:23 PM CDT [facility] Creatinine, Urine 114 mg/dL 08/25/2022 1:18 PM CDT [facility] Comment: No established reference range. Microalb/Creat Ratio 8 0 - 16 mg/g 08/25/2022 1:23 PM CDT [facility] Urine 08/25/2022 8:15 AM CDT 08/25/2022 12:28 PM CDT Rachell Flores MD LAB URINE ORDERABLES [facility] [address] [place] [address] * (ABNORMAL) Hemoglobin A1c (08/25/2022 8:10 AM CDT) Hemoglobin A1C 7.2(H) 4.0 - 5.6 % A1C 08/25/2022 1:39 PM CDT [facility] Comment: Reference Range 4.0-5.6% is for [...] CDT Rachell Flores MD LAB BLOOD ORDERABLES [facility] [address] [place] [address] * Lipid panel (08/25/2022 8:10 AM CDT) Cholesterol 108 0 - 199 mg/dL 08/25/2022 1:40 PM T [facility] Comment: Recommended by National Cholesterol Education Program (ATP III) -------- Cholesterol Ranges -------- <200 ?Desirable 200-239 ? Borderline high >=240 ? High Triglycerides 85 0 - 149 mg/dL 08/25/2022 1:40 PM T [facility] Comment: -------- TRIG Ranges -------- <150 ?Normal 150-199 ? Borderline high 200-499 ? High >=500 ? Very high HDL 42 40 - 250 mg/dL 08/25/2022 1:40 PM T [facility] Comment: -------- HDL Ranges -------- <40 ?Low 40-59 ?Normal >=60 ? Optimal LDL Calculated 49 0 - 99 mg/dL 08/25/2022 1:40 PM CDT [facility] Comment: -------- LDL Ranges -------- <100 ? Optimal 100-129 ?Near optimal/above optimal 130-159 ?Borderline high 160-189 ?High >=190 ?Very high Fasting? Yes 08/25/2022 8:13 AM CDT [facility] Blood (Blood, Venous) 08/25/2022 8:10 AM CDT 08/25/2022 12:28 PM CDT Rachell Flores MD LAB BLOOD ORDERABLES [facility] [address] [place] [address] from Last 3 Months or Most Recently Relevant to Health Maintenance Care Teams Parks And Recreation Worker Relationship Specialty Start Date End Date Morales Andrade MD [address] [place] [address] PCP - General 11/26/22
--- OUTSIDE RECORDS SUMMARY | 2023-09-27 08:40 | XMS_ITS | Encounter Summary ---
Author Organization [facility] Address [address] [place] [address]. [place] [address] Care Team Providers Care Linter Saw Sharpener Name Role Phone Gabo Poole MD Primary Care Provider [phone] Zacarias Flores Primary Care Provider Gabo Poole MD Unavailable Gabo Poole MD Unavailable [phone] Scott Hair MD Unavailable [phone] Scott Hair MD Unavailable Ana Maria Tinsley APRN CHEMICAL COMPOUNDER Unavailable [phone] Ana Maria Tinsley APRN CHEMICAL COMPOUNDER Unavailable Scott Hair MD Unavailable Scott Hair MD Unavailable Encounter Details Date Type Department Care Team (Late st Contact Info) Description 07/30/2011 Office Visit-[facility] [place] [address] [place] [address] Scott Hair MD [address] [facility] [address] [place], [place] [address] Social History Tobacco Use Types Packs/Day Years [...] old Referring Physician: GABO POOLE Referring Clinic: [facility] CURRENT DIAGNOSES 1. - CAD, 414.00 2. - Hypercholesterolemia, 272.0 3. IA-S/P Lateral, 412 4. 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 documented in this encounter Plan of Treatment Upcoming Encounters Date Type Department Care Team (Late st Contact Info) Description 11/03/2023 7:45 AM CDT Office Visit [facility] [address] [place] [address] Scott Hair MD [address] [facility] [address] [place], [place] [address] documented as of this encounter Visit Diagnoses Not on filedocumented in this encounter Care Teams Linter Saw Sharpener Relationship Specialty Start Date End Date Gabo Poole MD PCP - General Internal Medicine 07/23/09 10/25/17 Zacarias Flores [address] [place] [address] PCP - General Family Practice 10/26/17 Gabo Poole MD [facility] [facility] [place] [address] PCP - Assigned PCP 03/23/16 04/12/18 Gabo Poole MD [address] [facility] [place] [address] Assigned PCP 03/23/16 12/24/18 Scott Hair MD [address] [place] [address] Assigned Heart and Vascular Provider 12/01/19 05/18/20 Scott Hair MD [address] [place] [address] Assigned Heart and Vascular Provider 12/15/20 06/05/22 Ana Maria Tinsley APRN CHEMICAL COMPOUNDER [address] [place] [address]30[address] Nurse Practitioner Cardiovascular Disease 11/26/21 Ana Maria Tinsley APRN CHEMICAL COMPOUNDER [address] [place] [address] Assigned Heart and Vascular Provider 06/06/22 07/24/22 Scott Hair MD [address] [place] [id number] MD Cardiovascular Disease 07/09/22 Scott Hair MD [address] [place] [address] Assigned Heart and Vascular Provider 07/25/22 documented as of this encounter
--- OUTSIDE RECORDS SUMMARY | 2023-09-27 08:40 | XMS_ITS | Encounter Summary ---
Author Organization [facility] Address [address] [place] [address]. [place] [address] Care Team Providers Care Deodorizer Operator Name Role Phone Maxine Casas MD Primary Care Provider Unavailable Francisco Kumar MD Primary Care Provider Zacarias Flores Primary Care Provider Francisco Kumar MD Unavailable [phone] Francisco Kumar MD Unavailable [phone] Scott Hair MD Unavailable Scott Hair MD Unavailable [phone] Ana Maria Tinsley APRN HOGSHEAD INSPECTOR Unavailable [phone] Ana Maria Tinsley APRN HOGSHEAD INSPECTOR Unavailable [phone] Scott Hair MD Unavailable [phone] Scott Hair MD Unavailable [phone] Encounter Details Date Type Department Care Team (Late st Contact Info) Description 05/26/2006 Office Visit-[facility] [place] [address] [facility] [address] [place] [address] Scott Hair MD [address] [facility] [address] [place] [address] Social History Tobacco Use Types Packs/Day Years [...] old Referring Physician: ZACARIAS MCCLOUD Referring Clinic: [facility] CURRENT DIAGNOSES 1. - CAD, 414.00 2. AL-S/P Lateral, 412 3. - Hypercholesterolemia, 272.0 4. 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[employer]; Sexual Activity - sexually active; Residence - lives alone; Place of - [place]; Hours Worked - 40 hours per week; [...] Description 11/03/2023 7:45 AM CDT Office Visit [address] [address] Scott Hair MD [address] [place] [address] documented as of this encounter Visit Diagnoses Not on filedocumented in this encounter Care Teams Deodorizer Operator Relationship Specialty Start Date End Date Yessenia, Maxine Wiggins MD PCP - General 03/24/02 07/22/09 Francisco Kumar MD PCP - General Internal Medicine 07/23/09 10/25/17 Zacarias Flores [address] [place] [address] PCP - General Family Practice 10/26/17 Francisco Kumar MD [address] [place] [address] [place] [address] PCP - Assigned PCP 03/23/16 04/12/18 Francisco Kumar MD [address] [place] [address] [place] [address] Assigned PCP 03/23/16 12/24/18 Scott Hair MD [address] [place] [address] Assigned Heart and Vascular Provider 12/01/19 05/18/20 Scott Hair MD [address] [place] [address] Assigned Heart and Vascular Provider 12/15/20 06/05/22 Ana Maria Tinsley APRN CNP [address] [place] [address] Nurse Practitioner Cardiovascular Disease 11/26/21 Ana Maria Tinsley APRN HOGSHEAD INSPECTOR [address] [place] [address]35[address] Assigned Heart and Vascular Provider 06/06/22 07/24/22 Scott Hair MD [address] [place] [address] Cardiovascular Disease 07/09/22 Scott Hair MD [address] [place] [address] Assigned Heart and Vascular Provider 07/25/22 documented as of this encounter
--- OUTSIDE RECORDS SUMMARY | 2023-09-27 08:40 | XMS_ITS | Encounter Summary ---
Author Organization [facility] Address [address] [place] [address] Care Team Providers Care Live Study Manager Name Role Phone Francisco Kumar MD Primary Care Provider [phone] Zacarias Flores Primary Care Provider Francisco Kumar MD Unavailable Francisco Kumar MD Unavailable Scott Hair MD Unavailable Scott Hair MD Unavailable Ana Maria Tinsley APRN EVENT MARKETING INTERN Unavailable Ana Maria Tinsley APRN EVENT MARKETING INTERN Unavailable Scott Hair MD Unavailable Scott Hair MD Unavailable Encounter Details Date Type Department Care Team (Late st Contact Info) Description 04/14/2011 [facility] [place] [address] [address] Michaelle [place] Social History Tobacco Use Types Packs/Day Years [...] 11/03/2023 7:45 AM CDT Office Visit [facility] [place] [address] [facility] [address] [place] [phone] Scott Hair MD [address] [place] [address] documented as of this encounter Visit Diagnoses Not on filedocumented in this encounter Care Teams Live Study Manager Relationship Specialty Start Date End Date Francisco Kumar MD PCP - General Internal Medicine 07/23/09 10/25/17 Zacarias Flores [address] [facility] 20 [place] [address] PCP - General Family Practice 10/26/17 [place] [address] [place] [address] [place] [address] PCP - Assigned PCP 03/23/16 04/12/18 Francisco Kumar MD [address] [place] [address] [place] [address] Assigned PCP 03/23/16 12/24/18 Scott Hair MD [address] [place] [address] Assigned Heart and Vascular Provider 12/01/19 05/18/20 Scott Hair MD [address] [place] [address] Assigned Heart and Vascular Provider 12/15/20 06/05/22 Ana Maria Tinsley APRN EVENT MARKETING INTERN [address] [place] [address]355 Nurse Practitioner Cardiovascular Disease 11/26/21 Ana Maria Tinsley APRN EVENT MARKETING INTERN [address] [place] 717735 Assigned Heart and Vascular Provider 06/06/22 07/24/22 Scott Hair MD [address] [place] [address] MD Cardiovascular Disease 07/09/22 Scott Hair MD [address] [place] [address] Assigned Heart and Vascular Provider 07/25/22 documented as of this encounter
--- OUTSIDE RECORDS SUMMARY | 2023-09-27 08:40 | XMS_ITS | Encounter Summary ---
Author Organization [facility] Address [address] [place] [address]. [place] [address] Care Team Providers Care Legal Editor Name Role Phone Gabo Poole MD Primary Care Provider [phone] Zacarias Flores Primary Care Provider Gabo Poole MD Unavailable [phone] Gabo Poole MD Unavailable [phone] Scott Hair MD Unavailable Scott Hair MD Unavailable Ana Maria Tinsley APRN NATIONAL FACILITIES MANAGER Unavailable [phone] Ana Maria Tinsley APRN NATIONAL FACILITIES MANAGER Unavailable Scott Hair MD Unavailable Scott Hair MD Unavailable Encounter Details Date Type Department Care Team (Late st Contact Info) Description 07/09/2010 Office Visit-[facility] [place] [address] [facility] [address] [place] [address] Scott Hair MD [address] [facility] [address] [place] [address] Social History Tobacco Use Types Packs/Day Years [...] old Referring Physician: GABO POOLE Referring Clinic: [facility] CURRENT DIAGNOSES 1. - CAD, 414.00 2. - Hypercholesterolemia, 272.0 3. AL-S/P Lateral, 412 4. 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[employer] Sexual Activity - sexually active; Residence - lives alone; Place of - [place]; Hours Worked - 40 hours per week; [...] Description 11/03/2023 7:45 AM CDT Office Visit [facility] [address] [facility] [address] [place] [phone] Scott Hair MD [address] [facility] [address] [place] [address] documented as of this encounter Visit Diagnoses Not on filedocumented in this encounter Care Teams Legal Editor Relationship Specialty Start Date End Date Gabo Poole MD PCP - General Internal Medicine 07/23/09 10/25/17 Zacarias Flores [address] [place] [address] PCP - General Family Practice 10/26/17 Gabo Poole MD [address] [place] [address] [place] [address] PCP - Assigned PCP 03/23/16 04/12/18 Gabo Poole MD [address] [place] [address] [place] [address] Assigned PCP 03/23/16 12/24/18 Scott Hair MD [address] [place] [address] Assigned Heart and Vascular Provider 12/01/19 05/18/20 Scott Hair MD [address] [place] [address] Assigned Heart and Vascular Provider 12/15/20 06/05/22 Ana Maria Tinsley APRN NATIONAL FACILITIES MANAGER [address] [place] [address] Nurse Practitioner Cardiovascular Disease 11/26/21 Ana Maria Tinsley APRN NATIONAL FACILITIES MANAGER [address] [place] [address] Assigned Heart and Vascular Provider 06/06/22 07/24/22 Scott Hair MD [address] [place] [address] MD Cardiovascular Disease 07/09/22 Scott Hair MD [address] [place] [address]45 Assigned Heart and Vascular Provider 07/25/22 documented as of this encounter
--- OUTSIDE RECORDS SUMMARY | 2023-09-27 08:40 | XMS_ITS | Encounter Summary ---
Author Organization [facility] Address [address] [place] [address] Care Team Providers Care Field Artillery Operations Man Name Role Phone Maxine Casas MD Primary Care Provider Unavailable Francisco Kumar MD Primary Care Provider [phone] Zacarias Flores Primary Care Provider [phone] Francisco Kumar MD Unavailable Francisco Kumar MD Unavailable [phone] Scott Hair MD Unavailable Scott Hair MD Unavailable Ana Maria Tinsley APRN TUNNEL ELASTIC OPERATOR CHAINSTITCH Unavailable Ana Maria Tinsley APRN TUNNEL ELASTIC OPERATOR CHAINSTITCH Unavailable Scott Hair MD Unavailable Scott Hair MD Unavailable Encounter Details Date Type Department Care Team (Late st Contact Info) Description 03/09/[address] [address] Zacarias Arroyo MD [address] [place] [address]157 Social History Tobacco Use Types Packs/Day Years [...] Description 11/03/2023 7:45 AM CDT Office Visit [facility] [address] [place] [phone] Scott Hair MD [address] [place] [address] documented as of this encounter Visit Diagnoses Not on filedocumented in this encounter Care Teams Field Artillery Operations Man Relationship Specialty Start Date End Date Yessenia, Maxine Wiggins MD PCP - General 03/24/02 07/22/09 Francisco Kumar MD PCP - General Internal Medicine 07/23/09 10/25/17 Zacarias Flores [address] [facility] 20 [place] [address] PCP - General Family Practice 10/26/17 Francisco Kumar MD [address] [place] [address] [place] [address] PCP - Assigned PCP 03/23/16 04/12/18 Francisco Kumar MD [address] [place] [address] [place] [address] Assigned PCP 03/23/16 12/24/18 Scott Hair MD [address] [place] [address] Assigned Heart and Vascular Provider 12/01/19 05/18/20 Scott Hair MD [address] [place] [address] Assigned Heart and Vascular Provider 12/15/20 06/05/22 Ana Maria Tinsley APRN TUNNEL ELASTIC OPERATOR CHAINSTITCH [address] [place] 6654[address] Nurse Practitioner Cardiovascular Disease 11/26/21 Ana Maria Tinsley APRN TUNNEL ELASTIC OPERATOR CHAINSTITCH [address] [place] [address] Assigned Heart and Vascular Provider 06/06/22 07/24/22 Scott Hair MD [address] [place] [address] Cardiovascular Disease 07/09/22 Scott Hair MD [address] [place] [address] Assigned Heart and Vascular Provider 07/25/22 documented as of this encounter
--- OUTSIDE RECORDS SUMMARY | 2023-09-27 08:40 | XMS_ITS | Encounter Summary ---
Author Organization [facility] Address [address] [place] [address] Care Team Providers Care Professor Of Special Education Name Role Phone Maxine Casas MD Primary Care Provider Unavailable Francisco Kumar MD Primary Care Provider [phone] Zacarias Flores Primary Care Provider Francisco Kumar MD Unavailable Francisco Kumar MD Unavailable [phone] Scott Hair MD Unavailable Scott Hair MD Unavailable Ana Maria Tinsley APRN WIRE WRAPPING MACHINE OPERATOR Unavailable Ana Maria Tinsley APRN WIRE WRAPPING MACHINE OPERATOR Unavailable Scott Hair MD Unavailable Scott Hair MD Unavailable Encounter Details Date Type Department Care Team (Late st Contact Info) Description 04/25/2002 Office Visit-[facility] [address] [place] [address] Unknown, DoctorMD Social History Tobacco Use Types [...] CAD, 414.00 3. - Hypercholesterolemia, 272.0 4. CA-S/P Lateral, 412 ALLERGIES NKA MEDICATIONS 1. 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 [place] [address] [place] [phone] Scott Hair MD [address] [place] [address] [place] [address] documented as of this encounter Visit Diagnoses Not on filedocumented in this encounter Care Teams Professor Of Special Education Relationship Specialty Start Date End Date Maxine Casas MD PCP - General 03/24/02 07/22/09 Francisco Kumar MD PCP - General Internal Medicine 07/23/09 10/25/17 Zacarias Flores [address] [place] [address] PCP - General Family Practice 10/26/17 [place] [address] [place] [address] [place] [address] PCP - Assigned PCP 03/23/16 04/12/18 Francisco Kumar MD [address] [place] [address] [place] [address] Assigned PCP 03/23/16 12/24/18 Scott Hair MD [address] [place] [address] Assigned Heart and Vascular Provider 12/01/19 05/18/20 Scott Hair MD [address] [place] [address] Assigned Heart and Vascular Provider 12/15/20 06/05/22 Ana Maria Tinsley APRN [facility] [address] [place] [address]24[address] Nurse Practitioner Cardiovascular Disease 11/26/21 Ana Maria Tinsley APRN [facility] [address] [place] [address]15[address] Assigned Heart and Vascular Provider 06/06/22 07/24/22 Scott Hair MD [address] [place] [address]25[address] MD Cardiovascular Disease 07/09/22 Scott Hair MD [address] [place] [address] Assigned Heart and Vascular Provider 07/25/22 documented as of this encounter
--- OUTSIDE RECORDS SUMMARY | 2023-09-27 08:40 | XMS_ITS | Encounter Summary ---
Author Organization [place] Address [address] [place] [address]. [place] [address] Care Team Providers Care Artist Suspect Name Role Phone Maxine Casas MD Primary Care Provider Unavailable Francisco Kumar MD Primary Care Provider Zacarias Flores Primary Care Provider Francisco Kumar MD Unavailable [phone] Francisco Kumar MD Unavailable [phone] Scott Hair MD Unavailable Scott Hair MD Unavailable [phone] Ana Maria Tinsley APRN RENTAL SALES REPRESENTATIVE Unavailable [phone] Ana Maria Tinsley APRN RENTAL SALES REPRESENTATIVE Unavailable [phone] Scott Hair MD Unavailable [phone] Scott Hair MD Unavailable [phone] Encounter Details Date Type Department Care Team (Late st Contact Info) Description 06/01/2007 Office Visit-[facility] [place] [address] [facility] [address] [place] [address] Scott Hair MD [address] [facility] [address] [place] [address] Social History Tobacco Use Types Packs/Day Years [...] by: Scott Hair M.D. DATE: 06/01/2007 RHEAALEKSEY ZAHRA DATE OF : 1955 AGE: [age] years old Referring Physician: ZACARIAS MCCLOUD Referring Clinic: [facility] CURRENT DIAGNOSES 1. - CAD, 414.00 2. VA-S/P Lateral, 412 3. - Hypercholesterolemia, 272.0 4. [...] bruits. 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[employer]; Sexual Activity - sexually active; Residence - lives alone; Place of - [place]; Hours Worked - 40 hours per [...] 7:45 AM CDT Office Visit [facility] [address] [place] [address] [address] [place] [address] Scott Hair MD [address] [place] [address] [address] [place], [place] 889015 documented as of this encounter Visit Diagnoses Not on filedocumented in this encounter Care Teams Artist Suspect Relationship Specialty Start Date End Date Maxine Casas MD PCP - General 03/24/02 07/22/09 Francisco Kumar MD PCP - General Internal Medicine 07/23/09 10/25/17 Zacarias Flores [address] [facility] 20 [place] [address] PCP - General Family Practice 10/26/17 Francisco Kumar MD [address] [facility] [address] PCP - Assigned PCP 03/23/16 04/12/18 Francisco Kumar MD [address] [place] [address] Assigned PCP 03/23/16 12/24/18 Scott Hair MD [address] [place] [address] Assigned Heart and Vascular Provider 12/01/19 05/18/20 Scott Hair MD [address] [place] [address] Assigned Heart and Vascular Provider 12/15/20 06/05/22 Ana Maria Tinsley APRN RENTAL SALES REPRESENTATIVE [address] [place] [address] Nurse Practitioner Cardiovascular Disease 11/26/21 Ana Maria Tinsley APRN RENTAL SALES REPRESENTATIVE [address] [place] [address] Assigned Heart and Vascular Provider 06/06/22 07/24/22 Scott Hair MD [address] [place] [address] Cardiovascular Disease 07/09/22 Scott Hair MD [address] [place] [address] Assigned Heart and Vascular Provider 07/25/22 documented as of this encounter
--- OUTSIDE RECORDS SUMMARY | 2023-09-27 08:40 | XMS_ITS | Encounter Summary ---
Author Organization [place] Address [address] [place] [address] Care Team Providers Care Ignition Expert Name Role Phone Maxine Casas MD Primary Care Provider Unavailable Francisco Kumar MD Primary Care Provider [phone] Zacarias Flores Primary Care Provider Francisco Kumar MD Unavailable Francisco Kumar MD Unavailable [phone] Scott Hair MD Unavailable Scott Hair MD Unavailable Ana Maria Tinsley APRN RN OCCUPATIONAL Unavailable Ana Maria Tinsley APRN RN OCCUPATIONAL Unavailable Scott Hair MD Unavailable Scott Hair MD Unavailable Encounter Details Date Type Department Care Team (Late st Contact Info) Description 04/23/2003 Office Visit-[facility] [address] [place] [address] Unknown, DoctorMD Social History Tobacco Use Types [...] old Referring Physician: ZACARIAS MCCLOUD Referring Clinic: [facility] CURRENT DIAGNOSES 1. 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 - CAD, 414.00 3. - Hypercholesterolemia, 272.0 4. RI-S/P Lateral, 412 ALLERGIES NKA MEDICATIONS 1. 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 Zahra uTcker is a 47-year-old gentleman with coronary artery [...] AM CDT Office Visit [facility] [place] [id number] [facility] [address] [place] [address] Scott Hair MD [address] [facility] [address] [place] [address] documented as of this encounter Visit Diagnoses Not on filedocumented in this encounter Care Teams Ignition Expert Relationship Specialty Start Date End Date Maxine Casas MD PCP - General 03/24/02 07/22/09 Francisco Kumar MD PCP - General Internal Medicine 07/23/09 10/25/17 Zacarias Flores [address] [place] [address] PCP - General Family Practice 10/26/17 Francisco Kumar MD [address] [place] [address] [place] [address] PCP - Assigned PCP 03/23/16 04/12/18 Francisco Kumar MD [address] [place] [address] [place] [address] Assigned PCP 03/23/16 12/24/18 Scott Hair MD [address] [place] [address] Assigned Heart and Vascular Provider 12/01/19 05/18/20 Scott Hair MD [address] [place] [address] Assigned Heart and Vascular Provider 12/15/20 06/05/22 Ana Maria Tinsley APRN RN OCCUPATIONAL [address] [place] 672695 Nurse Practitioner Cardiovascular Disease 11/26/21 Ana Maria Tinsley APRN RN OCCUPATIONAL [address] [place] 495185 Assigned Heart and Vascular Provider 06/06/22 07/24/22 Scott Hair MD [address] [place] [address] MD Cardiovascular Disease 07/09/22 Scott Hair MD [address] [place] [address]9965 Assigned Heart and Vascular Provider 07/25/22 documented as of this encounter
--- OUTSIDE RECORDS SUMMARY | 2023-09-27 08:40 | XMS_ITS | Encounter Summary ---
Author Organization [place] Address [address] [place] [address]. [place] [address] Care Team Providers Care Grain Mill Products Inspector Name Role Phone Maxine Casas MD Primary Care Provider Unavailable Gabo Poole MD Primary Care Provider Zacarias Flores Primary Care Provider Gabo Poole MD Unavailable [phone] Gabo Poole MD Unavailable [phone] Scott Hair MD Unavailable Scott Hair MD Unavailable Ana Maria Tinsley APRN ORGAN TUNER ELECTRONIC Unavailable [phone] Ana Maria Tinsley APRN ORGAN TUNER ELECTRONIC Unavailable [phone] Scott Hair MD Unavailable Scott Hair MD Unavailable [phone] Encounter Details Date Type Department Care Team (Late st Contact Info) Description 07/10/2009 Office Visit-[facility] [place] [address] [facility] [address] [place] [address] Scott Hair MD [address] [facility] [address] [place] 4[address] Social History Tobacco Use Types Packs/Day Years [...] old Referring Physician: GABO POOLE Referring Clinic: [facility] CURRENT DIAGNOSES 1. OH-S/P Lateral, 412 2. - Hypercholesterolemia, 272.0 3. 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[employer]; Sexual Activity - sexually active; Residence - lives alone; Place of - [place]; Hours Worked - 40 hours per week; [...] 11/03/2023 7:45 AM CDT Office Visit [facility] [address] [place] [phone] Scott Hair MD [address] [place], [place] [address] [place] [address] documented as of this encounter Visit Diagnoses Not on filedocumented in this encounter Care Teams Grain Mill Products Inspector Relationship Specialty Start Date End Date Yessenia Maxine Wiggins MD PCP - General 03/24/02 07/22/09 Gabo Poole MD PCP - General Internal Medicine 07/23/09 10/25/17 Zacarias Flores [address] [place] [address] PCP - General Family Practice 10/26/17 Gabo Poole MD [address] [place] [address] [place] [address] PCP - Assigned PCP 03/23/16 04/12/18 Gabo Poole MD [address] [place] [address] [place] [address] Assigned PCP 03/23/16 12/24/18 Scott Hair MD [address] [place] [address]34[address] Assigned Heart and Vascular Provider 12/01/19 05/18/20 Scott Hair MD [address] [place] [address] Assigned Heart and Vascular Provider 12/15/20 06/05/22 Ana Maria Tinsley APRN ORGAN TUNER ELECTRONIC [address] [place] [address] Nurse Practitioner Cardiovascular Disease 11/26/21 Ana Maria Tinsley APRN ORGAN TUNER ELECTRONIC [address] [place] [address] Assigned Heart and Vascular Provider 06/06/22 07/24/22 Scott Hair MD [address] [place] [address] MD Cardiovascular Disease 07/09/22 Scott Hair MD [address] [place] [address] Assigned Heart and Vascular Provider 07/25/22 documented as of this encounter
--- OUTSIDE RECORDS SUMMARY | 2023-09-27 08:40 | XMS_ITS | Encounter Summary ---
Author Organization [place] Address [address] [place] [address] Care Team Providers Care Railroad Crane Operator Name Role Phone Maxine Casas MD Primary Care Provider Unavailable Francisco Kumar MD Primary Care Provider Zacarias Flores Primary Care Provider Francisco Kumar MD Unavailable [phone] Francisco Kumar MD Unavailable [phone] Scott Hair MD Unavailable Scott Hair MD Unavailable Ana Maria Tinsley APRN NEWS COMMENTATOR Unavailable Ana Maria Tinsley APRN NEWS COMMENTATOR Unavailable Scott Hair MD Unavailable Scott Hair MD Unavailable Encounter Details Date Type Department Care Team ([facility] Contact Info) Description 03/10/2007 My[facility] Medical Advice Initial Department Harjinder [place]ase[place] Social History Tobacco Use Types Packs/Day Years [...] Upcoming Encounters Date Type Department Care Team ([facility] Contact Info) Description 11/03/2023 7:45 AM CDT Office Visit [facility] [place] [address] [place] [phone] Scott Hair MD [address] [place] [address] documented as of this encounter Visit Diagnoses Not on filedocumented in this encounter Care Teams Railroad Crane Operator Relationship Specialty Start Date End Date Yessenia, Maxine Wiggins MD PCP - General 03/24/02 07/22/09 Francisco Kumar MD PCP - General Internal Medicine 07/23/09 10/25/[address] [facility] 20 [place] [address] PCP - General Family Practice 10/26/17 Francisco Kumar MD [address] [place] [address] [place] [address] PCP - Assigned PCP 03/23/16 04/12/18 Francisco Kumar MD [address] [place] [address] [place] [address] Assigned PCP 03/23/16 12/24/18 Scott Hair MD [address] [place] [address] Assigned Heart and Vascular Provider 12/01/19 05/18/20 Scott Hair MD [address] [place] [address] Assigned Heart and Vascular Provider 12/15/20 06/05/22 Ana Mraia Tinsley APRN NEWS COMMENTATOR [address] [place] [address]189[address] Nurse Practitioner Cardiovascular Disease 11/26/21 Ana Maria Tinsley APRN NEWS COMMENTATOR [address] [place] 9134[address] Assigned Heart and Vascular Provider 06/06/22 07/24/22 Scott Hair MD [address] [place] [address]265 MD Cardiovascular Disease 07/09/22 Scott Hair MD [address] [place] [address]14[address] Assigned Heart and Vascular Provider 07/25/22 documented as of this encounter
--- OUTSIDE RECORDS SUMMARY | 2023-09-27 08:40 | XMS_ITS | Encounter Summary ---
Author Organization [facility] Address [address] [place] [address] Care Team Providers Care Setter Cold Rolling Machine Name Role Phone Francisco Kumar MD Primary Care Provider [phone] Zacarias Flores Primary Care Provider Francisco Kumar MD Unavailable Francisco Kumar MD Unavailable [phone] Scott Hair MD Unavailable Scott Hair MD Unavailable Ana Maria Tinsley APRN CATERING ADMINISTRATIVE ASSISTANT Unavailable Ana Maria Tinsley APRN CATERING ADMINISTRATIVE ASSISTANT Unavailable Scott Hair MD Unavailable Scott Hair MD Unavailable Encounter Details Date Type Department Care Team (Late st Contact Info) Description 02/03/2010 [facility] [place] [address] [address] Michaelle [facility] Social History Tobacco Use Types Packs/Day Years [...] Description 11/03/2023 7:45 AM CDT Office Visit [facility] [place] [address] [facility] [address] [place] [phone] Scott Hair MD [address] [place] [address] documented as of this encounter Visit Diagnoses Not on filedocumented in this encounter Care Teams Setter Cold Rolling Machine Relationship Specialty Start Date End Date Francisco Kumar MD PCP - General Internal Medicine 07/23/09 10/25/17 Zacarias Flores 1705 [facility] 20 [place] [address] PCP - General Family Practice 10/26/17 [place] [address] [place] [address] [place] [address] PCP - Assigned PCP 03/23/16 04/12/18 [place] [address] [place] [address] [place] [address] Assigned PCP 03/23/16 12/24/18 Scott Hair MD [address] [place] [address] Assigned Heart and Vascular Provider 12/01/19 05/18/20 Scott Hair MD [address] [place] [address] Assigned Heart and Vascular Provider 12/15/20 06/05/22 Ana Maria Tinsley APRN CATERING ADMINISTRATIVE ASSISTANT [address] [place] [address]18415 Nurse Practitioner Cardiovascular Disease 11/26/21 Ana Maria Tinsley APRN CATERING ADMINISTRATIVE ASSISTANT [address] [place] [address] Assigned Heart and Vascular Provider 06/06/22 07/24/22 Scott Hair MD [address] [place] [address]265 Cardiovascular Disease 07/09/22 Scott Hair MD [address] [place] [address]256[address] Assigned Heart and Vascular Provider 07/25/22 documented as of this encounter
--- OUTSIDE RECORDS SUMMARY | 2023-09-27 08:40 | XMS_ITS | Encounter Summary ---
Author Organization [place] Address [address] [place] [address] Care Team Providers Care Zone Maintenance Technician Name Role Phone Maxine Casas MD Primary Care Provider Unavailable Francisco Kumar MD Primary Care Provider [phone] Zacarias Flores Primary Care Provider [phone] Francisco Kumar MD Unavailable Francisco Kumar MD Unavailable [phone] Scott Hair MD Unavailable Scott Hair MD Unavailable Ana Maria Tinsley APRN BIOMEDICAL FIELD SERVICE ENGINEER Unavailable Ana Maria Tinsley APRN BIOMEDICAL FIELD SERVICE ENGINEER Unavailable Scott Hair MD Unavailable Scott Hair MD Unavailable Encounter Details Date Type Department Care Team (Late st Contact Info) Description 04/26/2001 Office Visit-[facility] [address] [place] [address] Unknown, DoctorMD Social History Tobacco Use Types [...] CABG, V45.81 2. - Hypercholesterolemia, 272.0 3. ME-S/P Lateral, 412 4. CAD, 414.9 5. 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[employer]; Sexual Activity -sexually active; Residence - lives [...] Description 11/03/2023 7:45 AM CDT Office Visit [facility] [address] [facility] [address] [place] [phone] Scott Hair MD [address] [facility] [address] [place], [place] [address] documented as of this encounter Visit Diagnoses Not on filedocumented in this encounter Care Teams Zone Maintenance Technician Relationship Specialty Start Date End Date Yessenia, Maxine Wiggins MD PCP - General 03/24/02 07/22/09 Francisco Kumar MD PCP - General Internal Medicine 07/23/09 10/25/17 Zacarias Flores [address] [place] [address] PCP - General Family Practice 10/26/17 [place] [address] [place] [address] [place] [address] PCP - Assigned PCP 03/23/16 04/12/18 [place] [address] [place] [address] [place] [address] Assigned PCP 03/23/16 12/24/18 Scott Hair MD [address] [place] [address] Assigned Heart and Vascular Provider 12/01/19 05/18/20 Scott Hair MD [address] [place] [address] Assigned Heart and Vascular Provider 12/15/20 06/05/22 Ana Maria Tinsley APRN BIOMEDICAL FIELD SERVICE ENGINEER [address] [place] [address] Nurse Practitioner Cardiovascular Disease 11/26/21 Ana Maria Tinsley APRN BIOMEDICAL FIELD SERVICE ENGINEER [address] [place] [address] Assigned Heart and Vascular Provider 06/06/22 07/24/22 Scott Hair MD [address] [place] [address] Cardiovascular Disease 07/09/22 Scott Hair MD [address] [place] [address] Assigned Heart and Vascular Provider 07/25/22 documented as of this encounter
--- OUTSIDE RECORDS SUMMARY | 2023-09-27 08:40 | XMS_ITS | Encounter Summary ---
Author Organization [place] Address [address] [place] [address] Care Team Providers Care Roast Master Name Role Phone Maxine Casas MD Primary Care Provider Unavailable Francicso Kumar MD Primary Care Provider [phone] Zacarias Flores Primary Care Provider [phone] Francisco Kumar MD Unavailable Francisco Kumar MD Unavailable [phone] Scott Hair MD Unavailable Scott Hair MD Unavailable Ana Maria Tinsley APRN UNDERGROUND BOLTING MACHINE OPERATOR Unavailable Ana Maria Tinsley APRN UNDERGROUND BOLTING MACHINE OPERATOR Unavailable Scott Hair MD Unavailable Scott Hair MD Unavailable Encounter Details Date Type Department Care Team (Late st Contact Info) Description 04/21/2004 Office Visit-[facility] [address] [place] [address] Unknown, DoctorMD Social History Tobacco Use Types [...] old Referring Physician: ZACARIAS MCCLOUD Referring Clinic: [facility] CURRENT DIAGNOSES 1. - Hypercholesterolemia, 272.0 2. - CABG, V45.81 3. - CAD, 414.00 4. 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 Zahra Escobar is a 48-year-old [...] 6 months 4. Lipid profile/ALT 1 year Soctt Hair M.D. documented in this encounter Plan of Treatment Upcoming Encounters Date Type Department Care Team (Late st Contact Info) Description 11/03/2023 7:45 AM CDT Office Visit [facility] [place] [address] [facility] [address] [place] [phone] Scott Hair MD [address] [place] [address] documented as of this encounter Visit Diagnoses Not on filedocumented in this encounter Care Teams Roast Master Relationship Specialty Start Date End Date Yessenia, Maxine Wiggins MD PCP - General 03/24/02 07/22/09 Francisco Kumar MD PCP - General Internal Medicine 07/23/09 10/25/17 Zacarias Flores [facility] [place] 20 [place] [address] PCP - General Family Practice 10/26/17 Francisco Kumar MD [address] [place] [address] [place] [address] PCP - Assigned PCP 03/23/16 04/12/18 Francisco Kumar MD [address] [place] [address] [place] [address] Assigned PCP 03/23/16 12/24/18 Scott Hair MD [address] [place] [address] Assigned Heart and Vascular Provider 12/01/19 05/18/20 Scott Hair MD [address] [place] [address]45[address] Assigned Heart and Vascular Provider 12/15/20 06/05/22 Ana Maria Tinsley APRN UNDERGROUND BOLTING MACHINE OPERATOR [address] [place] [address] [address] Nurse Practitioner Cardiovascular Disease 11/26/21 Ana Maria Tinsley APRN UNDERGROUND BOLTING MACHINE OPERATOR [address] [place] 196695 Assigned Heart and Vascular Provider 06/06/22 07/24/22 Scott Hair MD [address] [place] [address]65[address] MD Cardiovascular Disease 07/09/22 Scott Hair MD [address] [place] [address]697[address] Assigned Heart and Vascular Provider 07/25/22 documented as of this encounter
--- OUTSIDE RECORDS SUMMARY | 2023-09-27 08:40 | XMS_ITS | Encounter Summary ---
Author Organization [facility] Address [address] [place] [address]. [place] [address] Care Team Providers Care Jewelry Store Manager Name Role Phone Gabo Poole MD Primary Care Provider [phone] Zacarias Flores Primary Care Provider Gabo Poole MD Unavailable [phone] Gabo Poole MD Unavailable [phone] Scott Hair MD Unavailable Scott Hair MD Unavailable Ana Maria Tinsley APRN INSIDE SALES RECRUITER Unavailable [phone] Ana Maria Tinsley APRN INSIDE SALES RECRUITER Unavailable Scott Hair MD Unavailable Scott Hair MD Unavailable Encounter Details Date Type Department Care Team (Late st Contact Info) Description 08/12/2012 Office Visit-[facility] [place] [id number] [facility] [address] [place] [address] Scott Hair MD [address] [facility] [address] [place], [place] [address] Social History Tobacco Use Types Packs/Day Years [...] old Referring Physician: GABO POOLE Referring Clinic: [facility] CURRENT DIAGNOSES 1. - CAD, 414.00 2. - Hypercholesterolemia, 272.0 3. AZ-S/P Lateral, 412 4. 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 [...] Mr. Escobar had a myocardial infarction back [id number] and underwent bypass surgery at that time. 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[employer]; Sexual Activity - sexually active; Residence - [...] Description 11/03/2023 7:45 AM CDT Office Visit [facility] [place] [address] [facility] [address] [place] [address] Scott Hair MD [address] [facility] [address] [place] [address] documented as of this encounter Visit Diagnoses Not on filedocumented in this encounter Care Teams Jewelry Store Manager Relationship Specialty Start Date End Date Gabo Poole MD PCP - General Internal Medicine 07/23/09 10/25/17 Zacarias Flores [address] [place] [address] PCP - General Family Practice 10/26/17 Gabo Poole MD [facility] [place] [address] PCP - Assigned PCP 03/23/16 04/12/18 Gabo Poole MD [facility] [place] [address] Assigned PCP 03/23/16 12/24/18 Scott Hair MD [address] [place], [place] [address] Assigned Heart and Vascular Provider 12/01/19 05/18/20 Scott Hair MD [address] [place] [id number] Assigned Heart and Vascular Provider 12/15/20 06/05/22 Ana Maria Tinsley APRN INSIDE SALES RECRUITER [address] [place] [phone] Nurse Practitioner Cardiovascular Disease 11/26/21 Ana Maria Tinsley APRN INSIDE SALES RECRUITER [address] [place] [address] Assigned Heart and Vascular Provider 06/06/22 07/24/22 Scott Hair MD [address] [place] [address] Cardiovascular Disease 07/09/22 Scott Hair MD [address] [place] [address] Assigned Heart and Vascular Provider 07/25/22 documented as of this encounter
--- OUTSIDE RECORDS SUMMARY | 2023-09-27 08:40 | XMS_ITS | Encounter Summary ---
Author Organization [facility] Address [address] [place] [address]. [place] [address] Care Team Providers Care Automobile Damage Appraiser Name Role Phone Evangelina Patten MD Primary Care Provider Unavailable Francisco Kumar MD Primary Care Provider Zacarias Flores Primary Care Provider Francisco Kumar MD Unavailable [phone] Francisco Kumar MD Unavailable [phone] Scott Hair MD Unavailable Scott Hair MD Unavailable [phone] Ana Maria Tinsley APRN MEDICAL CODING MANAGER Unavailable [phone] Ana Maria Tinsley APRN MEDICAL CODING MANAGER Unavailable [phone] Scott Hair MD Unavailable [phone] Scott Hair MD Unavailable [phone] Encounter Details Date Type Department Care Team (Late st Contact Info) Description 06/14/2008 Office Visit-[facility] [place] [address] [facility] [address] [place] [address] Scott Hair MD [address] [facility] [address] [place] [id number] Social History Tobacco Use Types Packs/Day Years [...] Referring Physician: EVANGELINA PATTEN CURRENT DIAGNOSES 1. OR-S/P Lateral, 412 2. - Hypercholesterolemia, 272.0 3. 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[employer]; Sexual Activity - sexually active; Residence - lives alone; Place of - [place]; Hours Worked - 40 hours per week; [...] Description 11/03/2023 7:45 AM CDT Office Visit [facility] [address] [facility] [address] [place] [phone] Scott Hair MD [address] [place] [address] [address] [place] [address] documented as of this encounter Visit Diagnoses Not on filedocumented in this encounter Care Teams Automobile Damage Appraiser Relationship Specialty Start Date End Date Evangelina Patten MD PCP - General 03/24/02 07/22/09 Francisco Kumar MD PCP - General Internal Medicine 07/23/09 10/25/17 Sandra Zacarias [address] [place] [address] PCP - General Family Practice 10/26/17 Francisco Kumar MD [address] [place] [address] [place] [address] PCP - Assigned PCP 03/23/16 04/12/18 Francisco Kumar MD [address] [place] [address] [place] [address] Assigned PCP 03/23/16 12/24/18 Scott Hair MD [address] [place] [address] Assigned Heart and Vascular Provider 12/01/19 05/18/20 Scott Hair MD [address] [place] [address] Assigned Heart and Vascular Provider 12/15/20 06/05/22 Ana Maria Tinsley APRN MEDICAL CODING MANAGER [address] [place] [address] Nurse Practitioner Cardiovascular Disease 11/26/21 Ana Maria Tinsley APRN MEDICAL CODING MANAGER [address] [place] [address] Assigned Heart and Vascular Provider 06/06/22 07/24/22 Scott Hair MD [address] [place] [address] Cardiovascular Disease 07/09/22 Scott Hair MD [address] [place] [address] Assigned Heart and Vascular Provider 07/25/22 documented as of this encounter
--- OUTSIDE RECORDS SUMMARY | 2023-09-27 08:40 | XMS_ITS | Encounter Summary ---
Author Organization [facility] Address [address] [place] [address] Care Team Providers Care Tin Roofer Name Role Phone Maxine Casas MD Primary Care Provider Unavailable Francisco Kumar MD Primary Care Provider [phone] Zacarias Flores Primary Care Provider Francisco Kumar MD Unavailable [phone] Francisco Kumar MD Unavailable [phone] Scott Hair MD Unavailable Scott Hair MD Unavailable Ana Maria Tinsley APRN FARM FIELD MANAGER Unavailable Ana Maria Tinsley APRN FARM FIELD MANAGER Unavailable Scott Hair MD Unavailable Scott Hair MD Unavailable [phone] Encounter Details Date Type Department Care Team (Late st Contact Info) Description 05/15/2005 Office Visit-[facility] [address] [place] [address] Unknown, Doctor, Social History Tobacco Use Types [...] old Referring Physician: ZACARIAS MCCLOUD Referring Clinic: [facility] CURRENT DIAGNOSES 1. - Hypercholesterolemia, 272.0 2. - CABG, V45.81 3. - CAD, 414.00 4. 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 Electronically signed by [facility], [employer] Data Conversion at 06/23/2013 4:40 AM CDT documented in this encounter Plan of Treatment Upcoming Encounters Date Type Department Care Team (Late st Contact Info) Description 11/03/2023 7:45 AM CDT Office Visit [facility] [address] [place] [phone] Scott Hair MD [address] [place] [id number] [place] [address] documented as of this encounter Visit Diagnoses Not on filedocumented in this encounter Care Teams Tin Roofer Relationship Specialty Start Date End Date Yessenia Maxine Wiggins MD PCP - General 03/24/02 07/22/09 Francisco Kumar MD PCP - General Internal Medicine 07/23/09 10/25/17 Zacarias Flores [address] [place] [address] PCP - General Family Practice 10/26/17 Francisco Kumar MD [address] [facility] [place] [address] PCP - Assigned PCP 03/23/16 04/12/18 [place] [address] [place] [address] [place] [address] Assigned PCP 03/23/16 12/24/18 Scott Hair MD [address] [place] [address] Assigned Heart and Vascular Provider 12/01/19 05/18/20 Scott Hair MD [address] [place] [address] Assigned Heart and Vascular Provider 12/15/20 06/05/22 Ana Maria Tinsley APRN FARM FIELD MANAGER [address] [place] [address] Nurse Practitioner Cardiovascular Disease 11/26/21 Ana Maria Tinsley APRN FARM FIELD MANAGER [address] [place] [address] Assigned Heart and Vascular Provider 06/06/22 07/24/22 Scott Hair MD [address] [place] [id number] MD Cardiovascular Disease 07/09/22 Scott Hair MD [address] [place] [address] Assigned Heart and Vascular Provider 07/25/22 documented as of this encounter
--- NOTE | 2023-09-27 10:26 | W.ANESCHARGE ---
Anesthesia Charges Start Date/Time Anesthesia Start Date: 09/27/23 Anesthesia Start Time: 10:06 Stop Date/Time Anesthesia Stop Date: 09/27/23 Anesthesia Stop Time: 10:31
--- NOTE | 2023-09-27 11:08 | W.ANESCHARGE ---
Anesthesia Charges Start Date/Time Anesthesia Start Date: 09/27/23 Anesthesia Start Time: 10:06 Stop Date/Time Anesthesia Stop Date: 09/27/23 Anesthesia Stop Time: 10:31
== END 2023-09-27 08:38 | disposition home or self-care (01) ==
LOC: OP CLINIC 08:37
PROVIDERS: PCP Family Medicine; Visit Provider Internal Medicine
DX: Z12.11 Encounter for screening for malignant neoplasm of colon (principal); K63.5 Polyp of colon; K57.30 Diverticulosis of large intestine without perforation or abscess without bleeding
CPT/HCPCS: 00811; 45380; 88305; J2704

== ENCOUNTER 2024-09-04 07:15 | Outpatient (CLI) | payer MEDICARE, SELFPAY | END 2024-09-04 07:16 | disposition home or self-care (01) | LOC: NFLDREF 09-05 07:38 | PROVIDERS: PCP Family Medicine; Referring Provider Family Medicine; Visit Provider Family Medicine | DX: E11.65 Type 2 diabetes mellitus with hyperglycemia (principal); E78.2 Mixed hyperlipidemia; I10 Essential (primary) hypertension; Z12.5 Encounter for screening for malignant neoplasm of prostate | CPT/HCPCS: 80053; 80061; 82043; 82570; G0103 ==